=== PATIENT | male | born 1945 | race Caucasian/White ===

== ENCOUNTER 2016-10-14 11:32 | Inpatient (IN) | payer MEDICARE, OTHER ==
[~2016-10-14] VITALS: Ht 182.9 cm; Wt 143.3 kg
[~2016-10-14 11:32] MED LIST: Acetaminophen PO; CALC0.257 PO; CITA20TA11 PO; INSLIS SUBQ; INSU100V7 SUBQ; POLY17PO6 PO; SENN-133 PO; TAMS0.4C98 PO
[2016-10-14 11:48] VITALS: BP 95/34; PULSE 86; RESP 24; O2SAT 100
--- NOTE | 2016-10-14 11:58 | ED.REPORT ---
HPI-General Illness Date of Service Oct 14, 2016 ED Provider: Misael Schwartz MD Patient is a 71 year old male who presents to the ED via EMS complaining of vomiting onset a few days ago. The patient himself says he generally does not feel well but cannot localize his complaint. He denies cough, dysuria, or any other symptoms. Per caregiver, he has been sick for a number of days. He normally walks about but hasn't moved from his chair, developing sores on his buttocks. He has also been vomiting. Nursing Notes Stated Complaint: DIZZINESS Chief Complaint: General Complaint Nursing Notes Reviewed: Yes Allergies: Coded Allergies: No Known Allergies (Unverified , 03/16/16) Scheduled Ascorbic Acid (Vitamin C) 250 Mg Tab.chew 250 MG PO DAILY Citalopram (Citalopram) 20 Mg Tablet 20 MG PO DAILY Ferrous Sulfate (Iron) 325 Mg Capsule.er 325 MG PO DAILY Insulin Glargine (Lantus U100 Insulin Vial) 100 Unit/Ml Vial 10 UNIT SUBQ DAILY Insulin Human Lispro (HumaLOG U100 Insulin Vial) 100 Unit/Ml Unit 0 UNIT SUBQ WMHS Check blood sugars before meals and at bedtime. Use correction factor only before meals. Blood Sugar Lispro Correction: <151, 0 units; 151-175, 1 unit; 176-200, 2 units; 201-225, 3 units; 226-250, 4 units; 251-275, 5 units; 276-300 , 6 units; 301-325, 7 units; 326-350, 8 units; 351-375, 9 units; 376-400, 10 units; >400, 12 units. 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 Physical Exam Vital Signs Vital Signs Date Time Temp Pulse Resp B/P Pulse Ox O2 Delivery O2 Flow Rate FiO2 1/12/17 11:48 36.3 86 24 95/34 100 Room Air Initial VS: Reviewed General/Constitutional: Well-developed, Well-nourished Head / Eyes: Atraumatic, Normocephalic Neck: Full range of motion Neurologic: Alert Psychiatric: Mood/affect normal Distress / Hydration: Positive: Distress mild Small amount of brown emesis upon exam Respiratory / Chest: Atraumatic tachypneic Skin: Dry No erythema Multiple bilateral breakdowns in skin of buttocks, R more than L Interpretation & Diagnostics Lab Results Interpretation Result Diagram: 10/14/16 1045 10/14/16 1045 Test 10/14/16 10:45 10/14/16 12:03 10/14/16 12:40 10/14/16 13:29 White Blood Count 16.4th/mm3 (3.8-10.1) Red Blood Count 2.96mil/mm3 (4.40-5.80) Hemoglobin 9.0g/dL (13.8-17.2) Hematocrit 25.7% (41.0-50.0) Mean Corpuscular Volume 86.8fL (81-100) Mean Corpuscular Hemoglobin 30.4pg (27.0-35.0) Mean Corpuscular Hemoglobin Concent 35.0% (32.0-37.0) Red Cell Distribution Width 12.4% (12.3-15.4) Platelet Count 251bil/L (150-400) Neutrophils (%) (Auto) 67.7% (40-74) Lymphocytes (%) (Auto) 20.1% (14-46) Monocytes (%) (Auto) 11.0% (4-12) Eosinophils (%) (Auto) 0.1% (0-5) Basophils (%) (Auto) 0.1% (0-3) Prothrombin Time 11.5sec (8.1-12.5) Prothromb Time International Ratio 1.07ratio Sodium Level 130mEq/L (134-144) Potassium Level 5.3mEq/L (3.5-5.2) Chloride Level 93mEq/L (97-108) Carbon Dioxide Level 5mmol/L (18-29) Blood Urea Nitrogen 202mg/dL (8-27) Creatinine 14.07mg/dL (0.76-1.27) Estimat Glomerular Filtration Rate 4mL/min (>59) Glucose Level 148mg/dL (60-99) Calcium Level 7.2mg/dL (8.5-10.1) Phosphorus Level 12.4mg/dL (2.5-4.9) Magnesium Level 2.0mg/dL (1.6-2.6) Total Bilirubin 0.4mg/dL (0.0-1.2) Aspartate Amino Transf (AST/SGOT) 21U/L (0-50) Alanine Aminotransferase (ALT/SGPT) 20U/L (0-44) Alkaline Phosphatase 69U/L (25-160) Troponin T 0.192ug/L (0.0-0.011) Total Protein 8.1g/dL (6.4-8.4) Albumin 3.4g/dL (3.4-5.0) Hold Purple Top Tube Received (Received) Hold Blue Top Tube Received (Received) Hold Red Top Tube Received (Received) Hold [place] Top Tube Received (Received) Lactic Acid Level 1.7mmol/L (0.4-2.0) Urine Color Bloody (YELLOW) Urine Appearance Turbid (CLEAR,HAZY) Urine pH 6.0 (5.0-8.0) Urine Specific [place] 1.020 (1.003-1.035) Urine Protein 100mg/dL (NEG,TRACE) Urine Glucose (UA) Negativemg/dL (NEGATIVE) Urine Ketones Negativemg/dL (NEGATIVE) Urine Occult Blood Large (NEGATIVE) Urine Nitrite Negative (NEGATIVE) Urine Bilirubin Negative (NEGATIVE) Urine Urobilinogen Normalmg/dL (NORMAL) Urine Leukocyte Esterase Large (NEGATIVE) Urine RBC Packed/hpf (0-2) Urine WBC Packed/hpf (0-5) Urine Epithelial Cells Occasional/hpf (NONE-MOD) Urine Crystals None seen (NONE SEEN) Urine Bacteria Moderate/hpf (NONE-FEW) Urine Hyaline Casts None/lpf (NONE) Urine Granular Casts None seen (NONE SEEN) Urine Waxy Casts None seen (NONE SEEN) Urine Red Blood Cell Casts None seen (NONE SEEN) Urine White Blood Cell Casts None seen (NONE SEEN) Urine Mucus None seen (None Seen) Urine Trichomonas None seen (NONE SEEN) Urine Yeast None (NONE SEEN) Urinalysis Comment None Urine Culture Reflexed Indicated ECG Interpretation ECG Interpretation: sinus rate 94 RBBB and LAFB Abnormal T waves, lateral leads Time: 13:46 Interpreted by: ED physician X-Ray Chest Interpretation Chest Xray Interpretation: IMPRESSION: No acute cardiopulmonary findings. Dictated by: Nathalia Ray M.D. on 10/14/2016 at 13:45 Approved by: Nathalia Ray M.D. on 10/14/2016 at 13:45 View: Portable, 1 view Interpretation / Wet Read by: Interpret - Radiologist CT Abd / Pelvis Interpretation IMPRESSION: 1. Decreased, mild bilateral hydronephrosis. Decreased bilateral ureteral dilatation. No urinary tract calcification. 2. Moderate diffuse urinary bladder wall thickening, suggestive of cystitis. Cystoscopy is recommended to exclude underlying neoplasm. 3. Presumed transitional cell carcinoma versus renal cell carcinoma within the left interpolar kidney is unchanged. 4. Bowel containing umbilical hernia without evidence of associated strangulation, nor obstruction. Dictated by: Maria Eugenia Ball M.D. on 10/14/2016 at 14:04 Approved by: Maria Eugenia Ball M.D. on 10/14/2016 at 14:04 Study type: Abdominal CT no contrast Interpretation / Wet Read by: Interpret - Radiologist Re-Eval/Medical Decision Time of Eval: 14:00 Re-Evaluation/Progress Note: Discussed plan for admission. Patient understands and agrees with plan. All questions addressed at this time. Consultation #1: Referral / Consult Name: John Pickering MD Call Returned at: 13:50 Coil Finisher: Will see patient, Agrees with eval, Agrees with plan, Accepts admit Note: Discussed patient's case. Accepts admit. Consultation #2: Referral / Consult Name: Edgar De La Rosa MD Consulted With: Nephrology Call Returned at: 12:55 Coil Finisher: Will see patient Note: Discussed patient's case. Suggested lees. Counseled Regarding: Diagnosis, Lab results, Need for admission Discharge & Departure Primary Impression: GIGI (acute kidney injury) Additional Impressions: Obstructive uropathy Metabolic acidosis Disposition: ADMITTED TO HOSPITAL Referrals: Xiomara Clark MD (PCP) Crit Care Except Billable Proc Time Spent: 30-74 minutes Services Performed: Patient management by me, Time spent at bedside, Reviewing test results, Reviewing imaging, Discussing patient care, Documentation in record Scribe Attestation Portions of this note were transcribed by Betsey Jaime. I, Dr. Schwartz personally performed the history, physical exam and medical decision-making; I reviewed and confirmed the accuracy of the information in the transcribed note. Signed by: Betsey Jaime 10/14/16, 1433 copies to: Xiomara Clark MD, Kirk H MD Oct 14, 2016 11:58 BETSEY JAIME Oct 14, 2016 12:44
[2016-10-14] MEDS ORDERED: 0.9% Sodium Chloride 1,000 ML IV ONE ×2 (12:06→13:35)
[2016-10-14] MEDS ORDERED: Pantoprazole 4 mg/mL 10 mL Inj IVPUSH ONE (12:10)
[2016-10-14 12:27] LABS: BASOPHILS % (AUTO) 0.1 % (0-3); EOSINOPHILS % (AUTO) 0.1 % (0-5); Mean Corpuscular Hemoglobin 30.4 pg (27.0-35.0); Mean Corpuscular Volume 86.8 fL (81-100); NEUTROPHILS % (AUTO) 67.7 % (40-74); Platelet Count 251 bil/L (150-400)
[2016-10-14 12:31] LABS: INR 1.07 ratio
[2016-10-14] MEDS ORDERED: Pantoprazole Inj 80 MG, Pharmacy To Mix 1 EA in 0.9% Sodium Chloride 80 ML IV ONE ×2 (12:40)
[2016-10-14] MEDS ORDERED: Ondansetron 2 mg/mL 2 mL Inj IVPUSH PRN (12:40)
[2016-10-14 12:51] LABS: Phosphorus 12.4 mg/dL (2.5-4.9)
[2016-10-14 13:00] LABS: TROPONIN T 0.192 ug/L (0.0-0.011)
[2016-10-14] MEDS ORDERED: Piperacillin-Tazo 3.375 Gm Inj 3.375 GM in Dextrose 5% Minibag Plus 50 ML IV ONE (13:10)
[2016-10-14] MEDS ORDERED: Vancomycin Dose per Pharmacist XX ONE (13:10)
[2016-10-14] MEDS ORDERED: Lidocaine 2% 6mL Topical Jelly ONE (13:15)
--- NOTE | 2016-10-14 13:47 | DRSVH ---
PROCEDURE: X-RAY CHEST ONE VIEW, PORTABLE ([id number]) INDICATIONS: sepsis TECHNIQUE: One view of the chest was acquired. COMPARISON: None. FINDINGS: Surgical changes and devices: None. Lungs and pleura: No pleural effusions or pneumothorax. Lungs are clear. Mediastinum: Mediastinal contours appear normal. Heart size is normal. Bones and chest wall: No suspicious bony lesions. Overlying soft tissues appear unremarkable. IMPRESSION: No acute cardiopulmonary findings. Dictated by: Nathalia Ray M.D. on 10/14/2016 at 13:45 Approved by: Nathalia Ray M.D. on 10/14/2016 at 13:45
[2016-10-14] MEDS ORDERED: TAMS0.4C29 PO (13:59)
[2016-10-14] MEDS ORDERED: FERR325C PO (14:01)
[2016-10-14] MEDS ORDERED: ASCO-294 PO (14:01)
[2016-10-14] MEDS ORDERED: HYDROcodone-APAP 5-325 mg Tablet PO PRN (14:05)
[2016-10-14] MEDS ORDERED: Polyethylene Glycol (PEG) 17 Gm Powder PO PRN (14:05)
--- NOTE | 2016-10-14 14:06 | DRSVH ---
PROCEDURE: CT ABDOMEN AND PELVIS WITHOUT CONTRAST ([id number]) INDICATIONS: vomiting/sepsis TECHNIQUE: Noncontrast 5 mm thick sections acquired from the diaphragms to the symphysis. 5 mm coronal and sagi ttal reformats were then performed. For radiation dose reduction, the following was used: automated exposure control, adjustment of mA and/or kV according to patient size. COMPARISON: [facility], US, US RENAL, 03/17/2016, 17:49. [facility], CT, CT KUB, 03/16/2016, 18:44. FINDINGS: Image quality:. Degraded by motion artifact. ABDOMEN: Lung bases: Lung bases are clear. Heart size is enlarged. Solid organs: Liver and spleen are normal in size. Gallbladder is mildly distended, as before. Jamil creas is normal in contours. No adrenal nodules. Moderate renal atrophy is present, as before. Parti ally exophytic mass involving the left interpolar kidney is unchanged, measuring roughly 41 mm. No ne phrolithiasis. There is decreased, mild to moderate bilateral ureteral dilatation. Peritoneum and bowel: Unenhanced bowel loops demonstrate normal wall thickness and caliber. No free fluid or air. Nodes and vessels: No retroperitoneal or mesenteric adenopathy by size criteria. Aorta and inferior vena cava are normal in caliber. Miscellaneous: There is a 20 mm diameter umbilical hernia containing a loop of bowel, with no evidenc e of associated bowel strangulation, nor obstruction. PELVIS: Genitourinary: There is moderate diffuse urinary bladder thickening. Urinary bladder is decompressed, and demonstrates a Watts catheter within its lumen. Miscellaneous: No inguinal hernias or adenopathy. Bones: No suspicious bony lesions. No vertebral body compression fractures. IMPRESSION: 1. Decreased, mild bilateral hydronephrosis. Decreased bilateral ureteral dilatation. No urinary trac t calcification. 2. Moderate diffuse urinary bladder wall thickening, suggestive of cystitis. Cystoscopy is recommende d to exclude underlying neoplasm. 3. Presumed transitional cell carcinoma versus renal cell carcinoma within the left interpolar kidney is unchanged. 4. Bowel containing umbilical hernia without evidence of associated strangulation, nor obstruction. Dictated by: Maria Eugenia Ball M.D. on 10/14/2016 at 14:04 Approved by: Maria Eugenia Ball M.D. on 10/14/2016 at 14:04
[2016-10-14] MEDS ORDERED: ASCO250T7 PO (14:20)
[2016-10-14 14:22] LABS: APPEARANCE,URINE TURBID (CLEAR,HAZY); COLOR,URINE BLOODY (YELLOW); OCCULT BLOOD,URINE LARGE (NEGATIVE); UROBILINOGEN,URINE NORMAL (NORMAL)
[2016-10-14] MEDS ORDERED: Glucose 40% Oral Gel 15 Gm Tube PO PRN (14:25)
[2016-10-14] MEDS ORDERED: Sodium Bicarb (50 mEq) 8.4% 1 mEq/mL 50 mL Syringe IVPUSH ONE (14:30)
--- NOTE | 2016-10-14 14:35 | NUR ---
Med rec incomplete Pt. is agitated and confused but gives firm answers to medication questions indicating he takes only 4 pills daily and insulin once daily only some days. Meds he says he takes are: vitamin C, iron Otc, "a happy pill" and "another pill that's pink." "from Dr. Nicholas." Meds entered based on PCP list and [facility] history. Caregiver is unavailable to verify meds. She will bring med bottles in later. IT appears pt. is confused re: instructions on insulin use and is using it infrequently. Per [facility] (Pt.s stated only pharmacy) pt. has not filled meds since last year, 08/2016 and 04/2016. Med rec should be updated per med bottles brought in by caregiver Gill
--- NOTE | 2016-10-14 14:39 | NUR ---
Contacts Friend Grant Sevilla at pt. bedside and states "I'm his best bud." Offers assistance for pt. if needed. His phone number is: [phone].
--- NOTE | 2016-10-14 14:40 | NUR ---
Caregiver contact info. Per friend Grant, pt. lives with a private caregiver Gill Main whose number is [phone].
[2016-10-14 14:53] VITALS: BP 98/48; PULSE 101; RESP 20; O2SAT 100
[2016-10-14 14:55] VITALS: PULSE 102
--- NOTE | 2016-10-14 15:04 | NUR ---
Social work referral draw off worker/ unit rehabilitation case coordinator contacted for follow up regarding pt.'s ability to care for himself at home. Pt. is confused and agitated at the moment, unable to answer questions appropriately but per [facility] records pt. has not filled any meds but tamsulosin since 04/2016.
[2016-10-14] MEDS ORDERED: Vancomycin Serum Trough XX ONE (15:50)
[2016-10-14] MEDS ORDERED: VANCOMYCIN IV ONE ×2 (16:00)
[2016-10-14] MEDS: Sodium Bicarb 8.4% Inj 150 MEQ in Dextrose 5% 1,000 ML IV SCH (16:00)
[2016-10-14] MEDS ORDERED: DEXTROSE IV ONE ×2 (16:00)
[2016-10-14] MEDS: Sodium Chloride LOK Flush 10 mL Syringe IVFLUSH SCH (16:30)
[2016-10-14] MEDS: Insulin LISPRO 300 Unit/3 mL Inj SUBQ SCH ×2 (17:30→22:26)
[2016-10-14 17:37] LABS: Phosphorus 11.7 mg/dL (2.5-4.9)
--- NOTE | 2016-10-14 17:47 | PCM.HPMED ---
Subjective Date of Service Oct 14, 2016 Primary Provider: Admitting Physician: John Pickering MD Primary Care Physician: Xiomara Clark MD Attending Physician: John Pickering MD Admit Status: From the Emergency Department, Admit to [facility] Team Chief Complaint: 71-year-old man with history of obstructive uropathy presents with nausea, anorexia constitutional decline and acute renal failure History of Present Illness: The patient is very fatigued and not able to provide a lengthy history or significant details. He states that he has had nausea and vomiting for 3 days resulting in very poor oral intake. States he has been feeling lousy all over. This is been associated with presyncope, resulting in reduced ambulation. Denies fevers or bad chills. He denies infectious exposures. He has no pain. He has no dyspnea when queried about his urinary function he feels he has not been having a problem initiating urination. He has no suprapubic pain. Review of Systems: Complete review of systems was attempted. Patient was too fatigued to comply fully with significant findings are noted in the history of present illness and PMH. Incidental note is made of pruritus with skin lesions. He also endorses chronic lower extremity leg pain which he attributed to diabetic neuropathy. Allergies Coded Allergies: No Known Allergies (Unverified , 03/16/16) Home Medications Glargine insulin 10 units daily Lispro insulin by correctional scale Tamsulosin 0.4 mg daily Citalopram 20 mg daily Ferrous sulfate 325 mg daily Ascorbic acid 250 mg daily . PMH # Obstructive uropathy with urinary infection - admitted to [facility] and 03/18; Dr. Virk performed cystoscopy; Morganella species UTI # Chronic kidney disease - baseline creatinine at discharge and 03/18 was 4.6 # Left renal mass - 3.8 cm left superior pole by ultrasound in 03/2016 # Type II diabetes # Obesity class II Family History Patient is not aware of details. Denies family history of kidney problems. Social History Hx Alcohol Use: No Hx Substance Use: No Smoking Status: Former Smoker Living Arrangement: with Friends/Roommate (24-hour caregiver) Additional Information Minimally ambulatory. No special diet. Exam Vital Signs Vital Sign - Last Date Time Temp Pulse Resp B/P Pulse Ox O2 Delivery O2 Flow Rate FiO2 10/14/16 11:48 36.3 86 24 95/34 100 Room Air Exam General: Pale obese man with Kussmaul breathing and mild distress; uremic gallo looking. HEENT: sclerae anicteric, oral mucosa very dry Neck: no apparent JVD, supple Chest: No focal lesions or tenderness Lungs: Symmetric expansion, clear to auscultation Cardiac: S1S2, no murmur Abdomen: Protuberant abdomen. BS normal, non-tender. Watts present. No suprapubic tenderness. Extremities: No significant edema. No focal joint tenderness. Calf muscles are tender to palpate. Skin: Multiple small healed ulcerations on arms bilaterally;Chronic lower extremity stasis changes with dry ulceration. Neuro: A&O, cranial nerves appear symmetric, no flap, motor strength and coordination are grossly normal, no mild clonus, reflexes diminished Lab and Diagnostics Labs Uric acid 10.6 Total calcium 7.2 Phosphorus 12.4 Lactic acid 1.7 Troponin T 0.192 Result Diagram: 10/14/16 1045 10/14/16 1045 Microbiology UA: SG 1.020, protein 100 MG/DL, packed WBC, packed RBC, moderate bacteria Urine Culture pending Blood cultures pending X-Rays, CTs and MRIs PROCEDURE: CT ABDOMEN AND PELVIS WITHOUT CONTRAST ([id number]) IMPRESSION: 1. Decreased, mild bilateral hydronephrosis. Decreased bilateral ureteral dilatation. No urinary tract calcification. 2. Moderate diffuse urinary bladder wall thickening, suggestive of cystitis. Cystoscopy is recommended to exclude underlying neoplasm. 3. Presumed transitional cell carcinoma versus renal cell carcinoma within the left interpolar kidney is unchanged. 4. Bowel containing umbilical hernia without evidence of associated strangulation, nor obstruction. Dictated by: Maria Eugenia Ball M.D. on 10/14/2016 at 14:04 PROCEDURE: X-RAY CHEST ONE VIEW, PORTABLE ([id number]) IMPRESSION: No acute cardiopulmonary findings. Dictated by: Nathalia Ray M.D. on 10/14/2016 at 13:45 . Assessment & Plan 71-year-old man with history of obstructive uropathy, diabetes and obesity presents with probable gastroenteritis syndrome resulting in dehydration and acute renal failure. # Acute renal failure. Abdominal CT scan reveals no fixed obstruction. There is no hydronephrosis after Watts catheter was placed. Current differential is most likely dehydration related to gastroenteritis, less likely recurrent bladder outlet obstruction. Electrolytes are very disordered on presentation: metabolic acidosis, with anion gap 32, serum bicarbonate 5, Potassium 5.3, uric acid 10.6. Calcium phosphorus product approximately 90. - Aggressive isotonic hydration with sodium bicarbonate - Nephrology consult appreciated - Consider timing of placement of temporary hemodialysis catheter; will make patient nothing by mouth after midnight tonight pending this decision in the morning - Amphojel (oral aluminum hydroxide) for phosphate reduction; sevelamer with meals for phosphate binding - We will defer to nephrology for hyperuricemia treatment options - Follow daily renal panel - Renal adjustment of all medications # Urinary tract infection. Last infection in 03/2016 was a pansensitive Morganella morganii. He has not had significant antibiotic exposure since. Is not administered. - Continue ceftriaxone - Await results of urine culture # Sepsis. SIRS criteria on admission include pulse 101, respiratory rate 24, WBC 16.4. Mean arterial pressure is 65. Focal infection is urinary. Organ system dysfunction is acute renal failure. - Fluid resuscitation with sodium bicarbonate - Careful intake and output measurements with Watts catheter - We will reduce fluid rate after urine output greater than 0.5 mL per KG per hour - Monitor blood pressure - Antibiotics for urinary infection # Nausea vomiting or anorexia. Possible viral gastroenteritis, but no evidence of diarrhea. Doubt active infection at this time. Current nausea may be related to uremia. Abdomen is clinically benign. - Antiemetics as needed - Follow GI function clinically # Type II diabetes mellitus. - 4 times a day capillary blood glucose - Glucose control goals: Random less than 180, fasting less than 140, none less than 70 - Insulin as needed, divided 50-50 long-acting and nutritional/correctional # Obstructive uropathy. CT scan revealing bladder wall thickening, also chronic left renal lesion consistent with neoplasm. - Continue Watts catheter present - Urology consult Chronic stable problems: - Obesity - Depression - Anemia - current hemoglobin 9.0. Past baseline is approximately 8. No indication for transfusion at this time. Patient is admitted to inpatient service with expectation of greater than 2 midnights of inpatient therapy required for acute renal failure and urinary infection with sepsis Pain Evaluation: Adequate Pain Control VTE Prophylaxis: SCDs Resuscitation Status: CPR: Attempt Resuscitation Time spent 70 minutes John Pickering MD Oct 14, 2016 14:24
--- NOTE | 2016-10-14 19:42 | CONS ---
[address] [address] CONSULTATION REPORT PATIENT: SUMAYA VASQUEZ : 1945 MR#: [id number] ADMIT: 10/14/2016 JOB ID: [id number] DATE OF SERVICE: 10/14/2016 REQUESTING PHYSICIAN: Dr. Pickering. REASON FOR CONSULTATION: Management of severe renal insufficiency. CHIEF COMPLAINT: Not feeling well. PRESENT ILLNESS: This is a 71-year-old male with significant past medical history of chronic kidney disease, stage 4, obstructive uropathy, left renal mass, peripheral vascular disease, gout, type 2 diabetes who presented to the hospital with a complaint of weakness. The patient is a very poor historian. He was unable to provide any history. I have gathered the history from the medical record. The patient admitted previously at [facility] in March 2016 due to acute kidney injury on chronic kidney disease. He was found to have obstructive nephropathy. CAT scan of the abdomen was done. At that time showed [id number] bladder distention, severe bilateral hydroureteronephrosis and left renal mass. Urology was consulted. The patient has cystoscopy with dilatation of the urethral stricture. At that time, he came in with a serum creatinine of 9.77. After IV fluids and Watts catheter placement, his serum creatinine had gone down to 4.61 on the discharge day. Later on, the patient was seen by Dr. Santos on March 29, 2016 and a creatinine at that time came down slightly to 4.3. Watts catheter was later removed in April 2016. He was continued on Flomax 0.4 mg once a day. Last followup with urologist was seen April 2016. Moreover, he was seen by primary care physician in June 2016. Creatinine at that time was 3.11. Patient claimed that at the moment he is feeling weak, no appetite and has been vomiting for several days. When asked further questions, he refused again to provide me any further history. CT abdomen and pelvis done in the emergency department showed decreased bilateral hydronephrosis, decreased bilateral urethral dilatation, moderate diffuse urinary bladder wall thickening, presumed transitional cell carcinoma versus renal cell carcinoma within left interpolar kidney, and umbilical hernia. CHEST X-RAY: Does not show any acute infiltrates or pleural effusion. PAST MEDICAL HISTORY: 1. Chronic kidney disease, stage 4. Last serum creatinine in June was 3.1. 2. History of obstructive uropathy, status post cystoscopy with urethral dilatation. 3. History of a complicated UTI in March 2016. 4. Obesity. 5. Peripheral vascular disease. 6. Longstanding type 2 diabetes. 7. Gout. PAST SURGICAL HISTORY: Status post cystoscopy with urethral dilatation in March 2016. SOCIAL HISTORY: Denies current use of alcohol, tobacco, or illicit drugs. FAMILY HISTORY: Positive for kidney disease in the family. Father is on dialysis. REVIEW OF SYSTEMS: Unable to obtain. MEDICATIONS: 1. Vitamin C. 2. Citalopram. 3. Ferrous sulfate. 4. Insulin glargine. 5. Tamsulosin ER. PHYSICAL EXAMINATION: Vitals: Temperature 36.3, pulse 101, respiratory rate 20, blood pressure 98/48, pulse ox 100% with nasal cannula 2 L. General appearance: Chronically ill-looking, mild distress, tachypneic. HEENT: Mild pallor. No jaundice. No JVD. No lymphadenopathy. No thyroid enlargement. Dry mucosal membranes. Heart: Regular rhythm. Normal S1, S2. No murmurs, rubs, or gallops. Tachycardic. Lungs: Equal breath sounds bilaterally. No wheezing. No rhonchi. Abdomen: Soft, nontender, nondistended. No hepatosplenomegaly. Active bowel sounds. Extremity: No edema, cyanosis or clubbing. Skin: Multiple crusted papules and excoriations noted on upper extremity and lower extremities. LABORATORY: WBC 16.4, hemoglobin 9.0, sodium 130, potassium 5.3, chloride 93, bicarb 5, BUN 202, creatinine 14, calcium 7.2, phosphorus 12.4, troponin 0.192, uric acid 10.6. UA: Specific gravity 1.020, packed RBCs, packed WBCs. ASSESSMENT: 1. Severe renal insufficiency: Acute kidney injury on chronic kidney disease versus worsening chronic kidney disease and now reached end-stage renal disease. The patient presented with nausea, vomiting and weakness. Could be due to uremic symptoms or sepsis. At this point, I would like to stabilize the patient by giving IV fluids to restore intravascular volume. The patient has received normal saline in the emergency department. At this point, I will put him on D5 water plus sodium bicarb 150 mEq run at 200 cc/hour. Will repeat kidney function tests again today and tomorrow. If his clinical symptoms and kidney function do not improve, we will proceed with renal replacement therapy. 2. Electrolyte disturbance including hyponatremia, hyperkalemia, anion gap metabolic acidosis and hyperphosphatemia. At this point, I will give the patient sodium bicarbonate 100 mEq IV push followed by bicarb drip run at 200 cc/hour. Will start the patient on Amphojel 45 cc q.8 h. treating for severe hyperphosphatemia. 3. History of obstructive uropathy status post cystoscopy and urethral dilatation. We have inserted a Watts catheter. Patient now has gross hematuria. We will consult Urology for further recommendation. 4. Left renal mass. Rule out renal cell carcinoma and transitional cell carcinoma. 5. Hypotension secondary to intravascular volume depletion and sepsis. Recommend again IV fluids and broad-spectrum IV antibiotics. Thank you for the consultation. We will monitor along with you.
--- NOTE | 2016-10-14 19:54 | NUR ---
Admit to PCC/Bloody Urine/nausea Pt arrived on PCC at 1450 Cardiac: Pt denies CP, Tele: 90s-100s. IVCD Resp: Pt arrived on floor feeling short of breath and was tachypnic. Breathing seems to have eased after getting bicarb bolus. SPO2 mid 90s on RA. GI/: Pt reports mild nausea and abdominal discomfort, no emisis since arrival to floor. Watts placed in ED and draining dark red blood with clots. Dr odonnell is aware. Neuro: Pt is A&Ox3 but confused and his attention drifts.
[2016-10-14 20:16] VITALS: BP 121/71; PULSE 95; RESP 20; O2SAT 100
[2016-10-14] MEDS: cefTRIAXone Inj 2,000 MG in IV Premix 1 EACH IV SCH (20:25)
[2016-10-14] MEDS: Insulin GLARgine 100 Unit/mL Syringe SUBQ SCH (22:25)
[2016-10-14] MEDS: ALUMINUM HYDROXIDE PO SCH (22:26)
[2016-10-14 23:47] VITALS: BP 114/64; PULSE 80; RESP 20; O2SAT 100
[2016-10-15] VITALS (12 sets, daily range): BP systolic 101–112; BP diastolic 52–69; PULSE 77–85; RESP 16–28; O2SAT 99
[2016-10-15] MEDS: Sodium Chloride LOK Flush 10 mL Syringe IVFLUSH SCH ×4 (00:30→23:11)
[2016-10-15] MEDS: Sodium Bicarb 8.4% Inj 150 MEQ in Dextrose 5% 1,000 ML IV SCH ×5 (00:32→20:15)
[2016-10-15] MEDS ORDERED: 0.9% Sodium Chloride 250 ML ONE ×2 (03:13→06:22)
[2016-10-15] MEDS: ALUMINUM HYDROXIDE PO SCH ×3 (06:30→22:30)
[2016-10-15] MEDS: Ondansetron 2 mg/mL 2 mL Inj IVPUSH PRN ×3 (07:03→18:35)
--- NOTE | 2016-10-15 08:01 | NUR ---
H&H/Blood transfusion/Nausea Notified fire extinguisher charger that pt was putting out a substantial amount of what looked like just blood in lees, vitals stable but pt was rather pale. director financial systems ordered stat H&H which was critical at 6.9/19.6, notified, order given for 2 units PRBCs to transfuse. Once consent given and signed by MD and pt, these were started. Pt has completed one unit PRBC w/out complication. Second one started this morning, day nurse aware. also ordered for H&H to be drawn 3 hours post second infusion of PRBCs, day nurse aware. Pt denied pain or nausea throughout night but early this morning stated he was having nausea. No emesis noted, Zofran given, pt stated some relief with this. Vitals stable within first 15 min of second blood transfusion, continuing to monitor, day nurse aware of nausea and transfusion in progress. Addendum: 10/15/16 at 0817 by JOHN DISLA RN Lees output slowed significantly at end of shift. Bicarb infusion slowed to 100 while transfusion was also running in separate line so as not to overload.
[2016-10-15] MEDS: cefTRIAXone Inj 2,000 MG in IV Premix 1 EACH IV SCH (08:40)
[2016-10-15] MEDS: Insulin LISPRO 300 Unit/3 mL Inj SUBQ SCH ×4 (08:49→21:26)
[2016-10-15 10:12] LABS: BASOPHILS % (AUTO) 0.2 % (0-3); EOSINOPHILS % (AUTO) 0.3 % (0-5); Mean Corpuscular Hemoglobin 30.3 pg (27.0-35.0); Mean Corpuscular Volume 84.3 fL (81-100); NEUTROPHILS % (AUTO) 71.5 % (40-74); Platelet Count 174 bil/L (150-400)
[2016-10-15 10:36] LABS: Phosphorus 10.3 mg/dL (2.5-4.9)
--- NOTE | 2016-10-15 12:30 | CONS ---
[address] [address] CONSULTATION REPORT PATIENT: SUMAYA VASQUEZ : 1945 MR#: [id number] ADMIT: 10/14/2016 JOB ID: [id number] DATE OF SERVICE: 10/15/2016 INFECTIOUS DISEASE CONSULT: I thank Dr. Vihsal Pickering for this timely consult. REASON FOR CONSULTATION: Staphylococcal bacteremia and apparent staphylococcal urinary tract infection in a patient with rapidly progressive renal failure and multiple medical problems. 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 He has had a variety of problems over the past few years including obstructive uropathy, nephrolithiasis, multiple urinary tract infections, progressive renal insufficiency and a left renal mass. The left renal mass was noted originally this past summer and has been followed expectantly without biopsy or surgery to this point. He has undergone urologic procedures though to address his obstructive uropathy. More recently, his creatinine was about 3-4, and he was being followed for that as well. The patient was admitted yesterday evening through the emergency department because of persistent nausea, vomiting, weakness, decreased oral intake, anorexia, near syncope and malaise. He reports these symptoms have been fairly insidious and worsening over several days. Because of this profound weakness and GI symptoms, he has really been unable to get around or do much of anything, and for that reason, presented to the ED and was admitted. He was admitted because his creatinine was found to be 12, and he had a basically purplish, low-volume urine output. Temporary dialysis now being urgently arranged. The patient tells us in the past few days though he has been free of any fevers, chills, or sweats. He states he is always short of breath, both at rest and with exertion, and he is not sure that has changed very much. He denies urgency, frequency, or dysuria but does note that his urine production has dropped off and when asked specifically if it has been purple, he agrees that it actually has been, though he did not volunteer that as part of his history. At this point, the patient reports he is short of breath and extremely hungry. PAST MEDICAL HISTORY: 1. Obstructive uropathy. 2. Nephrolithiasis. 3. Chronic renal insufficiency. 4. History of recurrent urinary tract infections including morganella UTIs. 5. Left renal mass, which has been followed expectantly since March 2016. 6. Type 2 diabetes. 7. Gout. 8. Peripheral vascular disease. 9. Morbid obesity, with BMI greater than 40. 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 He was a rare consumer of alcohol, and does not drink at all anymore. He is an ex-cigarette smoker. FAMILY HISTORY: Negative for tuberculosis. REVIEW OF SYSTEMS: The patient has no significant headache or visual complaints. He denies sore throat or trouble swallowing. Says he is always short of breath but does not notice much of a cough. No chest pain at this time. He has had nausea and vomiting, which have been worsening for several days. No diarrhea. He denies urgency, frequency, or dysuria but notes that his urine is purple. He has just diffuse and unrelenting weakness, which has gotten so bad he cannot get out of a chair, basically. He denies focal neurologic complaint. PHYSICAL EXAMINATION: Reveals a quite ill-appearing gentleman lying supine in his hospital bed. His temperature is 36.4, and he has been afebrile during his less than 24 hours here, pulse 85, respiratory rate 28, blood pressure 108/67. He is saturating well on room air. Examination of the mental status reveals that he is somnolent at times but can be roused to give a history, which is accurate, and that he is oriented when he aroused and awake. Head without trauma. Eyes without scleral icterus or conjunctivitis. Nose normal. Oral cavity without thrush or hairy leukoplakia. His neck is without adenopathy. Lungs relatively clear. Cardiac tones: Regular rate and rhythm but distant. No rub is heard. Abdomen obese, soft, and nontender. Penis and scrotum appear normal. A Watts catheter is present draining an extraordinary thick purplish liquid, which we assume to be urine. Examination of the extremities reveals diffuse bilateral venous stasis changes with some brawny changes to the skin. There is no obvious infection. The patient has diminished pulses in his feet bilaterally. In fact, I cannot palpate them. He has slow capillary refill bilaterally. There is no obvious infection of his lower extremities at this point. Neurologically, the patient can move his extremities but otherwise formal neuro exam is really not possible due to his lethargy. He does not have peripheral stigmata of endocarditis on his hands or in his conjunctivae. LABORATORIES: Include white blood count 16,000 on admission, now 11,000. Normal diff, interestingly. He is quite anemic with hematocrit this morning of 20. Creatinine is an amazing 12.9. It was 14 yesterday in the emergency department. His most recent creatinine in the computer at least before that was 4.6, which was this summer. Albumin 2.7. Parathyroid hormone 763. Liver function tests are normal. Vancomycin trough was 25, which indicates he is going to have vancomycin on board for a long time. Urinalysis shows packed white cells. Urine culture is growing a heavy growth of a staph species, which is beta hemolytic, though not proven, that strongly suggests this is Staph aureus. A single blood culture, 10/06, done in the ED yesterday has turned positive, and we have no idea yet if this is coag-negative or positive. IMAGING: Abdominal and pelvic CT scan shows mild hydronephrosis, which is bilateral. No urinary tract calcifications are seen. There is diffuse bladder wall thickening, which could be malignant or cystitis, and a presumed malignancy in the left kidney which is unchanged from this summer and is thought to be transitional cell or renal cell. IMPRESSION: This is an interesting and unfortunate case of an older gentleman who has had fairly severe and worsening chronic renal insufficiency for some months now. He has a great deal of urinary tract pathology, having had obstructive uropathy, stones and a left renal mass previously diagnosed. He presents now basically with symptoms consistent with acute superimposed on chronic renal insufficiency with life-threatening abnormalities of his creatinine and potassium. Obviously, he will be requiring emergent dialysis. The infectious disease issue is there appears to be a complicated staphylococcal urinary tract infection. We have preliminary evidence of Staphylococcus aureus in the urine, and a single positive blood culture. The blood culture could negative turner to be coag-negative and unrelated but my concern would be that he has a bacteremic Staphylococcus aureus urinary tract infection, which would require us to, among other things, exclude the possibility of an endocarditis. RECOMMENDATIONS: 1. We await the identification of the organism in the blood. If this is indeed Staph aureus, the patient will require serial blood cultures over the next several days until we have evidence of negativity. 2. If this is indeed a Staph aureus in his blood, we will need a transthoracic echo and if there is any question about the results, we will need a transesophageal echo. 3. Choice of antibiotics in this situation is a bit difficult, I would like to avoid vancomycin, as we still, I think, have hopes that his renal function may return. Linezolid could be useful here but can cause issues with platelets, as well as metabolic acidosis. It might be best to avoid it. It is also not a great drug for bacteremia. That leaves us with daptomycin and ceftaroline. A review of the literature shows that daptomycin can be quite useful in urinary tract infections, as 50% to 70% is excreted in the urine. Ceftaroline would be an equivalent choice, I believe. 4. Based on a variety of considerations, will start with daptomycin in a dose of 1 g every 48 hours which is a renally adjusted dose. 5. Will continue to follow this interesting patient with you as the case evolves and we see what the final identification of the blood and urine isolates are.
--- NOTE | 2016-10-15 12:54 | DRSVH ---
PROCEDURE: X-RAY CHEST ONE VIEW, PORTABLE ([id number]) INDICATIONS: CXR after HD cath placement. TECHNIQUE: One view of the chest was acquired. COMPARISON: [facility], CR, XR CHEST 1VW (PORTABLE), 10/14/2016, 13:12. FINDINGS: Surgical changes and devices: Central venous catheter projects to the mid SVC via a right IJ approach . Lungs and pleura: No pleural effusions or pneumothorax. Lungs are clear. Mediastinum: Mediastinal contours appear normal. Heart size is normal. Bones and chest wall: No suspicious bony lesions. Overlying soft tissues appear unremarkable. IMPRESSION: Status post placement of central venous catheter. Dictated by: Alethea Harris MD, PhD on 10/15/2016 at 12:53 Approved by: Alethea Harris MD, PhD on 10/15/2016 at 12:53
--- NOTE | 2016-10-15 14:21 | NUR ---
Dialysis Report given to me from Korina Maravilla
--- NOTE | 2016-10-15 14:33 | DRSVH ---
[facility] [address] [place] [address] Echocardiogram Report Name: SUMAYA VASQUEZ te: 10/15/2016 Melany t: 70 in Hospital Exam Location: [facility] Weigh t: 300 lb Gender: Male BSA: 2.5 m2 : 1945 Age: 71 yrs BP: 1 10/68 mmHg Reason For Study: HYPOTENSION, SEPSIS Ordering Physician: HOSPITALIST [facility] Performed By: Maximilian Alexander Referring Physician: APRIL ACKERMAN Interpretation Summary The study quality was technically difficult. The left ventricle is moderate-severely dilated. The ejection fraction is estimated to be 30-35%. There is posterolateral wall akinesis. There is moderate to severe global hypokinesis. The best contractility is in the mid to distal anterior wall and anteroseptum. The right ventricle is not well visualized. Grossly, RV is atleast mildly dilated and function is moderately reduced. There is mild to moderate mitral regurgitation. Evaluation of regurgitation is inadequate. There is mild tricuspid regurgitation. Pulmonary artery pressures cannot be estimated because of the lack of a measurable TR jet velocity. The ascending aorta is mildly enlarged. Procedure: A two-dimensional transthoracic echocardiogram with color flow and Doppler was performed. A contrast injection of Definity was performed to improve assessment of LV function. Parasternal images are good; apical images are difficult. There is no prior echocardiogram noted for this patient. The study quality was technically difficult. The patient was in normal sinus rhythm during the exam. Left Ventricle: The left ventricle is moderate-severely dilated. There is borderline concentric left ventricular hypertrophy. The left ventricular apex is not well visualized. The ejection fraction is estimated to be 30-35%. There is moderate to severe global hypokinesis. The best contractility is in the mid to distal anterior wall and anteroseptum. There is posterolateral wall akinesis. Diastolic function could not be accurately assessed due to unobtainable data. Right Ventricle: The right ventricle is not well visualized. Grossly, RV is atleast mildly dilated and function is moderately reduced. Atria: The left atrium is not well visualized. Right atrium not well visualized. The interatrial septum is intact with no evidence for an atrial septal defect. Mitral Valve: The mitral valve is not well visualized. The mitral valve leaflets are mildly calcified. The mitral valve chordae are thickened and/or calcified. There is mild to moderate mitral regurgitation. Evaluation of regurgitation is inadequate. Aortic Valve: The aortic valve is trileaflet. The aortic valve is slightly calcified. There is no aortic valve stenosis. No aortic regurgitation is present. Tricuspid Valve: The tricuspid valve is not well visualized. Pulmonary artery pressures cannot be estimated because of the lack of a measurable TR jet velocity. There is mild tricuspid regurgitation. Pulmonic Valve: The pulmonic valve is not well seen, but is grossly normal. There is mild pulmonic regurgitation. Great Vessels: The aortic root is normal size. The ascending aorta is mildly enlarged. The pulmonary artery is normal size. The inferior vena cava was not visualized. Pericardium/ Pleura There is no pericardial effusion. There is no pleural effusion. MMode/2D Measurements & Calculations LVIDd: 7.2 cm LVOT diam EDV(MOD-sp2) LVIDs: 6.3 cm LA A2 area: 22.6 cm : 267.1 ml FS: 13.4 % LA A4 area: 20.8 cm AoV Opening IVSd: 1.1 cm LA length (vol): 5.4 cm LVPWd: 1.1 cm LA vol: 73.9 ml Ao root diam LA vol index asc Aorta : 29.2 ml/m2 Diam: 3.9 cm LV rico. diameter/BSA LV sys. diameter/BSA (cm/m^2): 2.9 (cm/m^2): 2.5 Doppler Measurements & Calculations Ao V2 max: 163.8 cm/secMV E max americo MV E/A: 0.87 PA V2 max Ao max P.7 mmHg : 87.9 cm/sec Med Peak E' Americo : 101.8 cm/sec Ao mean P.9 mmHg MV A max americo PA mean PG LVOT Max Americo : 101.6 cm/sec E/E' med: 14.9 : 2.4 mmHg : 86.8 cm/sec Lat Peak E' Americo AGA(I,D): 2.3 cm E/E' lat: 17.8 sev ratio: 0.55 MV dec time: 0.20 sec Ao V2 mean LV V1 max PG PA V2 mean : 126.4 cm/sec : 75.6 cm/sec Ao V2 VTI: 31.9 cm LV V1 VTI PA pr(Accel) AGA(V,D): 2.3 cm2 : 17.4 cm : 27.6 mmHg AGA indexed to BSA E/e' average (cm^2/m^2): 0.92 : 16.3 Reading Physician:DIAN
--- NOTE | 2016-10-15 14:46 | NUR ---
Skin Care Pt buttocks, emerald-area and pannus skin excoriated, red and painful. Pt is currently incontinant of stool. Wound care to consult but unable to see patient before dialysis. Skin care provided at this time included cleaning of area with premoistened wipes, followed by 3 in 1 barrier. The areas with significant skin breakdown were additionally treated with a thin layer of Critic-Aid Clear
--- NOTE | 2016-10-15 15:06 | NUR ---
nausea Called to room, requested by ceramic painter to give patient zofran. Lab tubes sent down. MD at bedside.
--- NOTE | 2016-10-15 15:44 | PCM.PROC ---
Procedure Note Pre Procedure Diagnosis: Severe renal insufficiency Post Procedure Diagnosis: Severe renal insufficiency Procedure: Right IJ ly cath placement. Indication for Procedure: Hemodialysis Procedural Analgesia: Local 1% lidocaine Procedure Details: Consent: Detailed explanation of the procedure, treatment options, risks including but not limited to infection and bleeding, and benefits were explained to the patient. A written informed consent was obtained. Technique: A time out was preformed identifying the correct procedure, the correct location with the nursing staff. The right neck was prepped with 2% chlorhexidine and draped with a full length sterile sheet in the usual fashion. 1% lidocaine was administered subcutaneously for local anesthesia. The right internal jugular vein was accessed under ultrasound guidance with an 18 gauge thin wall needle. A ly catheter was inserted via the seldinger technique. Blood was withdrawn from all lumens and flushed with normal saline. The catheter was sutured in place and a sterile dressing was applied over the site prior to removal of drapes. The patient tolerated the procedure well and there were no complications. Chest x ray is pending at this time. EBL: 5 ml Complication: None Edgar De La Rosa MD Oct 15, 2016 15:44
--- NOTE | 2016-10-15 15:51 | PCM.PNMED ---
Subjective Date of Service Oct 15, 2016 Subjective gross hematuria noted, low Hb s/p blood transfusion. critical value of electrolytes noted. pt agreed to proceed with ly cath placement and HD. Exam Vital Signs Vital Sign - Last Date Time Temp Pulse Resp B/P Pulse Ox O2 Delivery O2 Flow Rate FiO2 10/15/16 12:36 36.3 77 18 109/52 99 Room Air 10/14/16 14:53 2.00 Intake and Output 10/14/16 10/14/16 10/15/16 Cumulative From/Thru 15:00 23:00 07:00 10/14/16 14:53 - 10/15/16 06:04 Intake Total 439 ml 572 ml 1011 ml Output Total 750 ml 650 ml 1400 ml Balance -311 ml -78 ml -389 ml Intake Oral 200 ml 200 ml 400 ml IV Total 239 ml 72 ml 311 ml Packed Cells 300 ml 300 ml Output Urine Total 750 ml 650 ml 1400 ml Lab and Diagnostics Result Diagram: 10/15/16 1005 10/15/16 1005 Microbiology UA: SG 1.020, protein 100 MG/DL, packed WBC, packed RBC, moderate bacteria Urine Culture pending Blood cultures pending X-Rays, CTs and MRIs PROCEDURE: CT ABDOMEN AND PELVIS WITHOUT CONTRAST ([id number]) IMPRESSION: 1. Decreased, mild bilateral hydronephrosis. Decreased bilateral ureteral dilatation. No urinary tract calcification. 2. Moderate diffuse urinary bladder wall thickening, suggestive of cystitis. Cystoscopy is recommended to exclude underlying neoplasm. 3. Presumed transitional cell carcinoma versus renal cell carcinoma within the left interpolar kidney is unchanged. 4. Bowel containing umbilical hernia without evidence of associated strangulation, nor obstruction. Dictated by: Maria Eugenia Ball M.D. on 10/14/2016 at 14:04 PROCEDURE: X-RAY CHEST ONE VIEW, PORTABLE ([id number]) IMPRESSION: No acute cardiopulmonary findings. Dictated by: Nathalia Ray M.D. on 10/14/2016 at 13:45 . Assessment & Plan 1. Severe renal insufficiency: Acute kidney injury on chronic kidney disease versus worsening chronic kidney disease and now reached end-stage renal disease. - Pt with intravascular volume depletion and sepsis. - Severe electrolyte derangements noted - Will proceed with ly cath placement and HD today. 2. Electrolyte disturbance including hyponatremia, hyperkalemia, anion gap metabolic acidosis and hyperphosphatemia. continue amphojel for a couple more days. continue NaHCO3 gtt. 3. History of obstructive uropathy status post cystoscopy and urethral dilatation. Now with gross hematuria. 4. Left renal mass. Rule out renal cell carcinoma and transitional cell carcinoma. 5. Hypotension secondary to intravascular volume depletion and sepsis. 6. Sepsis, complicated UTI. Plan: daily HD x 3. continue NaHCO3 gtt 100 m/hr. repeat BMP in am. VTE Prophylaxis: SCDs VTE Mechanical Devices: Intermittant Pneumatic CD Resuscitation Status: CPR: Attempt Resuscitation Edgar De La Rosa MD Oct 15, 2016 15:51
--- NOTE | 2016-10-15 18:16 | PCM.PNMED ---
Subjective Date of Service Oct 15, 2016 Subjective 71-year-old male with history of obstructive uropathy, type II diabetes mellitus presents with acute renal failure and urinary tract infection with sepsis. No significant complaints today except desire to drink fluids and moisten dry mouth. No dyspnea. Seems overall more comfortable than yesterday. Exam Vital Signs Vital Sign - Last Date Time Temp Pulse Resp B/P Pulse Ox O2 Delivery O2 Flow Rate FiO2 10/15/16 12:36 36.3 77 18 109/52 99 Room Air 10/14/16 14:53 2.00 Intake and Output 10/14/16 10/14/16 10/15/16 Cumulative From/Thru 15:00 23:00 07:00 10/14/16 14:53 - 10/15/16 06:04 Intake Total 439 ml 572 ml 1011 ml Output Total 750 ml 650 ml 1400 ml Balance -311 ml -78 ml -389 ml Intake Oral 200 ml 200 ml 400 ml IV Total 239 ml 72 ml 311 ml Packed Cells 300 ml 300 ml Output Urine Total 750 ml 650 ml 1400 ml Exam General: Pale obese man in no acute distress. HEENT: sclerae anicteric, oral mucosa dry Neck: no apparent JVD, Lungs: clear to auscultation Cardiac: S1S2, no murmur Abdomen: Protuberant abdomen. BS normal, non-tender. Watts present. No suprapubic tenderness. Extremities: No significant edema. Skin: Multiple small healed ulcerations on arms bilaterally;Chronic lower extremity stasis changes with dry ulceration. Neuro: A&O, cranial nerves appear symmetric, motor strength and coordination are grossly normal, IVs and Medications Medications Reviewed: Medications were reviewed in detail Lab and Diagnostics Result Diagram: 10/15/16 1005 10/15/16 1005 Microbiology UA: SG 1.020, protein 100 MG/DL, packed WBC, packed RBC, moderate bacteria Urine Culture pending Blood cultures pending X-Rays, CTs and MRIs PROCEDURE: CT ABDOMEN AND PELVIS WITHOUT CONTRAST ([id number]) IMPRESSION: 1. Decreased, mild bilateral hydronephrosis. Decreased bilateral ureteral dilatation. No urinary tract calcification. 2. Moderate diffuse urinary bladder wall thickening, suggestive of cystitis. Cystoscopy is recommended to exclude underlying neoplasm. 3. Presumed transitional cell carcinoma versus renal cell carcinoma within the left interpolar kidney is unchanged. 4. Bowel containing umbilical hernia without evidence of associated strangulation, nor obstruction. Dictated by: Maria Eugenia Ball M.D. on 10/14/2016 at 14:04 PROCEDURE: X-RAY CHEST ONE VIEW, PORTABLE ([id number]) IMPRESSION: No acute cardiopulmonary findings. Dictated by: Nathalia Ray M.D. on 10/14/2016 at 13:45 . Assessment & Plan 71-year-old man with history of obstructive uropathy, diabetes and obesity presents with probable gastroenteritis syndrome resulting in dehydration and acute renal failure. Acute and/or high-risk problems: # Acute renal failure. Abdominal CT scan reveals no anatomic issue. There is no hydronephrosis after Watts catheter was placed. Most likely dehydration related to urinary infection and possibly gastroenteritis, less likely recurrent bladder outlet obstruction. On presentation: metabolic acidosis, with anion gap 32, serum bicarbonate 5, Potassium 5.3, uric acid 10.6. Calcium phosphorus product approximately 90. For hemodialysis today. - Aggressive hydration with sodium bicarbonate - Follow daily renal panel - Renal adjustment of all medications - Hemodialysis per nephrology service # Urinary tract infection. Last infection in 03/2016 was a pansensitive Morganella morganii. He has not had significant antibiotic exposure since. Now with staph in blood cultures. He received vancomycin on presentation in the emergency department - Infectious disease consult - Follow vancomycin trough - Further antibiotics per ID # Severe Sepsis. SIRS criteria on admission include pulse 101, respiratory rate 24, WBC 16.4. Mean arterial pressure is 65. Focal infection is urinary. Organ system dysfunction is acute renal failure. Blood culture showing positive staph morphology. - Fluid resuscitation with sodium bicarbonate - Careful intake and output measurements with Watts catheter - Monitor blood pressure - Antibiotics for urinary infection # Nausea vomiting or anorexia. Possible viral gastroenteritis, but no evidence of diarrhea. Doubt active infection at this time. Current nausea may be related to uremia. Abdomen is clinically benign. - Antiemetics as needed - Follow GI function clinically # Type II diabetes mellitus. Split next basal bolus insulin with reasonable glycemic control at present. - 4 times a day capillary blood glucose - Glucose control goals: Random less than 180, fasting less than 140, none less than 70 - Insulin as needed, divided 50-50 long-acting and nutritional/correctional # Obstructive uropathy. CT scan revealing bladder wall thickening, also chronic left renal lesion consistent with neoplasm. - Continue Watts catheter present - Urology consult recommends outpatient follow-up with Dr. Nicholas Chronic stable problems: - Obesity - Depression - Anemia - current hemoglobin 9.0. Past baseline is approximately 8. No indication for transfusion at this time. VTE Prophylaxis: SCDs VTE Mechanical Devices: Intermittant Pneumatic CD Resuscitation Status: CPR: Attempt Resuscitation Time spent 35 minutes John Pickering MD Oct 15, 2016 18:16
--- NOTE | 2016-10-15 18:30 | NUR ---
Dialysis note: S/P catheter placement. 3 hrs tx. Zero net UF. Right IJ catheter, dsg changed, sutures intact. Hepatitis serologies drawn. Pls see DTR for VS details, hypotensive at the start of tx, Dr Ewing notified, 200 ml NS given and BP improved. Qb 200-250 with catheter limbs reversed A-V V-A due to poor catheter function; with constant alarms in relation to patient's movements; Dr Ewing notified - repositioned and re-sutured catheter. Heparin prime given. O2 @ 2L via NC on. Pt complained of nausea, PRN Zofran 4 mg IV given. Slept at intervals. Catheter flushed, heparin dwelled and secured. Report given to Korina Lebron RN. Transferred back to patient's room in stable condition.
[2016-10-15] MEDS: Insulin GLARgine 100 Unit/mL Syringe SUBQ SCH (21:37)
[2016-10-15] MEDS: Promethazine Inj 12.5 MG in 0.9% Sodium Chloride 50 ML IV PRN (23:07)
[2016-10-16] MEDS: Ondansetron 2 mg/mL 2 mL Inj IVPUSH PRN ×3 (03:32→18:33)
[2016-10-16] MEDS: Sodium Bicarb 8.4% Inj 150 MEQ in Dextrose 5% 1,000 ML IV SCH (03:33)
[2016-10-16 03:37] VITALS: BP 100/63; PULSE 85; RESP 20; O2SAT 99
--- NOTE | 2016-10-16 04:53 | NUR ---
Nausea / Skin Pt continues to have persistent nausea and retching, no significant emesis. Obtained new order for promethazine with improved results, does not last full 6 hours; Zofran used with minimal improvement. Pt has episodes of possible confusion, at times he does not answer questions, at other times is fully alert. Able to assist with turns in bed but refuses despite education about skin issues to buttocks; skin is very excoriated. Incontinent of stool; cleaned, barrier wipes and cream used for protection. Repositioned as often as pt will allow, willingness is decreased by nausea and suffering. Frequent care and assistance offered. Hourly rounding ongoing.
[2016-10-16 05:13] VITALS: PULSE 86
[2016-10-16] MEDS: Promethazine Inj 12.5 MG in 0.9% Sodium Chloride 50 ML IV PRN ×2 (05:30→22:19)
[2016-10-16 05:44] LABS: Phosphorus 5.9 mg/dL (2.5-4.9)
[2016-10-16] MEDS: ALUMINUM HYDROXIDE PO SCH ×3 (06:30→22:30)
[2016-10-16] MEDS ORDERED: Potassium Chloride Inj 20 MEQ in Dextrose 5% 250 ML IV ONE (07:55)
[2016-10-16] MEDS: Insulin LISPRO 300 Unit/3 mL Inj SUBQ SCH ×4 (08:00→22:00)
[2016-10-16] MEDS: SODIUM CHLORIDE 0.9% IV SCH (08:30)
[2016-10-16] MEDS: DAPTOMYCIN IV SCH (08:30)
[2016-10-16] MEDS: Sodium Chloride LOK Flush 10 mL Syringe IVFLUSH SCH ×2 (08:30→16:30)
[2016-10-16 10:19] VITALS: PULSE 83
[2016-10-16 12:39] VITALS: BP 92/55; PULSE 92; RESP 22; O2SAT 99
--- NOTE | 2016-10-16 13:23 | PCM.PNMED ---
Subjective Date of Service Oct 16, 2016 Subjective 71-year-old male with history of obstructive uropathy, type II diabetes mellitus presents with acute renal failure and urinary tract infection with sepsis. No significant complaints today except continued nausea, desire to drink fluids and moisten dry mouth. No abdomen pain. No dyspnea. Exam Vital Signs Vital Sign - Last Date Time Temp Pulse Resp B/P Pulse Ox O2 Delivery O2 Flow Rate FiO2 10/16/16 12:39 36.4 92 22 92/55 99 Room Air 10/14/16 14:53 2.00 Intake and Output 10/15/16 10/15/16 10/16/16 Cumulative From/Thru 15:00 23:00 07:00 10/14/16 14:53 - 10/16/16 06:39 Intake Total 4140 ml 1715 ml 1880 ml 8746 ml Output Total 0 ml 1200 ml 750 ml 3350 ml Balance 4140 ml 515 ml 1130 ml 5396 ml Intake Oral 200 ml 175 ml 775 ml IV Total 3890 ml 1515 ml 1705 ml 7421 ml Packed Cells 250 ml 550 ml Output Urine Total 1200 ml 750 ml 3350 ml Ultrafiltrate 0 ml 0 ml # Bowel Movements 2 2 Exam General: Pale obese man slightly dysphoric appearing. HEENT: sclerae anicteric, oral mucosa dry Neck: no apparent JVD, Lungs: clear to auscultation, no rales Cardiac: S1S2, no murmur Abdomen: Protuberant abdomen. BS normal, non-tender. Watts present. No suprapubic tenderness. Extremities: No significant edema. Skin: Multiple small healed ulcerations on arms bilaterally;Chronic lower extremity stasis changes with dry ulceration. Neuro: A&O, cranial nerves appear symmetric, motor strength and coordination are grossly normal, IVs and Medications Medications Reviewed: Medications were reviewed in detail Lab and Diagnostics Result Diagram: 10/15/16 1005 10/16/16 0500 Microbiology UA: SG 1.020, protein 100 MG/DL, packed WBC, packed RBC, moderate bacteria Urine Culture pending Blood cultures pending X-Rays, CTs and MRIs PROCEDURE: CT ABDOMEN AND PELVIS WITHOUT CONTRAST ([id number]) IMPRESSION: 1. Decreased, mild bilateral hydronephrosis. Decreased bilateral ureteral dilatation. No urinary tract calcification. 2. Moderate diffuse urinary bladder wall thickening, suggestive of cystitis. Cystoscopy is recommended to exclude underlying neoplasm. 3. Presumed transitional cell carcinoma versus renal cell carcinoma within the left interpolar kidney is unchanged. 4. Bowel containing umbilical hernia without evidence of associated strangulation, nor obstruction. Dictated by: Maria Eugenia Ball M.D. on 10/14/2016 at 14:04 PROCEDURE: X-RAY CHEST ONE VIEW, PORTABLE ([id number]) IMPRESSION: No acute cardiopulmonary findings. Dictated by: Nathalia Ray M.D. on 10/14/2016 at 13:45 . Assessment & Plan 71-year-old man with history of obstructive uropathy, diabetes and obesity presents with probable gastroenteritis syndrome resulting in dehydration and acute renal failure. Acute and/or high-risk problems: # Acute renal failure. Abdominal CT scan reveals no anatomic issue. There is no hydronephrosis after Watts catheter was placed. Most likely dehydration related to urinary infection and possibly gastroenteritis, less likely recurrent bladder outlet obstruction. On presentation: metabolic acidosis, with anion gap 32, serum bicarbonate 5, Potassium 5.3, uric acid 10.6. Calcium phosphorus product approximately 90. For further hemodialysis today. - We will continue aggressive hydration with sodium bicarbonate, until advised by nephrology - Follow daily renal panel - Renal adjustment of all medications - Hemodialysis per nephrology service # Urinary tract infection. Last infection in 03/2016 was a pansensitive Morganella morganii. Urine culture now positive for MRSA. One of 2 blood cultures from 10/14 is also positive for staph, sensitivity pending.. He received vancomycin on presentation in the emergency department - Infectious disease consult -C ontinue daptomycin - Duration antibiotics per ID # Severe Sepsis. SIRS criteria on admission include pulse 101, respiratory rate 24, WBC 16.4. Mean arterial pressure is 65. Focal infection is urinary. Organ system dysfunction is acute renal failure. Blood culture showing positive staph morphology. - Fluid resuscitation with sodium bicarbonate at 200 mL per hour - Careful intake and output measurements with Watts catheter - Monitor blood pressure # Nausea vomiting or anorexia. Possible viral gastroenteritis, but no evidence of diarrhea. Doubt active infection at this time. Current nausea may be related to uremia. Abdomen is clinically benign. - Antiemetics as needed - Follow GI function clinically # Type II diabetes mellitus. Split next basal bolus insulin with reasonable glycemic control at present. - 4 times a day capillary blood glucose - Glucose control goals: Random less than 180, fasting less than 140, none less than 70 - Insulin as needed, divided 50-50 long-acting and nutritional/correctional # Obstructive uropathy. CT scan revealing bladder wall thickening, also chronic left renal lesion consistent with neoplasm. - Continue Watts catheter present - Urology consult recommends outpatient follow-up with Dr. Nicholas Chronic stable problems: - Obesity - Depression - Anemia - current hemoglobin 9.0. Past baseline is approximately 8. No indication for transfusion at this time. VTE Prophylaxis: SCDs VTE Mechanical Devices: Intermittant Pneumatic CD Resuscitation Status: CPR: Attempt Resuscitation Time spent 35 minutes John Pickering MD Oct 16, 2016 13:23
--- NOTE | 2016-10-16 13:32 | PCM.PNMED ---
Subjective Date of Service Oct 16, 2016 Subjective HD x1 yesterday, (+) hypotensive episodes, poor blood flow. confused at times overnight. Exam Vital Signs Vital Sign - Last Date Time Temp Pulse Resp B/P Pulse Ox O2 Delivery O2 Flow Rate FiO2 10/16/16 12:39 36.4 92 22 92/55 99 Room Air 10/14/16 14:53 2.00 Intake and Output 10/15/16 10/15/16 10/16/16 Cumulative From/Thru 15:00 23:00 07:00 10/14/16 14:53 - 10/16/16 06:39 Intake Total 4140 ml 1715 ml 1880 ml 8746 ml Output Total 0 ml 1200 ml 750 ml 3350 ml Balance 4140 ml 515 ml 1130 ml 5396 ml Intake Oral 200 ml 175 ml 775 ml IV Total 3890 ml 1515 ml 1705 ml 7421 ml Packed Cells 250 ml 550 ml Output Urine Total 1200 ml 750 ml 3350 ml Ultrafiltrate 0 ml 0 ml # Bowel Movements 2 2 Exam General appearance: Chronically ill-looking, drowsy but arousable, confused at times HEENT: Mild pallor. No jaundice. No JVD. No lymphadenopathy. No thyroid enlargement. Dry mucosal membranes. Heart: Regular rhythm. Normal S1, S2. No murmurs, rubs, or gallops. Tachycardic. Lungs: Equal breath sounds bilaterally. No wheezing. No rhonchi. Abdomen: Soft, nontender, nondistended. No hepatosplenomegaly. Active bowel sounds. Extremity: No edema, cyanosis or clubbing. Skin: Multiple crusted papules and excoriations noted on upper extremity and lower extremities. : lees cath in place, gross hematuria. Lab and Diagnostics Result Diagram: 10/15/16 1005 10/16/16 0500 Microbiology UA: SG 1.020, protein 100 MG/DL, packed WBC, packed RBC, moderate bacteria Urine Culture pending Blood cultures pending X-Rays, CTs and MRIs PROCEDURE: CT ABDOMEN AND PELVIS WITHOUT CONTRAST ([id number]) IMPRESSION: 1. Decreased, mild bilateral hydronephrosis. Decreased bilateral ureteral dilatation. No urinary tract calcification. 2. Moderate diffuse urinary bladder wall thickening, suggestive of cystitis. Cystoscopy is recommended to exclude underlying neoplasm. 3. Presumed transitional cell carcinoma versus renal cell carcinoma within the left interpolar kidney is unchanged. 4. Bowel containing umbilical hernia without evidence of associated strangulation, nor obstruction. Dictated by: Maria Eugenia Ball M.D. on 10/14/2016 at 14:04 PROCEDURE: X-RAY CHEST ONE VIEW, PORTABLE ([id number]) IMPRESSION: No acute cardiopulmonary findings. Dictated by: Nathalia Ray M.D. on 10/14/2016 at 13:45 . Assessment & Plan 1. Severe renal insufficiency: Acute kidney injury on chronic kidney disease versus worsening chronic kidney disease and now reached end-stage renal disease. - Pt with intravascular volume depletion and sepsis. - Severe electrolyte derangements noted 2. Electrolyte disturbance including hyponatremia, hyperkalemia, anion gap metabolic acidosis and hyperphosphatemia. 3. History of obstructive uropathy status post cystoscopy and urethral dilatation. Now with gross hematuria. 4. Left renal mass. Rule out renal cell carcinoma and transitional cell carcinoma. 5. Hypotension secondary to intravascular volume depletion and sepsis. 6. Sepsis, complicated UTI. Plan: HD today for 3.5 hr. d/c amphojel add phoslo 1334 mg TID with meals. arrange for tunneled cath next week. VTE Prophylaxis: SCDs VTE Mechanical Devices: Intermittant Pneumatic CD Resuscitation Status: CPR: Attempt Resuscitation Edgar De La Rosa MD Oct 16, 2016 13:18
--- NOTE | 2016-10-16 18:00 | NUR ---
Freq liquid incont stools/ Pt states not able to control bowel movements/ frequent skin care & barrier cream/challenging to keep buttocks excoriation cleansed. Stool spec sent for C-Diff.
[2016-10-16 18:26] VITALS: BP 92/55; PULSE 80
[2016-10-16 19:32] LABS: Magnesium 1.3 mg/dL (1.6-2.6)
[2016-10-16] MEDS ORDERED: Calcium GLUCO 10% (Gm) 1 Gm/10 mL 50 mL Inj IV ONE (19:50)
[2016-10-16] MEDS ORDERED: Calcium GLUCO 10% (Gm) Inj 2 GM in 0.9% Sodium Chloride 100 ML IV ONE (19:55)
[2016-10-16 21:56] VITALS: BP 114/63; PULSE 82; RESP 22; O2SAT 99
--- NOTE | 2016-10-16 22:22 | NUR ---
Dialysis note: 3 1/2 hr. tx, Net UF 700. Right IJ cath was used with limbs switched A/V V/A. QB 250. UF turned off for 15 min r/t BP 87/45 HR 72. BP returned to baseline and UF turned back on with goal lowered to 1000. Pt slept off and on through tx. dresg changed with CHG and chloroprep, dwelled with Heparin 1000 and secured. Pt was calm throughout tx and was left in room stable, 108/63 HR 78. Please see DTR for complete record of VS.
[2016-10-16] MEDS: Insulin GLARgine 100 Unit/mL Syringe SUBQ SCH (23:11)
[2016-10-17] VITALS (11 sets, daily range): BP systolic 89–108; BP diastolic 45–66; PULSE 75–93; RESP 12–22; O2SAT 89–99
[2016-10-17] MEDS: Ondansetron 2 mg/mL 2 mL Inj IVPUSH PRN (01:31)
[2016-10-17] MEDS: Sodium Chloride LOK Flush 10 mL Syringe IVFLUSH SCH ×3 (01:31→16:01)
[2016-10-17 05:55] LABS: BASOPHILS % (AUTO) 0 % (0-3); EOSINOPHILS % (AUTO) 0.3 % (0-5); MONOCYTES % (AUTO) 11.7 % (4-12); Mean Corpuscular Hemoglobin 29.4 pg (27.0-35.0); Mean Corpuscular Volume 87.4 fL (81-100); Platelet Count 151 bil/L (150-400)
[2016-10-17 06:17] LABS: Phosphorus 4.6 mg/dL (2.5-4.9)
[2016-10-17] MEDS: ALUMINUM HYDROXIDE PO SCH ×2 (06:30→14:17)
--- NOTE | 2016-10-17 06:35 | NUR ---
Turns/Nausea PT refusing turns at times, pt had 1 BM this shift and was able to turn self to help with cleaning. Pt c/o nausea and retching was noted but no vomiting. PRN Zofran and Phenergan given. Pt was asking for food around 0230 stating that he was starving. Pt is NPO, no food given. VSS and Tele SR IVCD and PAC's.
[2016-10-17] MEDS: Insulin LISPRO 300 Unit/3 mL Inj SUBQ SCH ×4 (08:00→20:24)
--- NOTE | 2016-10-17 11:57 | NUR ---
Dialysis note: 3 1/2 hour tx. Limbs switched A/V and V/A. Net UF 0.0 r/t NS bolus during tx of 350 mL because of hypotension. 78/53 HR 78. Post tx 95/60 HR 79. Machine would alarm when pt talked and so we limited communication however this pt was cooperative during tx. Facial hair shaved so the dresg would adhere better and new CHG dressg applied; chloroprep used. Heparin 1000 u/mL dwell and catheter limbs secured. Please see DTR for complete record of VS. Pt stable, alert, and communicating effectively post tx. Addendum: 10/17/16 at 1223 by AMINAH ADRIAN RN medium amount of clotting noted in the drip chamber. Dr. Gildardo jane and citrasate will be used next tx.
--- NOTE | 2016-10-17 12:35 | NUR ---
XIAO: Verbal consent from patient
[2016-10-17] MEDS ORDERED: 0.9% Sodium Chloride 1,000 ML IV SCH (15:05)
[2016-10-17] MEDS ORDERED: Magnesium Sulf 2 Gm/50mL Water 2 GM in IV Premix 1 EACH IV ONE (15:05)
--- NOTE | 2016-10-17 15:18 | PCM.PNMED ---
Subjective Date of Service Oct 17, 2016 Subjective HD x3, feeling better, appetite somewhat improved. urine more clear today. poor blood flow during HD, 250 ml/min. Exam Vital Signs Vital Sign - Last Date Time Temp Pulse Resp B/P Pulse Ox O2 Delivery O2 Flow Rate FiO2 10/17/16 12:00 37.0 85 14 98/49 95 Room Air 10/14/16 14:53 2.00 Intake and Output 10/16/16 10/16/16 10/17/16 Cumulative From/Thru 15:00 23:00 07:00 10/14/16 14:53 - 10/17/16 06:53 Intake Total 1625 ml 470 ml 32680 ml Output Total 1400 ml 600 ml 5350 ml Balance 225 ml -130 ml 5491 ml Intake Oral 150 ml 200 ml 1125 ml IV Total 1475 ml 270 ml 9166 ml Packed Cells 550 ml Output Urine Total 700 ml 600 ml 4650 ml Emesis 0 ml 0 ml Ultrafiltrate 700 ml 700 ml # Bowel Movements 9 1 12 Exam General appearance: AAOx3, NAD, answered questions appropriately today. HEENT: Mild pallor. No jaundice. No JVD. No lymphadenopathy. No thyroid enlargement. Dry mucosal membranes. Heart: Regular rhythm. Normal S1, S2. No murmurs, rubs, or gallops. Tachycardic. Lungs: Equal breath sounds bilaterally. No wheezing. No rhonchi. Abdomen: Soft, nontender, nondistended. No hepatosplenomegaly. Active bowel sounds. Extremity: No edema, cyanosis or clubbing. Skin: Multiple crusted papules and excoriations noted on upper extremity and lower extremities. : lees cath in place, brownish urine. Lab and Diagnostics Result Diagram: 10/17/1652210/17/16522 Microbiology UA: SG 1.020, protein 100 MG/DL, packed WBC, packed RBC, moderate bacteria Urine Culture pending Blood cultures pending X-Rays, CTs and MRIs PROCEDURE: CT ABDOMEN AND PELVIS WITHOUT CONTRAST ([id number]) IMPRESSION: 1. Decreased, mild bilateral hydronephrosis. Decreased bilateral ureteral dilatation. No urinary tract calcification. 2. Moderate diffuse urinary bladder wall thickening, suggestive of cystitis. Cystoscopy is recommended to exclude underlying neoplasm. 3. Presumed transitional cell carcinoma versus renal cell carcinoma within the left interpolar kidney is unchanged. 4. Bowel containing umbilical hernia without evidence of associated strangulation, nor obstruction. Dictated by: Maria Eugenia Ball M.D. on 10/14/2016 at 14:04 PROCEDURE: X-RAY CHEST ONE VIEW, PORTABLE ([id number]) IMPRESSION: No acute cardiopulmonary findings. Dictated by: Nathalia Ray M.D. on 10/14/2016 at 13:45 . Assessment & Plan 1. Severe renal insufficiency: Acute kidney injury on chronic kidney disease versus worsening chronic kidney disease and now reached end-stage renal disease. - Pt with intravascular volume depletion and sepsis. - Severe electrolyte derangements improved after HD x3. 2. Electrolyte disturbance including hyponatremia, hyperkalemia, anion gap metabolic acidosis and hyperphosphatemia. 3. History of obstructive uropathy status post cystoscopy and urethral dilatation. s/p lees cath placement with gross hematuria, improved. 4. Hepatitis B infection, (+) HBs Ag, and HBcore Ab. negative for HBsAb 5. Hypotension secondary to intravascular volume depletion and sepsis. 6. Sepsis 7. (+) MRSA U/cx, Staph coag neg in blood culture 8. Anemia of CKD and acute blood loss s/p blood transfusion. 9. Left renal mass. Rule out renal cell carcinoma and transitional cell carcinoma. Plan: - repeat BMP in am. - will reassess if further HD required. - recheck iron panel and ferritin. - consider checking IgM/G HBcore, HBeAg/Ab and HBV DNA, will ask Dr. Lopez for more input. VTE Prophylaxis: SCDs VTE Mechanical Devices: Intermittant Pneumatic CD Resuscitation Status: CPR: Attempt Resuscitation Edgar De La Rosa MD Oct 17, 2016 15:18
--- NOTE | 2016-10-17 15:47 | PCM.PNMED ---
Subjective Date of Service Oct 17, 2016 Subjective 71-year-old male with history of obstructive uropathy, type II diabetes mellitus presents with acute renal failure and urinary tract infection with sepsis. Less nausea today. Feeling somewhat better overall. Appetite remains reduced. No abdomen or suprapubic pain. No dyspnea. Exam Vital Signs Vital Sign - Last Date Time Temp Pulse Resp B/P Pulse Ox O2 Delivery O2 Flow Rate FiO2 10/17/16 12:00 37.0 85 14 98/49 95 Room Air 10/14/16 14:53 2.00 Intake and Output 10/16/16 10/16/16 10/17/16 Cumulative From/Thru 15:00 23:00 07:00 10/14/16 14:53 - 10/17/16 06:53 Intake Total 1625 ml 470 ml 74077 ml Output Total 1400 ml 600 ml 5350 ml Balance 225 ml -130 ml 5491 ml Intake Oral 150 ml 200 ml 1125 ml IV Total 1475 ml 270 ml 9166 ml Packed Cells 550 ml Output Urine Total 700 ml 600 ml 4650 ml Emesis 0 ml 0 ml Ultrafiltrate 700 ml 700 ml # Bowel Movements 9 1 12 Exam General: Pale obese man in no acute distress HEENT: sclerae anicteric, oral mucosa moist Lungs: clear to auscultation, no rales Cardiac: S1S2, no murmur Abdomen: Protuberant abdomen. BS normal, non-tender. Watts present. No suprapubic tenderness. Extremities: No significant edema. Skin: Multiple small healed ulcerations on arms bilaterally;Chronic lower extremity stasis changes with dry ulceration. Neuro: A&O, cranial nerves appear symmetric, motor strength and coordination are grossly normal, IVs and Medications Medications Reviewed: Medications were reviewed in detail Lab and Diagnostics Result Diagram: 10/17/1652210/17/16522 Microbiology UA: SG 1.020, protein 100 MG/DL, packed WBC, packed RBC, moderate bacteria Urine Culture pending Blood cultures pending X-Rays, CTs and MRIs PROCEDURE: CT ABDOMEN AND PELVIS WITHOUT CONTRAST ([id number]) IMPRESSION: 1. Decreased, mild bilateral hydronephrosis. Decreased bilateral ureteral dilatation. No urinary tract calcification. 2. Moderate diffuse urinary bladder wall thickening, suggestive of cystitis. Cystoscopy is recommended to exclude underlying neoplasm. 3. Presumed transitional cell carcinoma versus renal cell carcinoma within the left interpolar kidney is unchanged. 4. Bowel containing umbilical hernia without evidence of associated strangulation, nor obstruction. Dictated by: Maria Eugenia Ball M.D. on 10/14/2016 at 14:04 PROCEDURE: X-RAY CHEST ONE VIEW, PORTABLE ([id number]) IMPRESSION: No acute cardiopulmonary findings. Dictated by: Nathalia Ray M.D. on 10/14/2016 at 13:45 . Assessment & Plan 71-year-old man with history of obstructive uropathy, diabetes and obesity presents with probable gastroenteritis syndrome resulting in dehydration and acute renal failure. Acute and/or high-risk problems: # Acute renal failure. Nonoliguric. Abdominal CT scan reveals no hydronephrosis. Most likely dehydration related to urinary infection, possibly gastroenteritis, less likely recurrent bladder outlet obstruction. On presentation: metabolic acidosis, with anion gap 32, serum bicarbonate 5, Potassium 5.3, uric acid 10.6. Calcium phosphorus product approximately 90. For further hemodialysis today. - Reduce IV hydration, encourage oral intake - Follow daily renal panel - Renal adjustment of all medications - Hemodialysis per nephrology service # Urinary tract infection. Last infection in 03/2016 was a pansensitive Morganella morganii. Urine culture now positive for MRSA. Curiously 1 of 2 blood cultures from 10/14 is also positive for coag-negative staph, sensitivity pending.. He received vancomycin on presentation in the emergency department - Infectious disease consult - Continue daptomycin - Duration antibiotics per ID - Repeat blood cultures if permanent hemodialysis access is to be placed # Severe Sepsis. SIRS criteria on admission include pulse 101, respiratory rate 24, WBC 16.4. Mean arterial pressure is 65. Focal infection is urinary. Organ system dysfunction is acute renal failure. Blood culture equivocal for staph bacteremia. Her pressure remains low normal the patient clinically improved within 48 hours after dialysis. Initially received resuscitation with sodium bicarbonate at 200 mL per hour - Continue intake and output measurements with Watts catheter - Monitor blood pressure - Reduce IV hydration, encourage oral intake # Hypocalcemia. This largely corrects to normal in light of hypoalbuminemia. In light of high phosphorus, and risk of ectopic calcification, the patient should not receive IV calcium unless experiencing tetany, seizure or muscle cramping. Currently on calcium carbonate 500 mg 3 times, calcium acetate 1.3 g 3 times a day, with calcitriol 0.25 mcg daily - Monitor but avoid supplementing calcium unless symptomatic - Continue current phosphate binder vitamin D and calcium # Nausea vomiting or anorexia. Possible viral gastroenteritis, but no evidence of diarrhea. Doubt active infection at this time. Current nausea may be related to uremia. Abdomen is clinically benign. Improving with correction of his uremia - Antiemetics as needed - Follow GI function clinically # Type II diabetes mellitus. Split next basal bolus insulin with reasonable glycemic control at present. - 4 times a day capillary blood glucose - Glucose control goals: Random less than 180, fasting less than 140, none less than 70 - Insulin as needed, divided 50-50 long-acting and nutritional/correctional # Obstructive uropathy. CT scan revealing bladder wall thickening, also chronic left renal lesion consistent with neoplasm. - Continue Watts catheter present - Urology consult recommends outpatient follow-up with Dr. Nicholas Pain Evaluation: Adequate Pain Control VTE Prophylaxis: SCDs VTE Mechanical Devices: Intermittant Pneumatic CD Resuscitation Status: CPR: Attempt Resuscitation Time spent 35 minutes John Pickering MD Oct 17, 2016 15:47
--- NOTE | 2016-10-17 19:26 | NUR ---
BM/turns/medication refusal Pt had x3 fairly loose, moderate BM today. Cleaned up and put calmoseptine on backside as well as emerald area and pannus folds. Put in wound care consult for wounds on buttocks/leg. Pt on CCU YURY bed. Pt refusing most turns as well as some medications intermittently. BP has been low because of dialysis, but MAP has been greater than 60-65. Frequent rounding continues.
[2016-10-17] MEDS: Insulin GLARgine 100 Unit/mL Syringe SUBQ SCH (20:24)
[2016-10-18] VITALS (9 sets, daily range): BP systolic 84–98; BP diastolic 40–50; PULSE 76–97; RESP 16–22; O2SAT 95–99
[2016-10-18] MEDS: ALUMINUM HYDROXIDE PO SCH ×4 (00:02→22:25)
[2016-10-18] MEDS: Sodium Chloride LOK Flush 10 mL Syringe IVFLUSH SCH ×4 (00:02→22:34)
[2016-10-18 05:45] LABS: BASOPHILS % (AUTO) 0.1 % (0-3); EOSINOPHILS % (AUTO) 1.6 % (0-5); MONOCYTES % (AUTO) 15.2 % (4-12); Mean Corpuscular Hemoglobin 29.5 pg (27.0-35.0); Mean Corpuscular Volume 91.4 fL (81-100); Platelet Count 139 bil/L (150-400)
--- NOTE | 2016-10-18 06:51 | NUR ---
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 Patient has multiple brief changes due to being incontinent of BM. Plan for wound care consult today. Pt already on YURY bed. BP borderline, MAP > 60.
[2016-10-18] MEDS: Insulin LISPRO 300 Unit/3 mL Inj SUBQ SCH ×4 (08:00→22:00)
--- NOTE | 2016-10-18 09:09 | NUR ---
Social Work Initial Assessment Data & Assessment: EMR Reviewed. See Initial Assessment. Sheet Turner met with patient at bedside to complete initial assessment, discuss discharge planning, and SW role reviewed. Patient alert and oriented x3. Patient is a 71 y/o male that admitted for sepsis and renal failure. Patient has a re-admit score of three/high. Patient confirmed that his PCP is Dr. Wade Clark. Patient primary insurance is Medicare and secondary is for life. Patient lives in a single level house with a olive picker, Gill [phone]. Patient has home health, but he could not recall the name. SW called patient's caregiver and she stated that she will call SW with the name. Patient does not have any SNF history. Patient has VA benefits and no LTC insurance. Patient plans to return home with caregiver and HH via POV. SW will give HH access once the name is obtained. Patient does not have a DPOA, but SW provided patient with paperwork. Patient states that he wants Mic (friend) [phone] to be his DPOA and Grant Sevilla(friend) and first alternate [phone]. Patient will fill out DPOA completely once he has witness. Patient stated that he does not want his brother making any decisions for him. Patient likely to disharge home with HH and olive picker, Gill. SW will continue to follow. Plan: Patient likely to discharge home with olive picker and HH. SW will give HH access once the name is obtained. SW will continue to follow. Maritza Vasquez LMSW, JEROMY Addendum: 10/18/16 at 0925 by MARITZA DUARTE Amended: Links added. Addendum: 10/18/16 at 0926 by MARITZA DUARTE Late entry from 10/15/16
[2016-10-18] MEDS: DAPTOMYCIN IV SCH (09:28)
[2016-10-18] MEDS: SODIUM CHLORIDE 0.9% IV SCH (09:28)
--- NOTE | 2016-10-18 10:31 | PROG NOTE ---
[address] [address] PROGRESS NOTE PATIENT: SUMAYA VASQUEZ : 1945 MR#: [id number] ADMIT: 10/14/2016 JOB ID: [id number] DATE: 10/18/2016 REASON FOR FOLLOWUP: Complex MRSA urinary tract infection. INTERVAL HISTORY: Recall this is a patient we saw on Tuesday, the , who had Staph in his blood as well as in his urine with an obstructive uropathy and renal failure. We were concerned that he might have Staph aureus bacteremia as the preliminary read from micro was that the urine was probably beta hemolytic Staph aureus, and we had no ID from the blood. Over the weekend, it has become clear that the Staph in the blood is a coag-negative Staph, and that in the urine is of a MRSA. He has continued to improve over the weekend on daptomycin therapy which was initiated on Tuesday, the . Over the weekend, the patient says he has been feeling better. His shortness of breath has improved somewhat and he has had no significant fevers, chills or cough. He still has a Watts catheter, is still producing some urine. Recall that on Tuesday, his urine basically was the color and consistency of thick [place] grape juice. It has now thinned out quite a bit and is taking on a more normal color. PHYSICAL EXAMINATION: Reveals an afebrile, chronically ill-appearing gentleman. Temp 36.7, pulse 76, respiratory rate 17, blood pressure is low at 88/50, but he is in no acute distress. He is saturating 97% on room air. Oral cavity without change. He has a temporary dialysis catheter in the right IJ. Lungs are notable for some crackles at the bases. Abdomen is obese, soft, and nontender. Watts catheter is present. LABORATORIES: Include white count 10,000. Basically normal diff. Platelets a little low at 139. Creatinine 5, potassium is down to 3.8. LFTs are normal. Of interest, the patient's hepatitis B surface antigen and hepatitis B total core are positive, which shows that he has some degree of active hepatitis B, though how severe this is, is unclear given his normal LFTs. In talking to the patient, he has no history whatsoever of hepatitis B and denies the usual risk factors. Micro studies include the urine which grew MRSA. This is fairly susceptible, which could be treated with Bactrim, doxycycline or linezolid, as well as presumably daptomycin. The blood grew coag-negative staph, and that was in only one of three bottles, which I would assume to be a contaminant. IMPRESSION: This is a complex case of a gentleman with obstructive uropathy which has led to renal failure. This is in association with a methicillin-resistant Staphylococcus aureus urinary tract infection, but fortunately he is not bacteremic. RECOMMENDATIONS: 1. I would continue with daptomycin at least for the next day or two, but will eventually transition the patient to an oral agent, which will likely be linezolid, to finish a complete course of therapy. 2. The reason to continue with daptomycin is it is a little bit opening machine cleaner drug in terms of its affect on platelets and metabolic acidosis issues, but I think that the linezolid will be the agent we will use when it is for time for discharge. 3. Will continue with renally adjusted daptomycin at this time.
--- NOTE | 2016-10-18 13:40 | PCM.PNMED ---
Subjective Date of Service Oct 18, 2016 Subjective The patient is well-known to me from previous outpatient evaluations. He was admitted for sepsis and possible acute on chronic kidney injury versus evolution of his chronic kidney disease. He has failed conservative measures and a temporary dialysis catheter was placed and will be his third dialysis treatment. He denies any chest pain, shortness of breath, cough or wheezing. His BUN and creatinine today are 47 and 4.93 Exam Vital Signs Vital Sign - Last Date Time Temp Pulse Resp B/P Pulse Ox O2 Delivery O2 Flow Rate FiO2 10/18/16 11:23 37.0 86 20 93/49 99 Room Air 10/14/16 14:53 2.00 Intake and Output 10/17/16 10/17/16 10/18/16 Cumulative From/Thru 15:00 23:00 07:00 10/14/16 14:53 - 10/18/16 06:11 Intake Total 370 ml 400 ml 77529 ml Output Total 0 ml 200 ml 250 ml 5800 ml Balance 0 ml 170 ml 150 ml 5811 ml Intake Oral 320 ml 400 ml 1845 ml IV Total 50 ml 9216 ml Packed Cells 550 ml Output Urine Total 200 ml 250 ml 5100 ml Emesis 0 ml Ultrafiltrate 0 ml 700 ml # Bowel Movements 3 3 18 Exam Lungs were clear to auscultation heart was regular with a soft systolic murmur. Abdomen soft without any tenderness or rebound guarding masses, there was no hepatosplenomegaly noted. Extremities do not show any evidence of clubbing cyanosis or edema. Lab and Diagnostics Result Diagram: 10/18/167 10/18/16 0457 Microbiology UA: SG 1.020, protein 100 MG/DL, packed WBC, packed RBC, moderate bacteria Urine Culture pending Blood cultures pending X-Rays, CTs and MRIs PROCEDURE: CT ABDOMEN AND PELVIS WITHOUT CONTRAST ([id number]) IMPRESSION: 1. Decreased, mild bilateral hydronephrosis. Decreased bilateral ureteral dilatation. No urinary tract calcification. 2. Moderate diffuse urinary bladder wall thickening, suggestive of cystitis. Cystoscopy is recommended to exclude underlying neoplasm. 3. Presumed transitional cell carcinoma versus renal cell carcinoma within the left interpolar kidney is unchanged. 4. Bowel containing umbilical hernia without evidence of associated strangulation, nor obstruction. Dictated by: Maria Eugenia Ball M.D. on 10/14/2016 at 14:04 PROCEDURE: X-RAY CHEST ONE VIEW, PORTABLE ([id number]) IMPRESSION: No acute cardiopulmonary findings. Dictated by: Nathalia Ray M.D. on 10/14/2016 at 13:45 . Assessment & Plan Impression #1 acute on chronic kidney injury versus end-stage renal disease number to diabetic nephropathy #3 hypertension with hypertensive heart disease number for obstructive uropathy Recommendations #1 patient is dialyzed for his third dialysis treatment today. He is to be dialyzed for 3-1/2 hours on a 2K bath approximately 1-2 L will be removed. VTE Prophylaxis: SCDs VTE Mechanical Devices: Intermittant Pneumatic CD Resuscitation Status: CPR: Attempt Resuscitation Tyler Santos DO Oct 18, 2016 13:40
--- NOTE | 2016-10-18 14:57 | NUR ---
NUTRITION ASSESSMENT Assess: 71 YO M admitted with sepsis, renal failure. Pt received temporary dialysis catheter and is currently requiring dialysis. PO intake was initially poor but now appears to be improving. PMHX: Obstructive uropathy w/ urinary infection, CKD, Left renal mass, type 2 DM, obesity. DIET: Renal. PO intake 25-100%. LABS: BUN 47, Cr 4.93, Glu 132 MEDICATIONS: Reviewed. Insulin. GI: 3 BM 10/18. SKIN: Wound eval pending. WEIGHT: 137.4 kg, BMI 41.1 kg/m2, Admit wt: 133.5 kg, IBW: 80.9 kg, Adj. BW 95.0 kg. ESTIMATED NEEDS: BMI/DIALYSIS Calories: 5763-4042 kcal/day (30-35 kcal/kg Adj. BW) Protein: 114-190 g/day (1.2-2.0 g/kg Adj. BW) NUTRITION DIAGNOSIS: 1) Increased nutrient needs related to increased demand for nutrients as evidenced by GIGI on CKD, need for dialysis. INTERVENTION: 1) Will add Nepro supplement to encourage adequate nutrition while on dialysis. MONITOR/EVALUATE: PO intake, diet tolerance, labs, GI/nutrition status. Follow per moderate nutrition risk guidelines.
--- NOTE | 2016-10-18 15:42 | NUR ---
Wound Care [facility] Patient seen for wound care evaluation. Patient found with multiple areas of ulceration, none pressure related. Patient with excoriated area to right pannus fold due to moisture and 2cmL x 0.7cmW x <0.1cm D red open area to suprapubic fold. Cleaned well with soap and water, 3in1 wipes, and applied calmoseptine. Patient with multiple full-thickness open areas to buttocks bilaterally, likely due to incontinence. Patient has had multiple liquid BMs since admit. Patient reports taking anti-diarrheal approx every 2 to 3 days at home. Patient also reports long history of wounds opening up on buttocks, then healing. Patient noted with multiple areas of scarring to support reports of long history of wounds. Patient reports often wearing blue jeans will exacerbate wounds and cause them to open. Patient states caregiver applies barrier cream, and he turns frequently to resolve open areas. Area of involvement to bilateral buttocks measures 22.5cmL x 24.5cm W x 0.1cmD with multiple small open areas throughout. Wounds punched out looking with red periwound and red granulating or pale red wound beds. No bleeding or drainage identified, however patient with large liquid BM incontinence episode immediately prior to CWS arrival. Patient cleaned well with soap and water, then 3 in1 wipes, and applied calmoseptine. Unable to apply dressing due to significant and frequent bowel incontinence. Nursing staff to clean patient frequently and assist to turn side to side, avoiding supine position. Clean with 3in1 wipes and apply extra calmoseptine as needed. Wound care to follow as needed.
--- NOTE | 2016-10-18 17:44 | PCM.PNMED ---
Subjective Date of Service Oct 18, 2016 Subjective 71-year-old male with history of obstructive uropathy, type II diabetes mellitus presents with acute renal failure and urinary tract infection with sepsis. Less nausea today. Continues to feel better. Appetite remains reduced. No abdomen or suprapubic pain. No dyspnea. Exam Vital Signs Vital Sign - Last Date Time Temp Pulse Resp B/P Pulse Ox O2 Delivery O2 Flow Rate FiO2 10/18/16 16:23 37.0 84 22 92/42 99 Nasal Cannula 2.00 Intake and Output 10/17/16 10/17/16 10/18/16 Cumulative From/Thru 15:00 23:00 07:00 10/14/16 14:53 - 10/18/16 06:11 Intake Total 370 ml 400 ml 83630 ml Output Total 0 ml 200 ml 250 ml 5800 ml Balance 0 ml 170 ml 150 ml 5811 ml Intake Oral 320 ml 400 ml 1845 ml IV Total 50 ml 9216 ml Packed Cells 550 ml Output Urine Total 200 ml 250 ml 5100 ml Emesis 0 ml Ultrafiltrate 0 ml 700 ml # Bowel Movements 3 3 18 Exam General: Pale obese man in no acute distress, alert and talkative HEENT: sclerae anicteric, oral mucosa moist Lungs: clear to auscultation, no rales Cardiac: S1S2, no murmur Abdomen: Protuberant abdomen. BS normal, non-tender. Watts present. No suprapubic tenderness. Extremities: 1+ significant edema. Skin: Multiple small healed ulcerations on arms bilaterally;Chronic lower extremity stasis changes with dry ulceration. Neuro: A&O, cranial nerves appear symmetric, motor strength and coordination are grossly normal, IVs and Medications Medications Reviewed: Medications were reviewed in detail Lab and Diagnostics Result Diagram: 10/18/167 10/18/16456 Microbiology UA: SG 1.020, protein 100 MG/DL, packed WBC, packed RBC, moderate bacteria Urine Culture pending Blood cultures pending X-Rays, CTs and MRIs PROCEDURE: CT ABDOMEN AND PELVIS WITHOUT CONTRAST ([id number]) IMPRESSION: 1. Decreased, mild bilateral hydronephrosis. Decreased bilateral ureteral dilatation. No urinary tract calcification. 2. Moderate diffuse urinary bladder wall thickening, suggestive of cystitis. Cystoscopy is recommended to exclude underlying neoplasm. 3. Presumed transitional cell carcinoma versus renal cell carcinoma within the left interpolar kidney is unchanged. 4. Bowel containing umbilical hernia without evidence of associated strangulation, nor obstruction. Dictated by: Maria Eugenia Ball M.D. on 10/14/2016 at 14:04 PROCEDURE: X-RAY CHEST ONE VIEW, PORTABLE ([id number]) IMPRESSION: No acute cardiopulmonary findings. Dictated by: Nathalia Ray M.D. on 10/14/2016 at 13:45 . Assessment & Plan 71-year-old man with history of obstructive uropathy, diabetes and obesity presents with probable gastroenteritis syndrome resulting in dehydration and acute renal failure. Acute and/or high-risk problems: # Acute renal failure. Nonoliguric. Abdominal CT scan reveals no hydronephrosis. Most likely dehydration related to urinary infection, possibly gastroenteritis, less likely recurrent bladder outlet obstruction. On presentation: metabolic acidosis, with anion gap 32, serum bicarbonate 5, Potassium 5.3, uric acid 10.6. Calcium phosphorus product approximately 90. For further hemodialysis today. - Discontinue IV hydration, encourage oral intake - Follow daily renal panel - Renal adjustment of all medications - Hemodialysis per nephrology service # Urinary tract infection. Last infection in 03/2016 was a pansensitive Morganella morganii. Urine culture now positive for MRSA. Curiously 1 of 2 blood cultures from 10/14 is also positive for coag-negative staph, judged to be a nonsignificant contaminant he received vancomycin on presentation in the emergency department - Infectious disease consult - Continue daptomycin - Duration antibiotics per ID - Repeat blood cultures if permanent hemodialysis access is to be placed # Severe Sepsis. SIRS criteria on admission include pulse 101, respiratory rate 24, WBC 16.4. Mean arterial pressure is 65. Focal infection is urinary. Organ system dysfunction is acute renal failure. Blood culture equivocal for staph bacteremia. Her pressure remains low normal the patient clinically improved within 48 hours after dialysis. Initially received resuscitation with sodium bicarbonate at 200 mL per hour - Continue intake and output measurements with Watts catheter - Monitor blood pressure -Continue IV hydration, encourage oral intake # Hypocalcemia. This largely corrects to normal in light of hypoalbuminemia. In light of high phosphorus, and risk of ectopic calcification, the patient should not receive IV calcium unless experiencing tetany, seizure or muscle cramping. Currently on calcium carbonate 500 mg 3 times, calcium acetate 1.3 g 3 times a day, with calcitriol 0.25 mcg daily - Monitor but avoid supplementing calcium unless symptomatic - Continue current phosphate binder vitamin D and calcium # Nausea vomiting or anorexia. Possible viral gastroenteritis, but no evidence of diarrhea. Doubt active infection at this time. Current nausea may be related to uremia. Abdomen is clinically benign. Improving with correction of his uremia - Antiemetics as needed - Follow GI function clinically # Type II diabetes mellitus. Split next basal bolus insulin with reasonable glycemic control at present. - 4 times a day capillary blood glucose - Glucose control goals: Random less than 180, fasting less than 140, none less than 70 - Insulin as needed, divided 50-50 long-acting and nutritional/correctional # Obstructive uropathy. CT scan revealing bladder wall thickening, also chronic left renal lesion consistent with neoplasm. - Continue Watts catheter present - Urology consult recommends outpatient follow-up with Dr. Nicholas . VTE Prophylaxis: SCDs VTE Mechanical Devices: Intermittant Pneumatic CD Resuscitation Status: CPR: Attempt Resuscitation Time spent 35 minutes John Pickering MD Oct 18, 2016 17:44
--- NOTE | 2016-10-18 18:00 | NUR ---
Dialysis note: 3 1/2 hrs tx. 500 ml net UF. Right IJ catheter, dsg dry and intact. Pls see DTR for VS details. Qb 300 with catheter limbs reversed A-V V-A due to poor catheter function. No heparin given, Citrasate used instead. O2 @ 2L via NC on. Tolerated tx, slept at intervals. Catheter flushed, heparin dwelled and secured. Report given to Linda Bartlett RN.
--- NOTE | 2016-10-18 19:32 | NUR ---
Dialysis/loose stool pt tolerated in room dialysis, Per concrete tile machine operator 500cc taken off. Pt had one large loose BM in the morning, none since then. Report given to oncoming RN.
[2016-10-18] MEDS: Insulin GLARgine 100 Unit/mL Syringe SUBQ SCH (22:32)
[2016-10-19] VITALS (9 sets, daily range): BP systolic 86–107; BP diastolic 45–54; PULSE 56–89; RESP 18–22; O2SAT 93–97
--- NOTE | 2016-10-19 05:11 | NUR ---
Urine/skin Incontinent of large watery stool. Unaware that he was incontinent, although c/o some discomfort due to skin maceration to buttocks. Skin care given frequently per wound care orders. Encouraged to turn side to side frequently, as well. Denies pain.
[2016-10-19 05:42] LABS: Phosphorus 2.6 mg/dL (2.5-4.9)
[2016-10-19] MEDS: ALUMINUM HYDROXIDE PO SCH (06:37)
[2016-10-19] MEDS: Insulin LISPRO 300 Unit/3 mL Inj SUBQ SCH ×4 (07:44→21:03)
[2016-10-19] MEDS: Sodium Chloride LOK Flush 10 mL Syringe IVFLUSH SCH ×3 (08:02→21:03)
--- NOTE | 2016-10-19 10:25 | PROG NOTE ---
[address] [address] PROGRESS NOTE PATIENT: SUMAYA VASQUEZ : 1945 MR#: [id number] ADMIT: 10/14/2016 JOB ID: [id number] DATE: 10/19/2016 REASON FOR FOLLOWUP: Complicated MRSA urinary tract infection in a patient with acute renal failure and obstructive uropathy. INTERVAL HISTORY: Overnight, the patient reports he has felt reasonably well. He has no fevers or chills. No significant shortness of breath. He continues to be dialyzed on an as needed basis for his acute renal failure. He still has a Watts catheter. It is producing moderate amounts of urine. PHYSICAL EXAMINATION: Reveals an afebrile gentleman. Temperature 36.8, pulse 77, respiratory rate 18, blood pressure 91/48. He is saturating well on room air. Examination of the oral cavity is negative. Lungs are relatively clear. A few crackles at the bases. Cardiac tones regular rate and rhythm without rub. Abdomen is soft, nontender, obese. No change. He still has a Watts catheter. The urine no longer is purple as originally was, but still has an unusual purplish hue to it. LABORATORIES: Include a white count of 10,300, which is relatively stable, 15% monos, platelets slipping a bit, now 139. Creatinine 4.07. HIV negative. Hep B viral load is pending. Hep B E antigen also pending. Recall that his hepatitis B surface antigen was positive. Blood grew coag-negative Staph in one bottle. Urine grew heavy concentration of MRSA which we are treating with daptomycin. A stool for C. diff was negative. No recent chest x-ray. IMPRESSION: This is a complex case of a gentleman with obstructive uropathy, renal failure and methicillin-resistant Staphylococcus aureus urinary tract infection. He is not bacteremic and the coag-negative Staph in his blood is almost certainly a contaminant. RECOMMENDATIONS: 1. Will continue with q.48 h. dosing of daptomycin as long as he is here in the hospital. I had considered a change, but most of the reasonable alternatives have some problem. Vancomycin may exacerbate his renal function and we are hoping that will improve. Trimethoprim sulfamethoxazole is difficult to use in renal failure. Linezolid would be a good choice here, but his platelets have started to slip even before the initiation of linezolid, and there is some data in the literature that people with pre-existing thrombocytopenia are even more likely to have problems when given linezolid. At this point, I think our simplest course is to continue with daptomycin. 2. Once the patient gets closer to discharge, we may consider finishing with a short course of linezolid or doxycycline, but for now, let us keep going with daptomycin. 3. I have asked the lab to do a daptomycin susceptibility on the MRSA isolated from the urine October 14.
--- NOTE | 2016-10-19 12:27 | PCM.PNMED ---
Subjective Date of Service Oct 19, 2016 Subjective Patient is about the same as compared to yesterday. He has not had much in the way of urine output and his blood pressure still remained between the 80s and low 90s. He denies any chest pain, shortness of breath, nausea, vomiting or diarrhea. His creatinine today is 4.07. Exam Vital Signs Vital Sign - Last Date Time Temp Pulse Resp B/P Pulse Ox O2 Delivery O2 Flow Rate FiO2 10/19/16 11:16 36.8 59 22 86/47 93 Room Air 10/18/16 16:23 2.00 Intake and Output 10/18/16 10/18/16 10/19/16 Cumulative From/Thru 15:00 23:00 07:00 10/14/16 14:53 - 10/19/16 06:22 Intake Total 724 ml 400 ml 76936 ml Output Total 500 ml 250 ml 200 ml 6750 ml Balance -500 ml 474 ml 200 ml 5985 ml Intake Oral 674 ml 400 ml 2919 ml IV Total 50 ml 9266 ml Packed Cells 550 ml Output Urine Total 250 ml 200 ml 5550 ml Emesis 0 ml Ultrafiltrate 500 ml 1200 ml # Bowel Movements 1 0 19 Exam HEENT examination is remarkable for pale sclera. Neck is supple without adenopathy thyromegaly. Venous distention. Lungs are clear to auscultation. Heart was regular with mechanical soft systolic murmur. Abdomen soft without tenderness rebound guarding masses or hepatosplenomegaly. Extremities show some trivial distal lower extremity edema. Lab and Diagnostics Result Diagram: 10/18/16 0457 10/19/16 0425 Microbiology UA: SG 1.020, protein 100 MG/DL, packed WBC, packed RBC, moderate bacteria Urine Culture pending Blood cultures pending X-Rays, CTs and MRIs PROCEDURE: CT ABDOMEN AND PELVIS WITHOUT CONTRAST ([id number]) IMPRESSION: 1. Decreased, mild bilateral hydronephrosis. Decreased bilateral ureteral dilatation. No urinary tract calcification. 2. Moderate diffuse urinary bladder wall thickening, suggestive of cystitis. Cystoscopy is recommended to exclude underlying neoplasm. 3. Presumed transitional cell carcinoma versus renal cell carcinoma within the left interpolar kidney is unchanged. 4. Bowel containing umbilical hernia without evidence of associated strangulation, nor obstruction. Dictated by: Maria Eugenia Ball M.D. on 10/14/2016 at 14:04 PROCEDURE: X-RAY CHEST ONE VIEW, PORTABLE ([id number]) IMPRESSION: No acute cardiopulmonary findings. Dictated by: Nathalia Ray M.D. on 10/14/2016 at 13:45 . Assessment & Plan Impression #1 acute on chronic kidney injury versus end-stage renal disease #2 obstructive uropathy #3 hypertension with hypertensive heart disease and hypertensive nephrosclerosis #4 anemia which appears to be multifactorial. Recommendations #1 I will make arrangements for his dialysis tomorrow and continue to follow his lab and intake and output. VTE Prophylaxis: SCDs VTE Mechanical Devices: Intermittant Pneumatic CD Resuscitation Status: CPR: Attempt Resuscitation Tyler Santos DO Oct 19, 2016 12:27
--- NOTE | 2016-10-19 18:20 | NUR ---
Hypotension/BM pt Bp at 1115 was 86/47, pt denies dizziness with assessment stating feeling "fine". Upon reassessment at 1319 BP up to 96/54. Pt was incontinent of loose stool this am x2. Will report to oncoming RN.
--- NOTE | 2016-10-19 18:59 | PCM.PNMED ---
Subjective Date of Service Oct 19, 2016 Subjective 71-year-old male with history of obstructive uropathy, type II diabetes mellitus presents with acute renal failure and urinary tract infection with sepsis. Nausea is resolved. Appetite improving. No abdomen or suprapubic pain. No dyspnea. Exam Vital Signs Vital Sign - Last Date Time Temp Pulse Resp B/P Pulse Ox O2 Delivery O2 Flow Rate FiO2 10/19/16 17:06 88 10/19/16 15:54 36.8 18 91/49 95 Room Air 10/18/16 16:23 2.00 Intake and Output 10/18/16 10/18/16 10/19/16 Cumulative From/Thru 15:00 23:00 07:00 10/14/16 14:53 - 10/19/16 06:22 Intake Total 724 ml 400 ml 54375 ml Output Total 500 ml 250 ml 200 ml 6750 ml Balance -500 ml 474 ml 200 ml 5985 ml Intake Oral 674 ml 400 ml 2919 ml IV Total 50 ml 9266 ml Packed Cells 550 ml Output Urine Total 250 ml 200 ml 5550 ml Emesis 0 ml Ultrafiltrate 500 ml 1200 ml # Bowel Movements 1 0 19 Exam eneral: Pale obese man in no acute distress, alert and talkative HEENT: sclerae anicteric, oral mucosa moist Lungs: clear to auscultation, no rales Cardiac: S1S2, no murmur Abdomen: Protuberant abdomen. BS normal, non-tender. No suprapubic tenderness. Extremities: 1+ significant edema. Skin: Multiple small healed ulcerations on arms bilaterally;Chronic lower extremity stasis changes with dry ulceration. Neuro: A&O, cranial nerves appear symmetric, motor strength and coordination are grossly normal, IVs and Medications Medications Reviewed: Medications were reviewed in detail Lab and Diagnostics Result Diagram: 10/18/16 0457 10/19/16 0425 Microbiology UA: SG 1.020, protein 100 MG/DL, packed WBC, packed RBC, moderate bacteria Urine Culture pending Blood cultures pending X-Rays, CTs and MRIs PROCEDURE: CT ABDOMEN AND PELVIS WITHOUT CONTRAST ([id number]) IMPRESSION: 1. Decreased, mild bilateral hydronephrosis. Decreased bilateral ureteral dilatation. No urinary tract calcification. 2. Moderate diffuse urinary bladder wall thickening, suggestive of cystitis. Cystoscopy is recommended to exclude underlying neoplasm. 3. Presumed transitional cell carcinoma versus renal cell carcinoma within the left interpolar kidney is unchanged. 4. Bowel containing umbilical hernia without evidence of associated strangulation, nor obstruction. Dictated by: Maria Eugenia Ball M.D. on 10/14/2016 at 14:04 PROCEDURE: X-RAY CHEST ONE VIEW, PORTABLE ([id number]) IMPRESSION: No acute cardiopulmonary findings. Dictated by: Nathalia Ray M.D. on 10/14/2016 at 13:45 . Assessment & Plan 71-year-old man with history of obstructive uropathy, diabetes and obesity presents with probable gastroenteritis syndrome resulting in dehydration and acute renal failure. Acute and/or high-risk problems: # Acute renal failure. Nonoliguric. Abdominal CT scan reveals no hydronephrosis. Most likely dehydration related to urinary infection, possibly gastroenteritis, less likely recurrent bladder outlet obstruction. On presentation: metabolic acidosis, with anion gap 32, serum bicarbonate 5, Potassium 5.3, uric acid 10.6. Calcium phosphorus product approximately 90. For further hemodialysis today. - Follow daily BMP - Renal adjustment of all medications - Hemodialysis per nephrology service # Urinary tract infection. Last infection in 03/2016 was a pansensitive Morganella morganii. Urine culture now positive for MRSA. Curiously 1 of 2 blood cultures from 10/14 is also positive for coag-negative staph, judged to be a nonsignificant contaminant he received vancomycin on presentation in the emergency department - Continue daptomycin - Duration antibiotics per ID consult # Severe Sepsis. SIRS criteria on admission include pulse 101, respiratory rate 24, WBC 16.4. Mean arterial pressure is 65. Focal infection is urinary. Organ system dysfunction is acute renal failure. Blood culture equivocal for staph bacteremia. Her pressure remains low normal the patient clinically improved within 48 hours after dialysis. Initially received resuscitation with sodium bicarbonate at 200 mL per hour - Resolved # Hypocalcemia. This largely corrects to normal in light of hypoalbuminemia. In light of high phosphorus, and risk of ectopic calcification, the patient should not receive IV calcium unless experiencing tetany, seizure or muscle cramping. Currently on calcium carbonate 500 mg 3 times, calcium acetate 1.3 g 3 times a day, with calcitriol 0.25 mcg daily - Monitor, but avoid supplementing IV calcium unless symptomatic - Continue current phosphate binder vitamin D and calcium # Nausea vomiting or anorexia. Possible viral gastroenteritis, but no evidence of diarrhea. Doubt active infection at this time. Current nausea may be related to uremia. Abdomen is clinically benign. Improving with correction of his uremia - Antiemetics as needed - Follow GI function clinically # Type II diabetes mellitus. Split next basal bolus insulin with reasonable glycemic control at present. - 4 times a day capillary blood glucose - Glucose control goals: Random less than 180, fasting less than 140, none less than 70 - Insulin as needed, divided 50-50 long-acting and nutritional/correctional # Obstructive uropathy. CT scan revealing bladder wall thickening, also chronic left renal lesion consistent with neoplasm. - Continue Watts catheter present - Urology consult recommends outpatient follow-up with Dr. Nicholas VTE Prophylaxis: SCDs VTE Mechanical Devices: Intermittant Pneumatic CD Resuscitation Status: CPR: Attempt Resuscitation Time spent 25 minutes John Pikcering MD Oct 19, 2016 18:59
[2016-10-19] MEDS: Insulin GLARgine 100 Unit/mL Syringe SUBQ SCH (21:03)
[2016-10-20] VITALS (9 sets, daily range): BP systolic 87–97; BP diastolic 47–55; PULSE 59–85; RESP 16–18; O2SAT 94–98
[2016-10-20 04:48] LABS: Mean Corpuscular Hemoglobin 29.2 pg (27.0-35.0); Mean Corpuscular Volume 93.1 fL (81-100)
[2016-10-20 05:00] LABS: Phosphorus 3.6 mg/dL (2.5-4.9)
--- NOTE | 2016-10-20 05:01 | NUR ---
Skin Care Pt resting throughout shift, refused turns x3 but independent in bed mobility; lying on R side at present. Pillows applied to heels and L side. Buttock wounds healing to assessment, no ongoing drainage. Continuous rotation therapy initiated on bed, pt requested it be turned off. Pt denies dyspnea, pain, or nausea. VSS. Tele SR 80s with PVCs.
[2016-10-20] MEDS: Insulin LISPRO 300 Unit/3 mL Inj SUBQ SCH ×5 (08:00→21:21)
[2016-10-20] MEDS ORDERED: 0.9% Sodium Chloride 250 ML IV PRN (08:05)
[2016-10-20] MEDS: Sodium Chloride LOK Flush 10 mL Syringe IVFLUSH SCH ×2 (09:08→15:51)
[2016-10-20] MEDS: SODIUM CHLORIDE 0.9% IV SCH (09:08)
[2016-10-20] MEDS: DAPTOMYCIN IV SCH (09:08)
[2016-10-20] MEDS: 0.9% Sodium Chloride 250 ML IV PRN (09:08)
--- NOTE | 2016-10-20 10:08 | NUR ---
To [facility] [place] [place] Patient arrived to [facility] [place] [place] in hospital bed. Isolation continues. Report received from Elbert Franco. Patient denies complaints. Plan of care discussed with patient , aware of current plan for hemodialysis. supervisor drying at bedside.
--- NOTE | 2016-10-20 11:15 | PROG NOTE ---
[address] [address] PROGRESS NOTE PATIENT: SUMAYA VASQUEZ : 1945 MR#: [id number] ADMIT: 10/14/2016 JOB ID: [id number] DATE: 10/20/2016 INFECTIOUS DISEASE FOLLOWUP NOTE: REASON FOR FOLLOWUP: Complicated MRSA urinary tract infection. INTERVAL HISTORY: Overnight, the patient states he feels well and denies fevers, chills, cough, or shortness of breath. The patient is a man of few words and is quite gruff in his demeanor. He was angry that his breakfast was late earlier today and has not been interested in much in the way of conversation or history gathering other than the basic stated above. PHYSICAL EXAMINATION: Reveals a gentleman. His T-max the last 24 hours is 37.6. He is currently 36.8. Pulse 78, respiratory rate 18, blood pressure 95/50, saturating well on room air. Oral cavity is unremarkable. Lungs with some decreased breath sounds at the bases but no rales or rhonchi are noted. Cardiac tones without change. Abdomen distended without notable abnormality. Still has a Watts catheter in place, and he is currently being dialyzed by a temporary line in his right neck. LABORATORIES: Include white count 10,800, platelet count 153,000. Creatinine 5.84, and he is being dialyzed at this moment. LFT normal. Hepatitis B viral load is pending. Urine grew MRSA, and we are treating it with daptomycin, and we await the daptomycin susceptibilities, which I asked for yesterday. Blood grew a pansensitive coag-negative staph, which we believe to be a contaminant. IMAGING: There is no new imaging. IMPRESSION: This is a complex case of a gentleman with acute superimposed on chronic renal insufficiency. He is found to have a very significant methicillin-resistant Staphylococcus aureus urinary tract infection, which we are treating with daptomycin as an alternative agent because we wish to avoid vancomycin in this circumstance. He is not bacteremic with the methicillin-resistant Staphylococcus aureus, and the single blood culture positive for coag-negative staphylococcus is a contaminant. RECOMMENDATIONS: 1. Will continue with renally adjusted daptomycin dosing here in the hospital. 2. At the time of discharge we may consider finishing up with linezolid or doxycycline to complete about two weeks of therapy for this MRSA UTI. 3. We await the quantification of the hepatitis B viral load. At that point, we will be making a decision about whether and how to treat his hepatitis B. 4. We await the daptomycin susceptibility that was ordered yesterday.
--- NOTE | 2016-10-20 11:56 | PCM.PNMED ---
Subjective Date of Service Oct 20, 2016 Subjective The patient's hemoglobin has dropped this morning to 6.8. His blood pressures evaluation 80-100 range and he is only had approximately 400 mils of urine out. Patient is somewhat lethargic but denies any chest pain, shortness of breath, cough or wheezing. Exam Vital Signs Vital Sign - Last Date Time Temp Pulse Resp B/P Pulse Ox O2 Delivery O2 Flow Rate FiO2 10/20/16 10:49 36.7 65 18 87/47 10/20/16 09:14 98 Room Air 10/18/16 16:23 2.00 Intake and Output 10/19/16 10/19/16 10/20/16 Cumulative From/Thru 15:00 23:00 07:00 10/14/16 14:53 - 10/20/16 05:19 Intake Total 200 ml 736 ml 51877 ml Output Total 250 ml 500 ml 7500 ml Balance -50 ml 236 ml 6171 ml Intake Oral 200 ml 736 ml 3855 ml IV Total 9266 ml Packed Cells 550 ml Output Urine Total 250 ml 500 ml 6300 ml Emesis 0 ml Ultrafiltrate 1200 ml # Bowel Movements 1 10 23 Exam HEENT examination is remarkable for pale sclera. Neck is supple without adenopathy thyromegaly or jugular venous distention. Lungs were clear to auscultation. Heart is regular rhythmic with a soft systolic murmur. Abdomen is soft without any tenderness rebound guarding masses or hepatosplenomegaly. She is not sure she clubbing cyanosis or edema. Lab and Diagnostics Result Diagram: 10/20/1641410/20/16414 Microbiology UA: SG 1.020, protein 100 MG/DL, packed WBC, packed RBC, moderate bacteria Urine Culture pending Blood cultures pending X-Rays, CTs and MRIs PROCEDURE: CT ABDOMEN AND PELVIS WITHOUT CONTRAST ([id number]) IMPRESSION: 1. Decreased, mild bilateral hydronephrosis. Decreased bilateral ureteral dilatation. No urinary tract calcification. 2. Moderate diffuse urinary bladder wall thickening, suggestive of cystitis. Cystoscopy is recommended to exclude underlying neoplasm. 3. Presumed transitional cell carcinoma versus renal cell carcinoma within the left interpolar kidney is unchanged. 4. Bowel containing umbilical hernia without evidence of associated strangulation, nor obstruction. Dictated by: Maria Eugenia Ball M.D. on 10/14/2016 at 14:04 PROCEDURE: X-RAY CHEST ONE VIEW, PORTABLE ([id number]) IMPRESSION: No acute cardiopulmonary findings. Dictated by: Nathalia Ray M.D. on 10/14/2016 at 13:45 . Assessment & Plan Impression #1 acute on chronic kidney injury versus end-stage renal disease. # 2 acute anemia #3 hypertension with hypertensive heart disease and hypertensive nephrosclerosis Recommendations #1 patient who dialyzes 4 hours on a 3 potassium bath. He will be run without heparin and will give 2 units of packed red blood cells and take off approximately 1 L of fluid. VTE Prophylaxis: SCDs VTE Mechanical Devices: Intermittant Pneumatic CD Resuscitation Status: CPR: Attempt Resuscitation Tyler Santos DO Oct 20, 2016 11:56
--- NOTE | 2016-10-20 14:23 | NUR ---
Dialysis note 4 hr HD tx. R IJ catheter. Dsg changed for dried blood, no s/so of infection but pt c/o of it feeling "sore". Isolated for Hep + B. QB 400. See DTR for complete vitals. Pt received 2 U PRBC's during tx without complications. Very little verbal communication, but agreeable with care. Rested thru tx. Catheter dwelled with 1000/1 U Heparin and secured. Report given and pt returned to floor stable.
--- NOTE | 2016-10-20 14:43 | PCM.PNMED ---
Subjective Date of Service Oct 20, 2016 Subjective 71-year-old male with history of obstructive uropathy, type II diabetes mellitus presents with acute renal failure and urinary tract infection with sepsis. Nausea is resolved. Appetite improving. No pain, dyspnea or symptomatic hypotension. Exam Vital Signs Vital Sign - Last Date Time Temp Pulse Resp B/P Pulse Ox O2 Delivery O2 Flow Rate FiO2 10/20/16 13:09 36.4 60 16 96/53 10/20/16 09:14 98 Room Air 10/18/16 16:23 2.00 Intake and Output 10/19/16 10/19/16 10/20/16 Cumulative From/Thru 14:59 22:59 06:59 10/14/16 14:53 - 10/20/16 05:19 Intake Total 200 ml 736 ml 53253 ml Output Total 250 ml 500 ml 7500 ml Balance -50 ml 236 ml 6171 ml Intake Oral 200 ml 736 ml 3855 ml IV Total 9266 ml Packed Cells 550 ml Output Urine Total 250 ml 500 ml 6300 ml Emesis 0 ml Ultrafiltrate 1200 ml # Bowel Movements 1 10 23 Exam General: Slightly dysphoric affect but no acute distress HEENT: sclerae anicteric, oral mucosa moist Neck: no JVD Chest: clear to auscultation Cardiac: S1S2, no murmur Abdomen: Protuberant, BS normal, non-tender Extremities: No pitting edema Neuro: A&O, cranial nerves symmetric, motor strength and coordination normal Lab and Diagnostics Result Diagram: 10/20/1641410/20/16 041 Microbiology UA: SG 1.020, protein 100 MG/DL, packed WBC, packed RBC, moderate bacteria Urine Culture pending Blood cultures pending X-Rays, CTs and MRIs PROCEDURE: CT ABDOMEN AND PELVIS WITHOUT CONTRAST ([id number]) IMPRESSION: 1. Decreased, mild bilateral hydronephrosis. Decreased bilateral ureteral dilatation. No urinary tract calcification. 2. Moderate diffuse urinary bladder wall thickening, suggestive of cystitis. Cystoscopy is recommended to exclude underlying neoplasm. 3. Presumed transitional cell carcinoma versus renal cell carcinoma within the left interpolar kidney is unchanged. 4. Bowel containing umbilical hernia without evidence of associated strangulation, nor obstruction. Dictated by: Maria Eugenia Ball M.D. on 10/14/2016 at 14:04 PROCEDURE: X-RAY CHEST ONE VIEW, PORTABLE ([id number]) IMPRESSION: No acute cardiopulmonary findings. Dictated by: Nathalia Ray M.D. on 10/14/2016 at 13:45 . Assessment & Plan 71-year-old man with history of obstructive uropathy, diabetes and obesity presents with probable gastroenteritis syndrome resulting in dehydration and acute renal failure. Acute and/or high-risk problems: # Acute renal failure. Nonoliguric. Abdominal CT scan reveals no hydronephrosis. Most likely dehydration related to urinary infection, possibly gastroenteritis, less likely recurrent bladder outlet obstruction. On presentation: metabolic acidosis, with anion gap 32, serum bicarbonate 5, Potassium 5.3, uric acid 10.6. Calcium phosphorus product approximately 90. For further hemodialysis today. - Follow daily BMP - Renal adjustment of all medications - Hemodialysis plans per nephrology service - considerations for permanent vascular access and outpatient dialysis plans yet to be made # Urinary tract infection. Urine culture now positive for MRSA. Curiously 1 of 2 blood cultures from 10/14 is also positive for coag-negative staph, judged to be a nonsignificant contaminant he received vancomycin on presentation in the emergency department - Continue daptomycin - Duration antibiotics per ID consult # Severe Sepsis. SIRS criteria on admission include pulse 101, respiratory rate 24, WBC 16.4. Mean arterial pressure is 65. Focal infection is urinary. Organ system dysfunction is acute renal failure. Blood culture equivocal for staph bacteremia. Her pressure remains low normal the patient clinically improved within 48 hours after dialysis. Initially received resuscitation with sodium bicarbonate at 200 mL per hour - Resolved # Hypertension, blood pressure remains low but no symptoms. No ongoing sepsis. No vasoactive medications. Weight is stable over course of hospitalization - Nephrology to manage volume status # Hypocalcemia. This largely corrects to normal in light of hypoalbuminemia. In light of high phosphorus, and risk of ectopic calcification, the patient should not receive IV calcium unless experiencing tetany, seizure or muscle cramping. Currently on calcium carbonate 500 mg 3 times, calcium acetate 1.3 g 3 times a day, with calcitriol 0.25 mcg daily - Monitor, but avoid supplementing IV calcium unless symptomatic - Continue current phosphate binder vitamin D and calcium # Nausea vomiting or anorexia. Possible viral gastroenteritis, but no evidence of diarrhea. Doubt active infection at this time. Current nausea may be related to uremia. Abdomen is clinically benign. Improving with correction of his uremia - Antiemetics as needed -Resolved # Type II diabetes mellitus. Split next basal bolus insulin. Blood glucose has been at goal. - 4 times a day capillary blood glucose - Glucose control goals: Random less than 180, fasting less than 140, none less than 70 - Insulin as needed, divided 50-50 long-acting and nutritional/correctional # Obstructive uropathy. CT scan revealing bladder wall thickening, also chronic left renal lesion consistent with neoplasm. - Continue Watts catheter present - Urology consult recommends outpatient follow-up with Dr. Nicholas Pain Evaluation: Adequate Pain Control VTE Prophylaxis: SCDs VTE Mechanical Devices: Intermittant Pneumatic CD Resuscitation Status: CPR: Attempt Resuscitation Time spent 25 minutes John Pickering MD Oct 20, 2016 14:43
--- NOTE | 2016-10-20 14:48 | NUR ---
To [facility] Patient transported by bed to [facility] with staff. canvas goods fabricator gave report to primary RN. Blood glucose 111 at approximately noon.
--- NOTE | 2016-10-20 19:33 | NUR ---
Dialysis/Low Blood Pressure Pt. left for dialysis at ~1000, Pt. blood pressure low, made aware, other VS stable, blood glucose 91, no insulin needed. Report given to dialysis nurse. Pt. came back at ~1445 from dialysis, VS stable upon return. Pt. has not been OOB this shift, Pt. ornery at times when it comes to Q2 turns and wants to be left alone. Pt. blood pressure still remain low, last blood pressure 88/55.
[2016-10-20] MEDS: Insulin GLARgine 100 Unit/mL Syringe SUBQ SCH ×2 (21:16→21:20)
[2016-10-21] VITALS (7 sets, daily range): BP systolic 72–97; BP diastolic 40–58; PULSE 67–84; RESP 16–20; O2SAT 94–96
[2016-10-21] MEDS: Sodium Chloride LOK Flush 10 mL Syringe IVFLUSH SCH ×3 (00:30→18:20)
--- NOTE | 2016-10-21 00:58 | NUR ---
Wounds Pt apprehensive about allowing senior writer to wash and dress sacral wounds as per wound care orders. Distribution Designer was able to convince pt to allow for care to continue. Wound care orders followed.
[2016-10-21 06:08] LABS: Phosphorus 2.7 mg/dL (2.5-4.9)
[2016-10-21] MEDS: Insulin LISPRO 300 Unit/3 mL Inj SUBQ SCH ×4 (08:00→20:22)
--- NOTE | 2016-10-21 11:27 | PROG NOTE ---
[address] [address] PROGRESS NOTE PATIENT: SUMAYA VASQUEZ : 1945 MR#: [id number] ADMIT: 10/14/2016 JOB ID: [id number] DATE: 10/21/2016 INFECTIOUS DISEASE FOLLOW UP NOTE: REASON FOR FOLLOWUP: Complicated MRSA urinary tract infection. INTERVAL HISTORY: The patient today is much more conversant and congenial. He states that he is feeling reasonably well though tired. He notes he would like to start getting out of bed, and become more active. He denies any ongoing fevers or chills. No significant shortness of breath. No problems with his right neck temporary dialysis line. He is having no GI symptoms. PHYSICAL EXAMINATION: Reveals an afebrile gentleman, temperature 36.5. He has been as high as 37.7 during the night. Pulse 82, blood pressure 87/53. He is saturating well on room air. The patient is more conversant today as was mentioned. His oral cavity is negative. His right neck central line is benign. His lungs with some few crackles at the bases. Abdomen obese, soft, and nontender. Still has a Watts catheter present. LABORATORIES: Include white count yesterday 10,000, not repeated today. His hematocrit yesterday was 21. His creatinine 4.06, and he remains dialysis dependent with a relatively low urine output. HIV has returned negative. Recall that micro studies showed MRSA in the urine. We now have back our daptomycin susceptibility and this is exquisitely sensitive. His blood cultures are coag-negative Staph. IMPRESSION: This patient is doing reasonably well with respect to his MRSA urinary tract infection and I think it is probably reasonable to treat this complicated urinary tract infection for two weeks. Will continue to use dapto as it is treated well into the urine and we now know this organism is very susceptible. We are avoiding vancomycin because we wish to preserve whatever renal function the patient may still have and hope that he can avoid permanent dialysis. A couple unanswered questions here are persistent hypotension and failure to improve his renal function. We discussed the case today with Dr. Santos of the nephrology service who believes that at least some of his hypotension is cardiogenic, and who is not terribly helpful about recovery of renal function in this very complex patient. RECOMMENDATIONS: 1. Will continue with the dapto for a total of two weeks. 2. Will continue to follow this patient with you on an ongoing basis.
--- NOTE | 2016-10-21 13:20 | PCM.PNMED ---
Subjective Date of Service Oct 21, 2016 Subjective Patient denies chest pain, or dyspnea. No nausea, vomiting or diarrhea. He is due for dialysis from his report tomorrow. Exam Vital Signs Vital Sign - Last Date Time Temp Pulse Resp B/P Pulse Ox O2 Delivery O2 Flow Rate FiO2 10/21/16 11:31 37.0 67 20 72/46 95 Room Air 10/18/16 16:23 2.00 Intake and Output 10/20/16 10/20/16 10/21/16 Cumulative From/Thru 15:00 23:00 07:00 10/14/16 14:53 - 10/21/16 06:49 Intake Total 760 ml 1353 ml 916 ml 76730 ml Output Total 1000 ml 500 ml 300 ml 9300 ml Balance -240 ml 853 ml 616 ml 7400 ml Intake Oral 1280 ml 800 ml 5935 ml IV Total 73 ml 116 ml 9455 ml Packed Cells 760 ml 1310 ml Output Urine Total 500 ml 300 ml 7100 ml Emesis 0 ml Ultrafiltrate 1000 ml 2200 ml # Bowel Movements 0 21 Exam Alert and oriented 3, flat affect, slow and fluent speech Neck supple. Lungs are clear, normal effort and rate. Heart is regular without murmur gallop or rub Abdomen is soft nondistended. Extremities with 1+ edema. Skin is free of rash or lesions. IVs and Medications Medications Reviewed: Medications were reviewed in detail Lab and Diagnostics Result Diagram: 10/20/16 0415 10/21/16 0445 Microbiology UA: SG 1.020, protein 100 MG/DL, packed WBC, packed RBC, moderate bacteria Urine Culture pending Blood cultures pending X-Rays, CTs and MRIs PROCEDURE: CT ABDOMEN AND PELVIS WITHOUT CONTRAST ([id number]) IMPRESSION: 1. Decreased, mild bilateral hydronephrosis. Decreased bilateral ureteral dilatation. No urinary tract calcification. 2. Moderate diffuse urinary bladder wall thickening, suggestive of cystitis. Cystoscopy is recommended to exclude underlying neoplasm. 3. Presumed transitional cell carcinoma versus renal cell carcinoma within the left interpolar kidney is unchanged. 4. Bowel containing umbilical hernia without evidence of associated strangulation, nor obstruction. Dictated by: Maria Eugenia Ball M.D. on 10/14/2016 at 14:04 PROCEDURE: X-RAY CHEST ONE VIEW, PORTABLE ([id number]) IMPRESSION: No acute cardiopulmonary findings. Dictated by: Nathalia Ray M.D. on 10/14/2016 at 13:45 . Assessment & Plan 71-year-old man with history of obstructive uropathy, diabetes and obesity presents with probable gastroenteritis syndrome resulting in dehydration and acute renal failure. Acute and/or high-risk problems: # Acute renal failure. Nonoliguric. The patient shows little indication of improvement. She will continue on dialysis as noted per nephrology with his next treatment, Tuesday. # Urinary tract infection. MRSA. Curiously 1 of 2 blood cultures from 10/14 is also positive for coag-negative staph, judged to be a nonsignificant contaminant he received vancomycin on presentation in the emergency department - Continue daptomycin -For total of 2 weeks per ID. # Severe Sepsis. SIRS criteria on admission include pulse 101, respiratory rate 24, WBC 16.4. Mean arterial pressure is 65. Focal infection is urinary. Patient is improved clinically. - Resolved # Hypertension, blood pressure remains low but no symptoms. No ongoing sepsis. No vasoactive medications. Weight is stable over course of hospitalization - Today the patient appears to be slightly hypovolemic with orthostatic changes noted. # Hypocalcemia. This largely corrects to normal in light of hypoalbuminemia. In light of high phosphorus, and risk of ectopic calcification, the patient should not receive IV calcium unless experiencing tetany, seizure or muscle cramping. Currently on calcium carbonate 500 mg 3 times, calcium acetate 1.3 g 3 times a day, with calcitriol 0.25 mcg daily - Monitor, but avoid supplementing IV calcium unless symptomatic - Continue current phosphate binder vitamin D and calcium # Nausea vomiting or anorexia. Possible viral gastroenteritis, but no evidence of diarrhea. Doubt active infection at this time. Current nausea may be related to uremia. Abdomen is clinically benign. Improving with correction of his uremia - Antiemetics as needed -Resolved # Type II diabetes mellitus. Split next basal bolus insulin. Blood glucose has been at goal. - 4 times a day capillary blood glucose - Glucose control goals: Random less than 180, fasting less than 140, none less than 70 - Insulin as needed, divided 50-50 long-acting and nutritional/correctional # Obstructive uropathy. CT scan revealing bladder wall thickening, also chronic left renal lesion consistent with neoplasm. - Continue Watts catheter present - Urology consult recommends outpatient follow-up with Dr. Nicholas # Profound anemia, multifactorial. Likely likely related to kidney disease as well as iron deficiency anemia. The patient has had 2 units of packed red blood cells ordered per nephrology. We will follow daily hematocrit. Pain Evaluation: Adequate Pain Control VTE Prophylaxis: SCDs VTE Mechanical Devices: Intermittant Pneumatic CD Resuscitation Status: CPR: Attempt Resuscitation Time spent 25 minutes Oral Pineda MD Oct 21, 2016 13:20
--- NOTE | 2016-10-21 14:43 | NUR ---
Social Work: Readiness for Discharge D: Pt had discharge orders earlier in the day that were cancelled and nephrology consult. Per EMR review, pt has poor kidney functioning and is a new hemodialysis pt. Per ID notes, pt will likely require 2 weeks daptomycin abx however notes do not suggest how this is to be administered. APPLIANCE MECHANIC met with pt at bedside to discuss discharge planning. Pt states he lives at home with his in-home caregiver, Gill, whom he states does "everything" for him. Pt states he is wheelchair bound but is I with transfers. PT has yet to evaluate pt during admission due to pt's clinical course. Pt is open with [facility] per case management pass-off. APPLIANCE MECHANIC spoke with Abhinav Foster with [facility] who states that the pt is no longer current and will need a new order if he requires HH. F2F in folder for completion if recommended by PT and MD. t/c to pt's caregiver, Gill. Left message requesting return call to discuss dcp. A: Pt who lives at home with in-home caregiver. P: Anticipate pt to discharge home via POV/Private Caregiver and new [facility], New order will need to be obtained. ROSY Foster
--- NOTE | 2016-10-21 15:49 | PCM.PNMED ---
Subjective Date of Service Oct 21, 2016 Subjective Patient continues to do well however his renal function remains about the same. He has not had much urine output and his blood pressure remains in the 90s. He is much more alert and comfortable without any cough, wheezing, chest pain shortness of breath or vomiting and diarrhea. Exam Vital Signs Vital Sign - Last Date Time Temp Pulse Resp B/P Pulse Ox O2 Delivery O2 Flow Rate FiO2 10/21/16 11:31 37.0 67 20 72/46 95 Room Air 10/18/16 16:23 2.00 Intake and Output 10/20/16 10/20/16 10/21/16 Cumulative From/Thru 14:59 22:59 06:59 10/14/16 14:53 - 10/21/16 06:49 Intake Total 760 ml 1353 ml 916 ml 90843 ml Output Total 1000 ml 500 ml 300 ml 9300 ml Balance -240 ml 853 ml 616 ml 7400 ml Intake Oral 1280 ml 800 ml 5935 ml IV Total 73 ml 116 ml 9455 ml Packed Cells 760 ml 1310 ml Output Urine Total 500 ml 300 ml 7100 ml Emesis 0 ml Ultrafiltrate 1000 ml 2200 ml # Bowel Movements 0 21 Exam HEENT examination is remarkable for pale sclera. Neck is supple without adenopathy thyromegaly or jugular venous distention. Lungs are clear to auscultation. Heart is regular and rhythmical with a soft systolic murmur. Abdomen is soft without any tenderness rebound guarding masses or hepatosplenomegaly. Extremities do not show any evidence of any clubbing cyanosis or edema. Skin turgor is good and there is no evidence of any rashes. Lab and Diagnostics Result Diagram: 10/20/16 0415 10/21/16 0445 Microbiology UA: SG 1.020, protein 100 MG/DL, packed WBC, packed RBC, moderate bacteria Urine Culture pending Blood cultures pending X-Rays, CTs and MRIs PROCEDURE: CT ABDOMEN AND PELVIS WITHOUT CONTRAST ([id number]) IMPRESSION: 1. Decreased, mild bilateral hydronephrosis. Decreased bilateral ureteral dilatation. No urinary tract calcification. 2. Moderate diffuse urinary bladder wall thickening, suggestive of cystitis. Cystoscopy is recommended to exclude underlying neoplasm. 3. Presumed transitional cell carcinoma versus renal cell carcinoma within the left interpolar kidney is unchanged. 4. Bowel containing umbilical hernia without evidence of associated strangulation, nor obstruction. Dictated by: Maria Eugenia Ball M.D. on 10/14/2016 at 14:04 PROCEDURE: X-RAY CHEST ONE VIEW, PORTABLE ([id number]) IMPRESSION: No acute cardiopulmonary findings. Dictated by: Nathalia Ray M.D. on 10/14/2016 at 13:45 . 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 VTE Prophylaxis: SCDs VTE Mechanical Devices: Intermittant Pneumatic CD Resuscitation Status: CPR: Attempt Resuscitation Tyler Santos DO Oct 21, 2016 15:49
--- NOTE | 2016-10-21 20:00 | NUR ---
Blood pressure/mobility Patient blood pressure continues to be low. MD notified. Patient's BP low when PT worked with patient. MD notified. Care continues.
--- NOTE | 2016-10-21 20:03 | NUR ---
Woundcare/Repositioning Applied calmoseptine after using barrier wipes to patient's gluteus dinorah. Patient cooperative with repositioning with pillows and heel lifts.
[2016-10-21] MEDS: Insulin GLARgine 100 Unit/mL Syringe SUBQ SCH (20:34)
[2016-10-22] VITALS (8 sets, daily range): BP systolic 91–105; BP diastolic 48–61; PULSE 65–81; RESP 18–24; O2SAT 93–96
[2016-10-22] MEDS: Sodium Chloride LOK Flush 10 mL Syringe IVFLUSH SCH ×3 (00:30→16:30)
--- NOTE | 2016-10-22 03:00 | NUR ---
Mentation Pt was more alert and bright at the start of shift. Pt cooperative with care, pt washed, lotioned, and barrier cream applied to open areas on sacrum.
[2016-10-22 05:27] LABS: Phosphorus 3.2 mg/dL (2.5-4.9)
[2016-10-22] MEDS: Insulin LISPRO 300 Unit/3 mL Inj SUBQ SCH ×4 (08:00→21:46)
--- NOTE | 2016-10-22 10:45 | NUR ---
Dialysis/Hungry Breakfast still not delivered, pt stated he did not want to leave without eating. Notified Nancy FOSTERgreens keeper. RN and HYDRAULIC HAMMER OPERATOR encouraged pt HYDRAULIC HAMMER OPERATOR would bring food tray to pt once arrived. Patient off the floor to Dialysis at approximately 0935. HYDRAULIC HAMMER OPERATOR delivered tray at approximately 1000.
--- NOTE | 2016-10-22 10:48 | NUR ---
Pt arrived to [facility]: Pt arrived to [facility] for dialysis. Report given to dialysis nurse prior to arrival to [facility]. Addendum: 10/22/16 at 1534 by ELVIN RODRIGUES RN Pt returned to [facility]. Pt appears stable at time of transfer. Report called to primary nurse Melanie Lambert RN.
[2016-10-22 14:22] LABS: Mean Corpuscular Hemoglobin 29.1 pg (27.0-35.0); Mean Corpuscular Volume 93.8 fL (81-100)
--- NOTE | 2016-10-22 14:27 | NUR ---
Faxed referral to [facility] Swing bed per STRIPER SPRAY GUN and [employer] G[employer] patient registration supervisor. Patient is needing at least 2 weeks of IV dapto.
--- NOTE | 2016-10-22 14:34 | PCM.PNMED ---
Subjective Date of Service Oct 22, 2016 Subjective The patient still remains oliguric with 640 and also when necessary yesterday and 500 out today. Patient offers no new complaints and continues to show some improvement. He denies any chest pain shortness of breath vomiting or diarrhea. Exam Vital Signs Vital Sign - Last Date Time Temp Pulse Resp B/P Pulse Ox O2 Delivery O2 Flow Rate FiO2 10/22/16 09:57 68 10/22/16 09:21 37.0 18 99/58 96 Room Air 10/18/16 16:23 2.00 Intake and Output 10/21/16 10/21/16 10/22/16 Cumulative From/Thru 15:00 23:00 07:00 10/14/16 14:53 - 10/22/16 06:51 Intake Total 800 ml 712 ml 06161 ml Output Total 350 ml 500 ml 96503 ml Balance 450 ml 212 ml 8062 ml Intake Oral 800 ml 636 ml 7371 ml IV Total 76 ml 9531 ml Packed Cells 1310 ml Output Urine Total 350 ml 500 ml 7950 ml Emesis 0 ml Ultrafiltrate 2200 ml # Bowel Movements 1 Exam Neck is supple without adenopathy thyromegaly or jugular venous distention. Lungs were clear with a few bibasilar rales. Heart was regular is Merry with a soft systolic murmur. Abdomen is soft without any tenderness rebound guarding masses or hepatosplenomegaly. Extremities shows some mild bilateral lower extremity edema. Lab and Diagnostics Result Diagram: 10/22/16 1400 10/22/16 0435 Microbiology UA: SG 1.020, protein 100 MG/DL, packed WBC, packed RBC, moderate bacteria Urine Culture pending Blood cultures pending X-Rays, CTs and MRIs PROCEDURE: CT ABDOMEN AND PELVIS WITHOUT CONTRAST ([id number]) IMPRESSION: 1. Decreased, mild bilateral hydronephrosis. Decreased bilateral ureteral dilatation. No urinary tract calcification. 2. Moderate diffuse urinary bladder wall thickening, suggestive of cystitis. Cystoscopy is recommended to exclude underlying neoplasm. 3. Presumed transitional cell carcinoma versus renal cell carcinoma within the left interpolar kidney is unchanged. 4. Bowel containing umbilical hernia without evidence of associated strangulation, nor obstruction. Dictated by: Maria Eugenia Ball M.D. on 10/14/2016 at 14:04 PROCEDURE: X-RAY CHEST ONE VIEW, PORTABLE ([id number]) IMPRESSION: No acute cardiopulmonary findings. Dictated by: Nathalia Ray M.D. on 10/14/2016 at 13:45 . Assessment & Plan Impression #1 Acute on Chronic Kidney Injury Is Unchanged #2 Hypertension with Hypertensive Heart Disease Hypertensive Nephrosclerosis #3 Hypotension Recommendations #1 patient to dialyze today for 4 hours however climaxed dialyzer. He is to be dialyzed on a 2 potassium bath with 1200 units of heparin as a loading dose and 500 hour. Will attempt to take 1.5-2 L. off. Once his treatment is complete we will allow his temporary dialysis catheter. VTE Prophylaxis: SCDs VTE Mechanical Devices: Intermittant Pneumatic CD Resuscitation Status: CPR: Attempt Resuscitation Tyler Santos DO Oct 22, 2016 14:34
--- NOTE | 2016-10-22 14:45 | NUR ---
Dialysis note: 4 hrs tx. 2000 ml net UF. Right temp IJ catheter, dsg changed, cath exit site slightly reddened, Dr Santos notified. Pls see DTR for VS details. Qb 400 with catheter limbs reversed A-V V-A due to poor catheter function. Heparin given. O2 @ 2L via NC on. Tolerated tx, slept at intervals. Post tx, right temp catheter dc'd as ordered. Exit site cleaned with chloraprep. Sutures removed. Catheter pulled out intact. Pressure applied for 15 min. Sureseal dsg applied, dry and intact. Report given to Juju Smith RN. Transferred back to patient's room in stable condition.
--- NOTE | 2016-10-22 15:04 | NUR ---
NUTRITION FOLLOW-UP Assess: 71 YO M admitted with sepsis, renal failure. Pt continues to require dialysis for GIGI. Pt w/ non-pressure related wound on pannus and buttocks d/t moisture and incontinence. PMHX: Obstructive uropathy w/ urinary infection, CKD, Left renal mass, type 2 DM, obesity. DIET: Renal. PO intake 100% of most meals LABS: BUN 57, Cr 5.94, Glu 108, Ca 7.1, Albumin 2.4 MEDICATIONS: Reviewed. Insulin, Calcitrol, PhosLo, GI: BM x1 10/21 SKIN: Wounds on pannus and buttocks d/t moisture and incontinence WEIGHT: 141.9 kg, BMI 42.4 kg/m2, Admit wt: 133.5 kg, IBW: 80.9 kg, Adj. BW 95.0 kg. ESTIMATED NEEDS: BMI/DIALYSIS Calories: 6130-5270 kcal/day (30-35 kcal/kg Adj. BW) Protein: 114-190 g/day (1.2-2.0 g/kg Adj. BW) NUTRITION DIAGNOSIS: 1) Increased nutrient needs related to increased demand for nutrients as evidenced by GIGI on CKD, need for dialysis.--PERSISTS INTERVENTION: 1) Will continue Nepro. MONITOR/EVALUATE: PO intake, diet tolerance, labs, GI/nutrition status. Follow per moderate nutrition risk guidelines.
--- NOTE | 2016-10-22 15:10 | NUR ---
Dialysis to [facility] Patient arrived back to [facility] escorted by MANUFACTURING TEACHER. Patients VSS according to baseline. Patient states he is very sleepy. Patient resting at this time. Care Continues.
--- NOTE | 2016-10-22 15:30 | PROG NOTE ---
[address] [address] PROGRESS NOTE PATIENT: SUMAYA VASQUEZ : 1945 MR#: [id number] ADMIT: 10/14/2016 JOB ID: [id number] DATE: 10/22/2016 REASON FOR FOLLOWUP: Complicated MRSA urinary tract infection in a patient with acute superimposed on chronic renal failure. INTERVAL HISTORY: Today the patient is once again largely noncommunicative. It has been our experience seeing this patient the last few days that about every other day he is chatty and conversational, and about every other day he just refuses to speak. Today it seems as if he might be asleep, but he does not rouse, and he was earlier apparently speaking to the dialysis nurse. It looks like he is awake but just does not want to speak, so we cannot tell what symptoms he may or may not have today. PHYSICAL EXAMINATION: Reveals an afebrile gentleman who is lying in bed and not responding in any way. Temperature 37, pulse 75, blood pressure 99/58, respiratory rate 18, saturating well on room air. Lungs: Relatively clear anteriorly. Abdomen: Benign. The right IJ temporary dialysis line has been pulled and there are plans to leave it out over the weekend to see if he recovers enough renal function. No notable edema is present. LABORATORIES: Include a white count now normal 6400. Creatinine 2.26. Hepatitis Be antibody has returned positive, interestingly, in conjunction with a hepatitis B surface antigen and a positive hepatitis B core total. Hepatitis B quantitation is pending. HIV and hep C are negative. Micro studies include the urine growing MRSA. C. diff negative. IMAGING: No new imaging is available. IMPRESSION: This is a complex case of a gentleman who is sometimes not interested in speaking to the medical staff, which makes it a bit more difficult to evaluate him. He is being treated at this point for a complicated MRSA infection is about nursing home into a planned two weeks of therapy. We are using daptomycin to avoid renal injury. 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 We await his viral load. RECOMMENDATIONS: 1. Will continue with the daptomycin for a total of two weeks, though we could switch to linezolid to facilitate discharge if he is ready to go, before then. 2. We await the quantitative hepatitis B viral load. 3. Will continue to follow this complex patient with you. I discussed this case earlier with Dr. Santos.
--- NOTE | 2016-10-22 16:41 | PCM.PNMED ---
Subjective Date of Service Oct 22, 2016 Subjective Patient is somnolent. He tends to get quite tired after dialysis. No chest or abdominal pain. No nausea vomiting or diarrhea. Exam Vital Signs Vital Sign - Last Date Time Temp Pulse Resp B/P Pulse Ox O2 Delivery O2 Flow Rate FiO2 10/22/16 15:38 37.0 68 18 94/48 93 Room Air 10/18/16 16:23 2.00 Intake and Output 10/21/16 10/21/16 10/22/16 Cumulative From/Thru 15:00 23:00 07:00 10/14/16 14:53 - 10/22/16 06:51 Intake Total 800 ml 712 ml 76977 ml Output Total 350 ml 500 ml 83870 ml Balance 450 ml 212 ml 8062 ml Intake Oral 800 ml 636 ml 7371 ml IV Total 76 ml 9531 ml Packed Cells 1310 ml Output Urine Total 350 ml 500 ml 7950 ml Emesis 0 ml Ultrafiltrate 2200 ml # Bowel Movements 1 22 Exam Patient is lethargic but in no acute distress Anicteric sclera. Neck supple. Lungs are clear to monitor. Heart is regular without murmur. Abdomen is soft nondistended. Extremities elbow for 1+ edema. IVs and Medications Medications Reviewed: Medications were reviewed in detail Lab and Diagnostics Result Diagram: 10/22/16 1400 10/22/16 1400 Microbiology UA: SG 1.020, protein 100 MG/DL, packed WBC, packed RBC, moderate bacteria Urine Culture pending Blood cultures pending X-Rays, CTs and MRIs PROCEDURE: CT ABDOMEN AND PELVIS WITHOUT CONTRAST ([id number]) IMPRESSION: 1. Decreased, mild bilateral hydronephrosis. Decreased bilateral ureteral dilatation. No urinary tract calcification. 2. Moderate diffuse urinary bladder wall thickening, suggestive of cystitis. Cystoscopy is recommended to exclude underlying neoplasm. 3. Presumed transitional cell carcinoma versus renal cell carcinoma within the left interpolar kidney is unchanged. 4. Bowel containing umbilical hernia without evidence of associated strangulation, nor obstruction. Dictated by: Maria Eugenia Ball M.D. on 10/14/2016 at 14:04 PROCEDURE: X-RAY CHEST ONE VIEW, PORTABLE ([id number]) IMPRESSION: No acute cardiopulmonary findings. Dictated by: Nathalia Ray M.D. on 10/14/2016 at 13:45 . Assessment & Plan # Acute renal failure. Nonoliguric. The patient shows little indication of improvement. The patient continued to be dialyzed about every other day pending any evidence of clinical improvement or failure to improve. He will be in hospital through the weekend. # Urinary tract infection. MRSA. Curiously 1 of 2 blood cultures from 10/14 is also positive for coag-negative staph, judged to be a nonsignificant contaminant he received vancomycin on presentation in the emergency department - Continue daptomycin -For total of 2 weeks per ID. # Severe Sepsis. SIRS criteria on admission include pulse 101, respiratory rate 24, WBC 16.4. Mean arterial pressure is 65. Focal infection is urinary. Patient is improved clinically. - Resolved # Hypertension, blood pressure remains low but no symptoms. No ongoing sepsis. No vasoactive medications. Weight is stable over course of hospitalization - Today the patient appears to be slightly hypovolemic with orthostatic changes noted. # Nausea vomiting or anorexia. This likely was related to uremia and has improved with dialysis. # Type II diabetes mellitus. Split next basal bolus insulin. Blood glucose has been at goal. - 4 times a day capillary blood glucose - Glucose control goals: Random less than 180, fasting less than 140, none less than 70 - Insulin as needed, divided 50-50 long-acting and nutritional/correctional # Obstructive uropathy. CT scan revealing bladder wall thickening, also chronic left renal lesion consistent with neoplasm. - Continue Watts catheter present - Urology consult recommends outpatient follow-up with Dr. Nicholas # Profound anemia, multifactorial. Likely likely related to kidney disease as well as iron deficiency anemia. The patient has had 2 units of packed red blood cells ordered per nephrology. We will follow daily hematocrit. #Hepatitis B positive serology with viral titer pending. We will further discuss with ID 1 titers become available. Pain Evaluation: Adequate Pain Control VTE Prophylaxis: SCDs VTE Mechanical Devices: Intermittant Pneumatic CD Resuscitation Status: CPR: Attempt Resuscitation Time spent 30 minutes Oral Pineda MD Oct 22, 2016 16:41
[2016-10-22] MEDS: DAPTOMYCIN IV SCH (17:40)
[2016-10-22] MEDS: SODIUM CHLORIDE 0.9% IV SCH (17:40)
--- NOTE | 2016-10-22 17:43 | NUR ---
MEDICATION UNABLE TO ADMINISTER PHOSLO AT 1700 DUE TO PT BEING TOO SLEEPY/NOT ALERT ENOUGH TO TAKE HIS MEDICINE SAFELY AT THIS TIME.
--- NOTE | 2016-10-22 20:04 | NUR ---
Dinner Patient refused dinner this shift. States he is too tired to eat. Care continues.
[2016-10-22] MEDS: Insulin GLARgine 100 Unit/mL Syringe SUBQ SCH (21:00)
[2016-10-23] VITALS (8 sets, daily range): BP systolic 89–109; BP diastolic 47–59; PULSE 68–83; RESP 14–18; O2SAT 89–99
[2016-10-23] MEDS: Sodium Chloride LOK Flush 10 mL Syringe IVFLUSH SCH ×3 (00:30→16:30)
[2016-10-23 04:14] LABS: Phosphorus 3.6 mg/dL (2.5-4.9)
[2016-10-23] MEDS: 0.9% Sodium Chloride 250 ML IV PRN (05:13)
--- NOTE | 2016-10-23 06:00 | NUR ---
Agitation/ Refusing Turns/ Tele / O2 / Glucose Pt refusing Q 2 hour turns despite education. Pt is agitated and beligerent with staff when it comes to changing positions in bed. No c/o chest pain, Tele SR with IVCD HR 60-70's. No c/o SOB, RA sats 94-96%. 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
[2016-10-23] MEDS: Insulin LISPRO 300 Unit/3 mL Inj SUBQ SCH ×3 (09:06→17:06)
--- NOTE | 2016-10-23 10:25 | PCM.PNMED ---
Subjective Date of Service Oct 23, 2016 Subjective No difficulties overnight. Supple. No chest pain, or dyspnea. No cough. No abdominal pain. Exam Vital Signs Vital Sign - Last Date Time Temp Pulse Resp B/P Pulse Ox O2 Delivery O2 Flow Rate FiO2 10/23/16 10:04 76 10/23/16 09:09 37.1 14 89/50 90 Room Air 10/18/16 16:23 2.00 Intake and Output 10/22/16 10/22/16 10/23/16 Cumulative From/Thru 15:00 23:00 07:00 10/14/16 14:53 - 10/23/16 06:25 Intake Total 0 ml 800 ml 94491 ml Output Total 2000 ml 550 ml 300 ml 07442 ml Balance -2000 ml -550 ml 500 ml 6012 ml Intake Oral 0 ml 800 ml 8171 ml IV Total 9531 ml Packed Cells 1310 ml Output Urine Total 550 ml 300 ml 8800 ml Emesis 0 ml Ultrafiltrate 2000 ml 4200 ml # Bowel Movements 22 Exam Alert oriented, flat affect. Speech intermittently. Anicteric sclerae. Supple Lungs are clear, normal effort. Heart is regular without murmur Abdomen soft nondistended. Extremities are free of edema good pedal pulses. IVs and Medications Medications Reviewed: Medications were reviewed in detail Lab and Diagnostics Result Diagram: 10/22/16 1400 10/23/16 0335 Microbiology UA: SG 1.020, protein 100 MG/DL, packed WBC, packed RBC, moderate bacteria Urine Culture pending Blood cultures pending X-Rays, CTs and MRIs PROCEDURE: CT ABDOMEN AND PELVIS WITHOUT CONTRAST ([id number]) IMPRESSION: 1. Decreased, mild bilateral hydronephrosis. Decreased bilateral ureteral dilatation. No urinary tract calcification. 2. Moderate diffuse urinary bladder wall thickening, suggestive of cystitis. Cystoscopy is recommended to exclude underlying neoplasm. 3. Presumed transitional cell carcinoma versus renal cell carcinoma within the left interpolar kidney is unchanged. 4. Bowel containing umbilical hernia without evidence of associated strangulation, nor obstruction. Dictated by: Maria Eugenia Ball M.D. on 10/14/2016 at 14:04 PROCEDURE: X-RAY CHEST ONE VIEW, PORTABLE ([id number]) IMPRESSION: No acute cardiopulmonary findings. Dictated by: Nathalia Ray M.D. on 10/14/2016 at 13:45 . Assessment & Plan 1. Acute renal failure. Nonoliguric. The patient shows little indication of improvement. The patient continued to be dialyzed about every other day pending any evidence of clinical improvement or failure to improve. He will be in hospital through the weekend. We will continue to dialyze per renal. They did remove his temporary dialysis catheter yesterday so anticipate placement of a tunneled catheter in the next 1-2 days. His potassium is normal today. 2. Urinary tract infection. MRSA. Curiously 1 of 2 blood cultures from 10/14 is also positive for coag-negative staph, judged to be a nonsignificant contaminant he received vancomycin on presentation in the emergency department - Continue daptomycin -For total of 2 weeks per ID. 3. Severe Sepsis. SIRS criteria on admission include pulse 101, respiratory rate 24, WBC 16.4. Mean arterial pressure is 65. Focal infection is urinary. Patient is improved clinically. - Resolved 4. Hypertension, blood pressure remains low but no symptoms. No ongoing sepsis. No vasoactive medications. Weight is stable over course of hospitalization - Today the patient appears to be slightly hypovolemic with orthostatic changes noted. 5. Type II diabetes mellitus. Split next basal bolus insulin. Blood glucose has been at goal. He has good control on current regimen, no changes. 6. Obstructive uropathy. CT scan revealing bladder wall thickening, also chronic left renal lesion consistent with neoplasm. - Continue Watts catheter present - Urology consult recommends outpatient follow-up with Dr. Nicholas 7. Profound anemia, multifactorial. Likely likely related to kidney disease as well as iron deficiency anemia. The patient has had 2 units of packed red blood cells ordered per nephrology. We will follow daily hematocrit. This is improving. 8. Hepatitis B positive serology with viral titer pending. We will further discuss with ID when titers become available. Pain Evaluation: Adequate Pain Control VTE Prophylaxis: SCDs VTE Mechanical Devices: Intermittant Pneumatic CD Resuscitation Status: CPR: Attempt Resuscitation Time spent 25 minutes Oral Pineda MD Oct 23, 2016 10:25
[2016-10-23 10:40] LABS: Mean Corpuscular Volume 94.7 fL (81-100)
--- NOTE | 2016-10-23 11:57 | PCM.PNMED ---
Subjective Date of Service Oct 23, 2016 Subjective The patient's condition continues to improve. He had 1050 and urine output the last 24 hours. He is much more alert and interactive and denies any chest pain , shortness of breath, nausea vomiting or diarrhea. Exam Vital Signs Vital Sign - Last Date Time Temp Pulse Resp B/P Pulse Ox O2 Delivery O2 Flow Rate FiO2 10/23/16 10:04 76 10/23/16 09:09 37.1 14 89/50 90 Room Air 10/18/16 16:23 2.00 Intake and Output 10/22/16 10/22/16 10/23/16 Cumulative From/Thru 15:00 23:00 07:00 10/14/16 14:53 - 10/23/16 06:25 Intake Total 0 ml 800 ml 39266 ml Output Total 2000 ml 550 ml 300 ml 16372 ml Balance -2000 ml -550 ml 500 ml 6012 ml Intake Oral 0 ml 800 ml 8171 ml IV Total 9531 ml Packed Cells 1310 ml Output Urine Total 550 ml 300 ml 8800 ml Emesis 0 ml Ultrafiltrate 2000 ml 4200 ml # Bowel Movements 22 Exam HEENT examination is remarkable for pallor sclera. Neck is supple without adenopathy thyromegaly or jugular venous distention. Lungs were clear to auscultation though diminished in both bases. Heart is regular and rhythmic with a soft systolic murmur. Soft without any tenderness rebound guarding masses or hepatosplenomegaly. Extremities large prostate clubbing cyanosis Lab and Diagnostics Result Diagram: 10/23/16 1038 10/23/16 0335 Microbiology UA: SG 1.020, protein 100 MG/DL, packed WBC, packed RBC, moderate bacteria Urine Culture pending Blood cultures pending X-Rays, CTs and MRIs PROCEDURE: CT ABDOMEN AND PELVIS WITHOUT CONTRAST ([id number]) IMPRESSION: 1. Decreased, mild bilateral hydronephrosis. Decreased bilateral ureteral dilatation. No urinary tract calcification. 2. Moderate diffuse urinary bladder wall thickening, suggestive of cystitis. Cystoscopy is recommended to exclude underlying neoplasm. 3. Presumed transitional cell carcinoma versus renal cell carcinoma within the left interpolar kidney is unchanged. 4. Bowel containing umbilical hernia without evidence of associated strangulation, nor obstruction. Dictated by: Maria Eugenia Ball M.D. on 10/14/2016 at 14:04 PROCEDURE: X-RAY CHEST ONE VIEW, PORTABLE ([id number]) IMPRESSION: No acute cardiopulmonary findings. Dictated by: Nathalia Ray M.D. on 10/14/2016 at 13:45 . Assessment & Plan Impression #1 acute on chronic kidney injury secondary to obstructive uropathy and acute tubular necrosis which may be resolving at this time #2 chronic kidney disease stage III for a #3 hypertension with hypertensive heart disease and hypertensive nephrosclerosis. Recommendations #1 is acute temporary dialysis catheter and I would like to increase his activity to have him get out of bed with assistance. I will also like to try IV furosemide and attempt to augment his urine output. VTE Prophylaxis: SCDs VTE Mechanical Devices: Intermittant Pneumatic CD Resuscitation Status: CPR: Attempt Resuscitation Tyler Santos DO Oct 23, 2016 11:57
[2016-10-23] MEDS ORDERED: Furosemide 10 mg/mL 10 mL Inj IVPUSH ONE (12:00)
--- NOTE | 2016-10-23 13:11 | NUR ---
Social work note - Readiness for d/c CARBON FURNACE OPERATOR met with pt - pt continues to receive dialysis and IV dapto. Nephrology and Infectious disease continue to follow to identify if pt will need outpt HDU and IV abx. Pt states that he wants to return home with help from his instructional supervisor Glil. He is willing to have [facility] at d/c. Pt has DPOA paperwork that he would like notarized - CARB[employer] FURNACE OPERATOR identified that he will need to get it signed after d/c at bank. Pt verbalized understanding. identifies that pt will likely remain in the hospital through the weekend. Plan: Home with [facility] RN PT and transport from caregiver. APURVA Oconnor
--- NOTE | 2016-10-23 15:45 | NUR ---
Evaluation completed. Please go to "Notes" then click on "Assessments and Notes" (bottom left corner of screen). Then select appropriate discipline tab on top of screen.
--- NOTE | 2016-10-23 19:29 | NUR ---
Ambulation Pt. got up OOB with PT and sat in his chair in room this afternoon for ~1hr. Pt. has not shown any signs of agitation on this shift and was more compliant with care. Pt. was educated on turning more independently in bed to avoid bed sores, Pt. stated understanding. Pt. at times told me to come back when I would come in to try and do q2hr turns, Pt. would state "later, not right now".
[2016-10-24] VITALS (9 sets, daily range): BP systolic 86–108; BP diastolic 47–54; PULSE 74–83; RESP 16–24; O2SAT 91–97
[2016-10-24] MEDS: Sodium Chloride LOK Flush 10 mL Syringe IVFLUSH SCH ×3 (00:30→16:30)
[2016-10-24] MEDS: Insulin LISPRO 300 Unit/3 mL Inj SUBQ SCH ×5 (00:50→22:00)
[2016-10-24] MEDS: Insulin GLARgine 100 Unit/mL Syringe SUBQ SCH ×2 (00:50→22:16)
--- NOTE | 2016-10-24 06:37 | NUR ---
Critical Creatinine / Cooperative / Tele / Hypotension/ Creat of 5.82 this AM, Dr Willard notified, no new orders. Pt more cooperative tonight allowing staff to help him change positions in bed. No c/o chest pain or other discomfort, Tele SR with IVCD. Pt has been hypotensive tonight with SBPs in the 89s to 95s, denies dizziness or lightheadedness. Denies SOB, RA 94-95%. Blood glucoses tonight were 131 and 104.
[2016-10-24] MEDS: 0.9% Sodium Chloride 250 ML IV PRN (08:58)
[2016-10-24] MEDS: SODIUM CHLORIDE 0.9% IV SCH (09:27)
[2016-10-24] MEDS: DAPTOMYCIN IV SCH (09:27)
--- NOTE | 2016-10-24 13:16 | PCM.PNMED ---
Subjective Date of Service Oct 24, 2016 Subjective No problems with chest pain or abdominal pain. No nausea or vomiting. No abdominal pain. Had a bowel movement yesterday. Exam Vital Signs Vital Sign - Last Date Time Temp Pulse Resp B/P Pulse Ox O2 Delivery O2 Flow Rate FiO2 10/24/16 12:43 36.6 83 22 96/52 97 Room Air 10/18/16 16:23 2.00 Intake and Output 10/23/16 10/23/16 10/24/16 Cumulative From/Thru 15:00 23:00 07:00 10/14/16 14:53 - 10/24/16 06:28 Intake Total 1005 ml 603 ml 19286 ml Output Total 425 ml 500 ml 13109 ml Balance 580 ml 103 ml 6695 ml Intake Oral 660 ml 537 ml 9368 ml IV Total 345 ml 66 ml 9942 ml Packed Cells 1310 ml Output Urine Total 425 ml 500 ml 9725 ml Emesis 0 ml Ultrafiltrate 4200 ml # Bowel Movements 22 Exam Alert oriented 3. Marked talkative today. Fluent speech. Anicteric sclerae. Neck supple Lungs are clear Heart is regular without murmur. Abdomen soft nondistended. Extremities are free of edema. IVs and Medications Medications Reviewed: Medications were reviewed in detail Lab and Diagnostics Result Diagram: 10/23/16 1038 10/24/16 0315 Microbiology UA: SG 1.020, protein 100 MG/DL, packed WBC, packed RBC, moderate bacteria Urine Culture pending Blood cultures pending X-Rays, CTs and MRIs PROCEDURE: CT ABDOMEN AND PELVIS WITHOUT CONTRAST ([id number]) IMPRESSION: 1. Decreased, mild bilateral hydronephrosis. Decreased bilateral ureteral dilatation. No urinary tract calcification. 2. Moderate diffuse urinary bladder wall thickening, suggestive of cystitis. Cystoscopy is recommended to exclude underlying neoplasm. 3. Presumed transitional cell carcinoma versus renal cell carcinoma within the left interpolar kidney is unchanged. 4. Bowel containing umbilical hernia without evidence of associated strangulation, nor obstruction. Dictated by: Maria Eugenia Ball M.D. on 10/14/2016 at 14:04 PROCEDURE: X-RAY CHEST ONE VIEW, PORTABLE ([id number]) IMPRESSION: No acute cardiopulmonary findings. Dictated by: Nathalia Ray M.D. on 10/14/2016 at 13:45 . Assessment & Plan 1. Acute kidney injury. The patient again appears to be not dramatically improving. His potassium is okay today. His creatinine is up. Anticipate consideration of a tunnel catheter unless he shows improvement over the next 24 hours. 2. MRSA urinary tract infection. Continue daptomycin for 14 days. 3. Diabetes mellitus 2, good control. No change in regimen. 4. Obstructive obstructive uropathy. Follow clinically Pain Evaluation: Adequate Pain Control VTE Prophylaxis: SCDs VTE Mechanical Devices: Intermittant Pneumatic CD Resuscitation Status: CPR: Attempt Resuscitation Time spent 25 minutes Oral Pineda MD Oct 24, 2016 13:16
[2016-10-24] MEDS ORDERED: Furosemide 10 mg/mL 10 mL Inj IVPUSH ONE (13:50)
--- NOTE | 2016-10-24 13:52 | PCM.PNMED ---
Subjective Date of Service Oct 24, 2016 Subjective The patient continues to do well his creatinine has risen to 5.8. He has had 725 ML's of urine out in the last 24 hours and is currently not on any diuretics. He denies any chest pain shortness of breath cough wheezing or nausea. Exam Vital Signs Vital Sign - Last Date Time Temp Pulse Resp B/P Pulse Ox O2 Delivery O2 Flow Rate FiO2 10/24/16 12:43 36.6 83 22 96/52 97 Room Air 10/18/16 16:23 2.00 Intake and Output 10/23/16 10/23/16 10/24/16 Cumulative From/Thru 15:00 23:00 07:00 10/14/16 14:53 - 10/24/16 06:28 Intake Total 1005 ml 603 ml 96738 ml Output Total 425 ml 500 ml 19748 ml Balance 580 ml 103 ml 6695 ml Intake Oral 660 ml 537 ml 9368 ml IV Total 345 ml 66 ml 9942 ml Packed Cells 1310 ml Output Urine Total 425 ml 500 ml 9725 ml Emesis 0 ml Ultrafiltrate 4200 ml # Bowel Movements 22 Exam Sclera are pale. Neck is supple without adenopathy thyromegaly or jugular venous distention. Lungs are clear to auscultation markedly diminished bilaterally because of poor inspiratory effort and body habitus. Heart was regular with soft systolic murmur. Abdomen soft without any tenderness or rebound guarding masses or hepatosplenomegaly. Extremities are transmitted clubbing cyanosis or edema. Skin turgor is good. Lab and Diagnostics Result Diagram: 10/23/16 1038 10/24/16 0315 Microbiology UA: SG 1.020, protein 100 MG/DL, packed WBC, packed RBC, moderate bacteria Urine Culture pending Blood cultures pending X-Rays, CTs and MRIs PROCEDURE: CT ABDOMEN AND PELVIS WITHOUT CONTRAST ([id number]) IMPRESSION: 1. Decreased, mild bilateral hydronephrosis. Decreased bilateral ureteral dilatation. No urinary tract calcification. 2. Moderate diffuse urinary bladder wall thickening, suggestive of cystitis. Cystoscopy is recommended to exclude underlying neoplasm. 3. Presumed transitional cell carcinoma versus renal cell carcinoma within the left interpolar kidney is unchanged. 4. Bowel containing umbilical hernia without evidence of associated strangulation, nor obstruction. Dictated by: Maria Eugenia Ball M.D. on 10/14/2016 at 14:04 PROCEDURE: X-RAY CHEST ONE VIEW, PORTABLE ([id number]) IMPRESSION: No acute cardiopulmonary findings. Dictated by: Nathalia Ray M.D. on 10/14/2016 at 13:45 . Assessment & Plan Impression #1 acute kidney injury versus end-stage renal disease #2 hypertension with hypertensive heart disease and hypertensive nephrosclerosis Recommendation #1 tried giving him intravenous Lasix 80 mg today and daily and see if this will help his renal function will improve if not in the next 1-[address] a tunnel catheter and switch him to permanent dialysis. VTE Prophylaxis: SCDs VTE Mechanical Devices: Intermittant Pneumatic CD Resuscitation Status: CPR: Attempt Resuscitation Tyler Santos DO Oct 24, 2016 13:52
--- NOTE | 2016-10-24 19:37 | NUR ---
Ambulation Pt. was OOB for lunch and sat in the chair inside his room for about 1hr. Pt. stated feeling tired and wanted to lay back down in bed. Pt. was educated on the importance of turning and moving in bed for his health, Pt. stated he understood. Pt. bottom looking a lot better than yesterday, I put calmoceptin cream today x2.
[2016-10-25] VITALS (7 sets, daily range): BP systolic 91–116; BP diastolic 50–59; PULSE 65–84; RESP 16–20; O2SAT 93–99
[2016-10-25] MEDS: Sodium Chloride LOK Flush 10 mL Syringe IVFLUSH SCH ×3 (00:17→16:30)
--- NOTE | 2016-10-25 05:06 | NUR ---
Turns/Urine Output/Home Meds Patient moving independently in bed; refusing assistance with turns. Watts continues to drain dark monica urine with sediment. Patient noted to have a ziploc bag of home medications on his bedside table; offered to lock the medications up for safe keeping until discharge and patient took the bag and stuffed it between his legs under the bed sheets. Refused to discuss the medications with nursing staff. Situation reported to charge nurse. Continue to monitor.
[2016-10-25 05:16] LABS: INR 1.03 ratio
[2016-10-25] MEDS: Insulin LISPRO 300 Unit/3 mL Inj SUBQ SCH ×4 (08:00→22:00)
[2016-10-25] MEDS: 0.9% Sodium Chloride 250 ML IV PRN (09:57)
--- NOTE | 2016-10-25 11:19 | PCM.PNMED ---
Subjective Date of Service Oct 25, 2016 Subjective He denies any problems overnight. He slept well and has good appetite. No nausea vomiting or abdominal pain. No chest pain cough or shortness of breath. Exam Vital Signs Vital Sign - Last Date Time Temp Pulse Resp B/P Pulse Ox O2 Delivery O2 Flow Rate FiO2 10/25/16 11:10 72 10/25/16 07:58 36.5 18 91/50 95 Room Air Intake and Output 10/24/16 10/24/16 10/25/16 Cumulative From/Thru 15:00 23:00 07:00 10/14/16 14:53 - 10/25/16 06:10 Intake Total 822 ml 419 ml 52235 ml Output Total 650 ml 600 ml 69414 ml Balance 172 ml -181 ml 6686 ml Intake Oral 620 ml 300 ml 56935 ml IV Total 202 ml 119 ml 50065 ml Packed Cells 1310 ml Output Urine Total 650 ml 600 ml 33942 ml Emesis 0 ml Ultrafiltrate 4200 ml # Bowel Movements 22 Exam Alert oriented 3, no distress. Flat affect. Anicteric sclerae. Neck supple. Lungs are clear, normal effort. Heart is regular without murmur. Abdomen is soft nondistended. Extremities are free of edema. IVs and Medications Medications Reviewed: Medications were reviewed in detail Lab and Diagnostics Result Diagram: 10/23/16 1038 10/25/16 0435 Microbiology UA: SG 1.020, protein 100 MG/DL, packed WBC, packed RBC, moderate bacteria Urine Culture pending Blood cultures pending X-Rays, CTs and MRIs PROCEDURE: CT ABDOMEN AND PELVIS WITHOUT CONTRAST ([id number]) IMPRESSION: 1. Decreased, mild bilateral hydronephrosis. Decreased bilateral ureteral dilatation. No urinary tract calcification. 2. Moderate diffuse urinary bladder wall thickening, suggestive of cystitis. Cystoscopy is recommended to exclude underlying neoplasm. 3. Presumed transitional cell carcinoma versus renal cell carcinoma within the left interpolar kidney is unchanged. 4. Bowel containing umbilical hernia without evidence of associated strangulation, nor obstruction. Dictated by: Maria Eugenia Ball M.D. on 10/14/2016 at 14:04 PROCEDURE: X-RAY CHEST ONE VIEW, PORTABLE ([id number]) IMPRESSION: No acute cardiopulmonary findings. Dictated by: Nathalia Ray M.D. on 10/14/2016 at 13:45 . Assessment & Plan 1. Acute kidney injury. The patient is showing no evidence of improvement. His creatinine is up today. Discussed with nephrology and we will move to place a tunneled dialysis catheter for ongoing dialysis over the next period of time. 2. MRSA urinary tract infection. Continue daptomycin for 14 days. We will discuss ways of this data can be continued if you are able to discharge next 1- 2 days after his dialysis catheter. 3. Diabetes mellitus 2, good control. No change in regimen. 4. Obstructive obstructive uropathy. Follow clinically Disposition will be contingent upon timing of tunneled catheter and daptomycin plan Pain Evaluation: Adequate Pain Control VTE Prophylaxis: SCDs VTE Mechanical Devices: Intermittant Pneumatic CD Resuscitation Status: CPR: Attempt Resuscitation Time spent 20 minutes Oral Pineda MD Oct 25, 2016 11:19
--- NOTE | 2016-10-25 11:39 | PROG NOTE ---
[address] [address] PROGRESS NOTE PATIENT: SUMAYA VASQUEZ : 1945 MR#: [id number] ADMIT: 10/14/2016 JOB ID: [id number] DATE: 10/25/2016 REASON FOR FOLLOW UP: A complex MRSA urinary tract infection in a patient with acute superimposed on chronic renal failure. INTERVAL HISTORY: The patient is much more alert, conversational and pleasant today. He reports he "feels fine." He states he just got breakfast which was not what he ordered, but nonetheless it was pretty good. He denies fevers, chills, or sweats. He has no respiratory complaints. No GI complaints. He has a Watts catheter, so of course, he has no acute urinary complaints. PHYSICAL EXAMINATION: Reveals a comfortable gentleman, whose temperature was reported at 38 degrees by the temporal route at 9 p.m. last night. Otherwise, however, he has been completely afebrile now for going on five days. His temperature now 36.5, pulse 84, respiratory rate 18, blood pressure 91/50, saturating 95% on room air. As mentioned, is alert, oriented and in no distress today. Oral cavity negative. Lungs fairly clear anteriorly. Cardiac tones without change. Abdomen soft and nontender. Watts catheter is present. No skin rash noted. LABORATORY STUDIES: White count includes 7400, platelets 177. Creatinine 7.49. Urinalysis was packed with white cells when he came in and, of course, grew MRSA. Serologies were of interest, include a positive hep B surface antigen, as well as a positive hep B core, which is indicative of prior infection. His hepatitis B surface antibody is negative, which would indicate he has not completely resolved the infection. Hep B, E antibody was checked and was positive, and I misdictated the other day and said that E antigen was positive, and it is important to note this was an E antibody rather than an E antigen, and I have ordered an E antigen today. Hep C is negative. HIV negative. C. diff was negative. Recall that his urine grew MRSA, which we are treating with daptomycin, and it is quite a sensitive organism with respect to daptomycin. Blood cultures, just one bottle, grew coag-negative Staph on admission. IMPRESSION: This has been a complex case of a gentleman with worsening renal failure, who has been on and off dialysis throughout his now 12-day hospital stay. The asp net developer spoke to me this morning about the need for a permanent dialysis catheter and I stated that would be okay as our only positive blood culture throughout this admission was a coag-negative Staph, which was almost certainly a contaminant and he has been on daptomycin therapy for about 10 days for his methicillin-resistant Staphylococcus aureus urinary tract infection. We have avoided vancomycin for the methicillin-resistant Staphylococcus aureus for fear of worsening his renal failure. RECOMMENDATIONS: 1. Will continue daptomycin for two weeks, which he basically takes this for about four more days this week. It can be continued to be dosed on a q.48 h. basis. 2. We await the quantitative hep B viral load as well as the hepatitis B, E antigen before we make a definitive decision on as to whether or not he needs chronic treatment for hepatitis B. 3. We should repeat a CPK at some point, given the patient's now prolonged treatment with daptomycin, and I have ordered that to be added on to today's labs.
--- NOTE | 2016-10-25 12:02 | PCM.PNMED ---
Subjective Date of Service Oct 25, 2016 Subjective no new complaint. Kidney function is again getting worse without HD. Exam Vital Signs Vital Sign - Last Date Time Temp Pulse Resp B/P Pulse Ox O2 Delivery O2 Flow Rate FiO2 10/25/16 11:10 72 10/25/16 07:58 36.5 18 91/50 95 Room Air Intake and Output 10/24/16 10/24/16 10/25/16 Cumulative From/Thru 15:00 23:00 07:00 10/14/16 14:53 - 10/25/16 06:10 Intake Total 822 ml 419 ml 29065 ml Output Total 650 ml 600 ml 97067 ml Balance 172 ml -181 ml 6686 ml Intake Oral 620 ml 300 ml 06506 ml IV Total 202 ml 119 ml 89818 ml Packed Cells 1310 ml Output Urine Total 650 ml 600 ml 94715 ml Emesis 0 ml Ultrafiltrate 4200 ml # Bowel Movements 22 Exam General appearance: AAOx3, NAD, answered questions appropriately today. HEENT: Mild pallor. No jaundice. No JVD. No lymphadenopathy. No thyroid enlargement. Dry mucosal membranes. Heart: Regular rhythm. Normal S1, S2. No murmurs, rubs, or gallops. Tachycardic. Lungs: Equal breath sounds bilaterally. No wheezing. No rhonchi. Abdomen: Soft, nontender, nondistended. No hepatosplenomegaly. Active bowel sounds. Extremity: No edema, cyanosis or clubbing. Skin: Multiple crusted papules and excoriations noted on upper extremity and lower extremities. : lees cath in place. Lab and Diagnostics Result Diagram: 10/23/16 1038 10/25/16 0435 Microbiology UA: SG 1.020, protein 100 MG/DL, packed WBC, packed RBC, moderate bacteria Urine Culture pending Blood cultures pending X-Rays, CTs and MRIs PROCEDURE: CT ABDOMEN AND PELVIS WITHOUT CONTRAST ([id number]) IMPRESSION: 1. Decreased, mild bilateral hydronephrosis. Decreased bilateral ureteral dilatation. No urinary tract calcification. 2. Moderate diffuse urinary bladder wall thickening, suggestive of cystitis. Cystoscopy is recommended to exclude underlying neoplasm. 3. Presumed transitional cell carcinoma versus renal cell carcinoma within the left interpolar kidney is unchanged. 4. Bowel containing umbilical hernia without evidence of associated strangulation, nor obstruction. Dictated by: Maria Eugenia Ball M.D. on 10/14/2016 at 14:04 PROCEDURE: X-RAY CHEST ONE VIEW, PORTABLE ([id number]) IMPRESSION: No acute cardiopulmonary findings. Dictated by: Nathalia Ray M.D. on 10/14/2016 at 13:45 . Assessment & Plan 1. ESRD now declared. 2. Sepsis. 3. MRSA UTI. 4. Hep B infection: (+) HBs Ag, HBe Ab, and HBcore Ab. 5. Anemia of CKD and acute blood loss s/p blood transfusion. 6. Left renal mass. Rule out renal cell carcinoma and transitional cell carcinoma. 7. History of obstructive uropathy status post cystoscopy and urethral dilatation. 8. Renal osteodystrophy Plan: Tunneled cath placement in am. 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 SW consult for arrangement of OP HD. add nephrovite today. VTE Prophylaxis: SCDs VTE Mechanical Devices: Intermittant Pneumatic CD Resuscitation Status: CPR: Attempt Resuscitation Edgar De La Rosa MD Oct 25, 2016 12:02
[2016-10-25] MEDS: Vitamin B Complex/Vit C Tablet PO SCH (13:18)
--- NOTE | 2016-10-25 19:26 | NUR ---
Ambulation/Home Medications Pt. has been up OOB this morning in chair eating breakfast. PT came in and worked with Pt. and had him walk around the room, see PT for note. Pt. also had a BM in the bathroom and per Pt. it was large and formed. Pt. has had no c/o pain, SOB, nausea, and vomiting on shift. Pt. has home meds. in a white plastic bag and when I asked the Pt. if i could take them and store them safely away Pt. said "No I want to keep them in the room with me and I promise not to take any of them. I just wanted to show the doctor my home med."
[2016-10-25] MEDS: Insulin GLARgine 100 Unit/mL Syringe SUBQ SCH (20:58)
[2016-10-26] VITALS (7 sets, daily range): BP systolic 93–131; BP diastolic 50–71; PULSE 68–89; RESP 18–22; O2SAT 94–98
[2016-10-26] MEDS: Sodium Chloride LOK Flush 10 mL Syringe IVFLUSH SCH ×3 (00:30→16:30)
[2016-10-26 04:31] LABS: BASOPHILS % (AUTO) 0.8 % (0-3); EOSINOPHILS % (AUTO) 4.1 % (0-5); MONOCYTES % (AUTO) 9.8 % (4-12); Mean Corpuscular Volume 94.8 fL (81-100); NEUTROPHILS % (AUTO) 55.5 % (40-74); Platelet Count 198 bil/L (150-400)
[2016-10-26 04:57] LABS: Phosphorus 4.3 mg/dL (2.5-4.9)
--- NOTE | 2016-10-26 05:55 | NUR ---
Activity Pt moving somewhat in bed independently, declining help with turns. Pt denies pain, SOB or CP. Pt remains systolically in the 90's for BP, with no reports of dizziness or lightheadedness. Pt has been NPO since midnight for tunnel cath placement for dialysis today.
[2016-10-26] MEDS: Vitamin B Complex/Vit C Tablet PO SCH (07:19)
[2016-10-26] MEDS: Insulin LISPRO 300 Unit/3 mL Inj SUBQ SCH ×4 (07:48→22:00)
--- NOTE | 2016-10-26 11:13 | PROG NOTE ---
[address] [address] PROGRESS NOTE PATIENT: SUMAYA VASQUEZ : 1945 MR#: [id number] ADMIT: 10/14/2016 JOB ID: [id number] DATE: 10/26/2016 INFECTIOUS DISEASE FOLLOWUP NOTE: REASON FOR FOLLOWUP: Complicated MRSA urinary tract infection in a patient with progressive renal failure. INTERVAL HISTORY: The patient reports he is angry today because he has not had breakfast. He is scheduled for placement of a permanent dialysis catheter and that is the reason for his n.p.o. status. Aside from being hungry, he denies any other complaint including fevers, chills, sweats, cough, nausea, vomiting, or diarrhea. The patient continues to produce excellent amounts of urine through a Watts catheter. PHYSICAL EXAMINATION: Reveals a somewhat grumpy but otherwise comfortable gentleman. Temp 36.9, he is afebrile, pulse 74, respiratory rate 18, blood pressure 100/53, saturating well on room air. Oral cavity unremarkable. Lungs quite clear anteriorly. Abdomen soft and nontender. Watts catheter is present. No new skin rash noted. LABORATORIES: Include a white count of 7100. Creatinine of 8.23, which continues to increase. Micro without any new positives. Recall that his urine grew MRSA and blood grew a coag-negative staph in one bottle, likely a contaminant. IMAGING: No new chest x-rays have been done. IMPRESSION: This patient appears to be doing well from an overall point of view, even as his renal failure, unfortunately, worsens. At this point, the patient is certainly cleared to go ahead and have a dialysis catheter and any procedures he needs, as we have no evidence for ongoing infection and bacteremia. We are continuing to treat his methicillin-resistant Staphylococcus aureus urinary tract infection and nearing the end of that therapy. RECOMMENDATIONS: 1. Continue with daptomycin through this week and will discontinue. It is renally adjusted. 2. The patient also has hepatitis B, and we are awaiting the hepatitis B viral load, as well as the hepatitis B e antigen. Both of these studies should be available within the next day or so and allow us to make a decision. 3. This case discussed at the bedside with the nephrology sap solution manager consultant today.
--- NOTE | 2016-10-26 12:42 | PCM.PNMED ---
Subjective Date of Service Oct 26, 2016 Subjective NPO after tunneled cath placement. He is upset about being NPO. Refused to answer any question. Exam Vital Signs Vital Sign - Last Date Time Temp Pulse Resp B/P Pulse Ox O2 Delivery O2 Flow Rate FiO2 10/26/16 12:10 37.0 75 19 95/58 97 Room Air Intake and Output 10/25/16 10/25/16 10/26/16 Cumulative From/Thru 15:00 23:00 07:00 10/14/16 14:53 - 10/26/16 05:53 Intake Total 772 ml 355 ml 09335 ml Output Total 550 ml 600 ml 73641 ml Balance 222 ml -245 ml 6663 ml Intake Oral 655 ml 355 ml 39899 ml IV Total 117 ml 86145 ml Packed Cells 1310 ml Output Urine Total 550 ml 600 ml 42268 ml Emesis 0 ml Ultrafiltrate 4200 ml # Bowel Movements 1 0 23 Exam General appearance: NAD. Lying in bed comfortably. HEENT: Mild pallor. No jaundice. No JVD. No lymphadenopathy. No thyroid enlargement. Dry mucosal membranes. Heart: Regular rhythm. Normal S1, S2. No murmurs, rubs, or gallops. Tachycardic. Lungs: Equal breath sounds bilaterally. No wheezing. No rhonchi. Abdomen: Soft, nontender, nondistended. No hepatosplenomegaly. Active bowel sounds. Extremity: No edema, cyanosis or clubbing. : lees cath in place. Lab and Diagnostics Result Diagram: 10/26/16 0345 10/26/16 0345 Microbiology UA: SG 1.020, protein 100 MG/DL, packed WBC, packed RBC, moderate bacteria Urine Culture pending Blood cultures pending X-Rays, CTs and MRIs PROCEDURE: CT ABDOMEN AND PELVIS WITHOUT CONTRAST ([id number]) IMPRESSION: 1. Decreased, mild bilateral hydronephrosis. Decreased bilateral ureteral dilatation. No urinary tract calcification. 2. Moderate diffuse urinary bladder wall thickening, suggestive of cystitis. Cystoscopy is recommended to exclude underlying neoplasm. 3. Presumed transitional cell carcinoma versus renal cell carcinoma within the left interpolar kidney is unchanged. 4. Bowel containing umbilical hernia without evidence of associated strangulation, nor obstruction. Dictated by: Maria Eugenia Ball M.D. on 10/14/2016 at 14:04 PROCEDURE: X-RAY CHEST ONE VIEW, PORTABLE ([id number]) IMPRESSION: No acute cardiopulmonary findings. Dictated by: Nathalia Ray M.D. on 10/14/2016 at 13:45 . Assessment & Plan 1. ESRD now declared. 2. Sepsis. 3. MRSA UTI. 4. Hep B infection: (+) HBs Ag, HBe Ab, and HBcore Ab. 5. Anemia of CKD and acute blood loss s/p blood transfusion. 6. Left renal mass. Rule out renal cell carcinoma and transitional cell carcinoma. 7. History of obstructive uropathy status post cystoscopy and urethral dilatation. 8. Renal osteodystrophy Plan: Tunneled cath placement today, HD afterwards. Per renal, pt can be d/c'd once outpatient HD set up. VTE Prophylaxis: SCDs VTE Mechanical Devices: Intermittant Pneumatic CD Resuscitation Status: CPR: Attempt Resuscitation Edgar De La Rosa MD Oct 26, 2016 12:41
--- NOTE | 2016-10-26 13:16 | NUR ---
NUTRITION FOLLOW-UP Assess: 71 YO M admitted with sepsis, renal failure. Pt is NPO today for tunneled cath placement due to new ESRD. Pt is to have HD after cath placement. PO prior to NPO status was good at 100% most meals. PMHX: Obstructive uropathy w/ urinary infection, CKD, Left renal mass, type 2 DM, obesity. DIET: Renal. PO intake 100% of most meals LABS: Reviewed. K 5.3, Bun 66, Desktop Manager 8.23, Glu 117, Ca 8.1, Alb 2.5 MEDICATIONS: Reviewed. Insulin, Tums, PhosLo GI: BM x1 10/25 SKIN: Wounds on pannus and buttocks d/t moisture and incontinence WEIGHT: 143.8 kg, BMI 43 kg/m2, Admit wt: 133.5 kg, IBW: 80.9 kg, Adj. BW 94.2 kg. ESTIMATED NEEDS: BMI/DIALYSIS Calories: 3292-8333 kcal/day (30-35 kcal/kg Adj. BW) Protein: 110-185 g/day (1.2-2.0 g/kg Adj. BW) NUTRITION DIAGNOSIS: 1) Increased nutrient needs related to increased demand for nutrients as evidenced by GIGI on CKD, need for dialysis.--PERSISTS INTERVENTION: 1) Advance diet when medically appropriate 2) Continue Nepro at Breakfast MONITOR/EVALUATE: PO intake, diet tolerance, labs, GI/nutrition status. Follow per moderate nutrition risk guidelines.
[2016-10-26] MEDS ORDERED: Heparin 5,000 Units/500 mL NS Premix IV ONE (13:51)
[2016-10-26] MEDS ORDERED: Heparin 1,000 Unit/mL 10 mL Inj ONE (13:51)
[2016-10-26] MEDS ORDERED: fentaNYL-PF 50 mCg/mL 2 mL Inj ONE (13:54)
[2016-10-26] MEDS ORDERED: 0.9% Sodium Chloride 500 ML ONE (13:55)
--- NOTE | 2016-10-26 14:39 | PCM.PNMED ---
Subjective Date of Service Oct 26, 2016 Subjective He is doing well. He is hungry. He is waiting for tunnel catheter which is not going to happen until 2 PM. He denies any chest pain cough or shortness of breath. No abdominal pain. He is going to the bathroom without difficulty. Exam Vital Signs Vital Sign - Last Date Time Temp Pulse Resp B/P Pulse Ox O2 Delivery O2 Flow Rate FiO2 10/26/16 12:10 37.0 75 19 95/58 97 Room Air Intake and Output 10/25/16 10/25/16 10/26/16 Cumulative From/Thru 15:00 23:00 07:00 10/14/16 14:53 - 10/26/16 05:53 Intake Total 772 ml 355 ml 06801 ml Output Total 550 ml 600 ml 72796 ml Balance 222 ml -245 ml 6663 ml Intake Oral 655 ml 355 ml 21311 ml IV Total 117 ml 37534 ml Packed Cells 1310 ml Output Urine Total 550 ml 600 ml 74548 ml Emesis 0 ml Ultrafiltrate 4200 ml # Bowel Movements 1 0 23 Exam Alert oriented 3, flat affect. No distress. Anicteric sclerae. Lungs are clear with normal effort. Heart is regular without murmur gallop or rub Abdomen soft. Extremities are free of edema and pedal pulses. IVs and Medications Medications Reviewed: Medications were reviewed in detail Lab and Diagnostics Result Diagram: 10/26/1634410/26/16344 Microbiology UA: SG 1.020, protein 100 MG/DL, packed WBC, packed RBC, moderate bacteria Urine Culture pending Blood cultures pending X-Rays, CTs and MRIs PROCEDURE: CT ABDOMEN AND PELVIS WITHOUT CONTRAST ([id number]) IMPRESSION: 1. Decreased, mild bilateral hydronephrosis. Decreased bilateral ureteral dilatation. No urinary tract calcification. 2. Moderate diffuse urinary bladder wall thickening, suggestive of cystitis. Cystoscopy is recommended to exclude underlying neoplasm. 3. Presumed transitional cell carcinoma versus renal cell carcinoma within the left interpolar kidney is unchanged. 4. Bowel containing umbilical hernia without evidence of associated strangulation, nor obstruction. Dictated by: Maria Eugenia Ball M.D. on 10/14/2016 at 14:04 PROCEDURE: X-RAY CHEST ONE VIEW, PORTABLE ([id number]) IMPRESSION: No acute cardiopulmonary findings. Dictated by: Nathalia Ray M.D. on 10/14/2016 at 13:45 . Assessment & Plan 1. ESRD now declared. The patient will receive a tunnel catheter today. We will begin setting him up for outpatient dialysis. He has had hepatitis B which creates a difficulty in scheduling and how to deal with him with regards to the outpatient dialysis. This is further being explored by child protective services social worker. He will have tunneled catheter and then dialysis later today. 2. Sepsis. Resolved. 3. MRSA UTI. Daptomycin for a total of 14 days. 4. Hep B infection: (+) HBs Ag, HBe Ab, and HBcore Ab. We will discuss treatment plan with Dr. Lopez. 5. Anemia of CKD and acute blood loss s/p blood transfusion. 6. Left renal mass. Rule out renal cell carcinoma and transitional cell carcinoma. 7. Diabetes mellitus 2. Well controlled. No change to current regimen. 8. Hyperkalemia today. The patient will have dialysis today after catheter placement. Disposition will be contingent upon the initiation of outpatient dialysis which will be the rate limiting step for this patient given his need for dialysis. Pain Evaluation: Adequate Pain Control VTE Prophylaxis: SCDs VTE Mechanical Devices: Intermittant Pneumatic CD Resuscitation Status: CPR: Attempt Resuscitation Time spent 25 minutes Oral Pineda MD Oct 26, 2016 14:39
--- NOTE | 2016-10-26 15:06 | DRSVH ---
PROCEDURE: CV TUNNEL CATH PLCMNT 1. Sonographic guidance for venous access. 2. Conscious sedation for 48 minutes. 3. Left internal jugular vein tunneled hemodialysis catheter placement. 4. Fluoroscopic guidance for catheter placement. INDICATIONS: ESRD TECHNIQUE: The indications, alternatives, benefits, risks, and complications of the procedure were e xplained to the patient and any family members present. Informed written consent was obtained and pl aced in the chart. The patient was brought to the angiography suite, and conscious sedation was admi nistered intravenously by [facility] staff, while continuous cardiorespiratory monitoring was pe rformed. Maximum sterile barrier technique was employed per standard protocol, including hand hygiene, cap, ma sk, sterile gown and gloves, and 2% chlorhexidine. Sterile ultrasound probe cover was also utilized. 1% lidocaine was used for local anaesthesia. Under sonographic guidance, the left internal jugular v ein was accessed with a Micropuncture set. An 0.035J wire was advanced into the vena cava. Subcutan eous tunnel was created within the left anterior chest wall, through which a 14.5 Irish double lumen tunneled hemodialysis catheter was advanced. Following sequential venotomy tract dilation, the cath eter was advanced through the peel-away sheath and the tip was placed at the cavoatrial junction. Pe el-away sheath was removed. Adequate flow was obtained through both lumens of the catheter. The elies otomy was closed with Vicryl, and the catheter was fastened to the skin with Ticron. Both lumens wer e flushed with heparinized saline. The patient tolerated the procedure without difficulty and was in stable condition at the conclusion of the procedure. COMPARISON: None. FINDINGS: The left internal jugular vein is patent by ultrasound. Fluoroscopic imaging demonstrates tip of the catheter at the cavoatrial junction. IMPRESSION: Left internal jugular vein tunneled hemodialysis catheter placement using sonographic and fluoroscopi c guidance. Dictated by: Maria Eugenia Ball M.D. on 10/26/2016 at 15:04 Approved by: Maria Eugenia Ball M.D. on 10/26/2016 at 15:05
--- NOTE | 2016-10-26 16:14 | NUR ---
Social Work Note: Continued Discharge Planning Data& Assessment: SW received phone call from [facility] regarding pt being established for dialysis at their center. Due to pt medical diagnosis, pt will require isolated dialysis treatments and this will require some time to organize and set up. SW to check in with [facility] Patient Coordinator (ext. [phone]) regarding progress toward establishing pt as a pt with them tomorrow 10/26/2016. MD notified and aware that this could serve as a barrier to DC in the next 1-2 days if pt becomes medically ready. SW to continue to follow. Plan: Anticipated home with [facility] and PT when medically ready and new HD at [facility] in process of establishing pt with their center. SW to continue to follow. ROSY Renee
--- NOTE | 2016-10-26 16:18 | NUR ---
BP/Tunnel Cath Pt BPs continue in the 90s/50s, pt denies dizziness/lightheadedness. Refused turns, shifts weight in bed periodically. Off unit to manager labor relations at 1400 for dialysis cath placement, went straight to [facility] for HD afterward. Pt expected back from dialysis at aprox 1800.
--- NOTE | 2016-10-26 19:00 | NUR ---
Dialysis note: S/P catheter placement. 3 1/2 hrs tx. 600 ml net UF. Left catheter, dsg changed, sutures intact. Pls see DTR for VS details. Qb 350 with catheter limbs reversed A-V V-A due to poor catheter function. Heparin prime given. O2 @ 2L via NC on. Tolerated tx, slept at intervals. Catheter flushed, heparin dwelled and secured. Report given to Laney Navarro RN. Transferred back to patient's room in stable condition.
[2016-10-26] MEDS: Insulin GLARgine 100 Unit/mL Syringe SUBQ SCH (20:14)
[2016-10-26] MEDS: SODIUM CHLORIDE 0.9% IV SCH (21:01)
[2016-10-26] MEDS: DAPTOMYCIN IV SCH (21:01)
[2016-10-27] MEDS: Sodium Chloride LOK Flush 10 mL Syringe IVFLUSH SCH ×3 (00:30→18:03)
[2016-10-27 00:43] VITALS: BP 88/49; PULSE 77; RESP 20; O2SAT 92
[2016-10-27 04:58] VITALS: BP 94/54; PULSE 74; RESP 20; O2SAT 95
--- NOTE | 2016-10-27 06:05 | NUR ---
Skin care pt arrived to floor from dialysis at 1930. pt alert and oriented denies n/v/d and gi upset. Patient agreeable to turning and receiving skin care to bottom. No s/sx of hypo/hyperglycemia noted. VSS patient is not on tele.
[2016-10-27] MEDS: Insulin LISPRO 300 Unit/3 mL Inj SUBQ SCH ×4 (08:00→21:09)
[2016-10-27] MEDS ORDERED: Darbepoetin Alfa 60 mCg/0.3 mL Inj SUBQ ONE (08:00)
[2016-10-27 08:24] VITALS: BP 96/54; PULSE 76; RESP 16; O2SAT 98
[2016-10-27] MEDS: Vitamin B Complex/Vit C Tablet PO SCH (08:29)
[2016-10-27 11:51] VITALS: BP 94/55; PULSE 78; RESP 20; O2SAT 95
--- NOTE | 2016-10-27 12:10 | PCM.PNMED ---
Subjective Date of Service Oct 27, 2016 Subjective s/p tunneled cath placement. HD yesterday, hypotensive noted during the treatment but asymptomatic. Exam Vital Signs Vital Sign - Last Date Time Temp Pulse Resp B/P Pulse Ox O2 Delivery O2 Flow Rate FiO2 10/27/16 11:51 36.8 78 20 94/55 95 Room Air Intake and Output 10/26/16 10/26/16 10/27/16 Cumulative From/Thru 15:00 23:00 07:00 10/14/16 14:53 - 10/27/16 06:54 Intake Total 125 ml 300 ml 875 ml 11992 ml Output Total 1500 ml 300 ml 31996 ml Balance 125 ml -1200 ml 575 ml 6163 ml Intake Oral 300 ml 800 ml 35831 ml IV Total 125 ml 75 ml 35571 ml Packed Cells 1310 ml Output Urine Total 900 ml 300 ml 26164 ml Emesis 0 ml Ultrafiltrate 600 ml 4800 ml # Bowel Movements 23 Exam General appearance: NAD. Lying in bed comfortably. HEENT: Mild pallor. No jaundice. No JVD. No lymphadenopathy. No thyroid enlargement. Dry mucosal membranes. Heart: Regular rhythm. Normal S1, S2. No murmurs, rubs, or gallops. Tachycardic. Lungs: Equal breath sounds bilaterally. No wheezing. No rhonchi. Abdomen: Soft, nontender, nondistended. No hepatosplenomegaly. Active bowel sounds. Extremity: No edema, cyanosis or clubbing. : lees cath in place. Skin: left tunneled cath in place. Lab and Diagnostics Result Diagram: 10/26/1634410/26/16 034 Microbiology UA: SG 1.020, protein 100 MG/DL, packed WBC, packed RBC, moderate bacteria Urine Culture pending Blood cultures pending X-Rays, CTs and MRIs PROCEDURE: CT ABDOMEN AND PELVIS WITHOUT CONTRAST ([id number]) IMPRESSION: 1. Decreased, mild bilateral hydronephrosis. Decreased bilateral ureteral dilatation. No urinary tract calcification. 2. Moderate diffuse urinary bladder wall thickening, suggestive of cystitis. Cystoscopy is recommended to exclude underlying neoplasm. 3. Presumed transitional cell carcinoma versus renal cell carcinoma within the left interpolar kidney is unchanged. 4. Bowel containing umbilical hernia without evidence of associated strangulation, nor obstruction. Dictated by: Maria Eugenia Ball M.D. on 10/14/2016 at 14:04 PROCEDURE: X-RAY CHEST ONE VIEW, PORTABLE ([id number]) IMPRESSION: No acute cardiopulmonary findings. Dictated by: Nathalia Ray M.D. on 10/14/2016 at 13:45 . Assessment & Plan 1. ESRD now declared. s/p tunneled cath placement. 2. Sepsis. 3. MRSA UTI. 4. Hep B infection: (+) HBs Ag, HBcore Ab, HBe Ab (-) HBe Ag pending HBV DNA viral load. 5. Anemia of CKD and acute blood loss s/p blood transfusion and aranesp injection. 6. Left renal mass. Rule out renal cell carcinoma and transitional cell carcinoma. 7. History of obstructive uropathy status post cystoscopy and urethral dilatation. 8. Renal osteodystrophy Plan: HD Q TTS, 4 hr, UF as tolerated. pending HBV DNA viral load. d/c home once OP HD arranged. VTE Prophylaxis: SCDs VTE Mechanical Devices: Intermittant Pneumatic CD Resuscitation Status: CPR: Attempt Resuscitation Edgar De La Rosa MD Oct 27, 2016 12:10
--- NOTE | 2016-10-27 13:21 | PCM.PNMED ---
Subjective Date of Service Oct 27, 2016 Subjective He is doing well. He slept well. Normal appetite. No dyspnea. No chest or abdominal pain. Exam Vital Signs Vital Sign - Last Date Time Temp Pulse Resp B/P Pulse Ox O2 Delivery O2 Flow Rate FiO2 10/27/16 11:51 36.8 78 20 94/55 95 Room Air Intake and Output 10/26/16 10/26/16 10/27/16 Cumulative From/Thru 15:00 23:00 07:00 10/14/16 14:53 - 10/27/16 06:54 Intake Total 125 ml 300 ml 875 ml 98253 ml Output Total 1500 ml 300 ml 93268 ml Balance 125 ml -1200 ml 575 ml 6163 ml Intake Oral 300 ml 800 ml 86732 ml IV Total 125 ml 75 ml 14063 ml Packed Cells 1310 ml Output Urine Total 900 ml 300 ml 12358 ml Emesis 0 ml Ultrafiltrate 600 ml 4800 ml # Bowel Movements 23 Exam Neuro oriented 3, slow to speak. Anicteric sclerae. Neck supple. Lungs are clear, normal left and right. Heart is regular, no murmur. Abdomen is soft. Extremities are with 1+ edema good pedal pulses IVs and Medications Medications Reviewed: Medications were reviewed in detail Lab and Diagnostics Result Diagram: 10/26/1634410/26/16344 Microbiology UA: SG 1.020, protein 100 MG/DL, packed WBC, packed RBC, moderate bacteria Urine Culture pending Blood cultures pending X-Rays, CTs and MRIs PROCEDURE: CT ABDOMEN AND PELVIS WITHOUT CONTRAST ([id number]) IMPRESSION: 1. Decreased, mild bilateral hydronephrosis. Decreased bilateral ureteral dilatation. No urinary tract calcification. 2. Moderate diffuse urinary bladder wall thickening, suggestive of cystitis. Cystoscopy is recommended to exclude underlying neoplasm. 3. Presumed transitional cell carcinoma versus renal cell carcinoma within the left interpolar kidney is unchanged. 4. Bowel containing umbilical hernia without evidence of associated strangulation, nor obstruction. Dictated by: Maria Eugenia Ball M.D. on 10/14/2016 at 14:04 PROCEDURE: X-RAY CHEST ONE VIEW, PORTABLE ([id number]) IMPRESSION: No acute cardiopulmonary findings. Dictated by: Nathalia Ray M.D. on 10/14/2016 at 13:45 . Assessment & Plan 1. ESRD now declared. Patient had a tunneled catheter placed yesterday. He is being set up for outpatient dialysis. It requires some rearrangement because his hepatitis B status. This is the barrier to discharge. 2. Sepsis. Resolved. 3. MRSA UTI. Daptomycin for a total of 14 days. The last day should be October 30. Confirm with infectious disease. 4. Hep B infection: (+) HBs Ag, HBe Ab, and HBcore Ab. We will discuss treatment plan with Dr. Lopez. 5. Anemia of CKD and a s/p blood transfusion. 6. Left renal mass. This is being followed by nephrology. 7. Diabetes mellitus 2. Well controlled. No change to current regimen. 8. Hyperkalemia yesterday. This resolved with dialysis and will be managed with ongoing dialysis. The patient will be dischargeable to halfway facility when his outpatient dialysis plan is outlined and ready to go. Pain Evaluation: Adequate Pain Control VTE Prophylaxis: SCDs VTE Mechanical Devices: Intermittant Pneumatic CD Resuscitation Status: CPR: Attempt Resuscitation Time spent 25 minutes Oral Pineda MD Oct 27, 2016 13:21
[2016-10-27 16:19] VITALS: BP 102/58; PULSE 86; RESP 20; O2SAT 94
--- NOTE | 2016-10-27 17:32 | NUR ---
Social Work Note: Readiness for Discharge Data& Assessment: Pt is not medically ready for discharge at this time. Pt dialysis is still being arranged at [facility]. SW met with pt at bedside to confirm discharge plan and assess for any unmet needs. PT is still recommending pt return home with home health PT. SW confirmed plan for pt to discharge home via POV with [facility]. Pt denies any other needs at this time. SW to continue to follow if any needs arise. Plan: Pt to discharge home via POV with [facility] RN and his livestock trader. SW to follow up with [facility] regarding pt finalized establishment for dialysis. Pt denies any other needs at this time. SW to continue to follow if any needs arise. ROSY Renee
--- NOTE | 2016-10-27 18:31 | NUR ---
Skin/Q2 turns/Mentation Patient alert and oriented x3 throughout shift, RIOS, however he is forgetful and frequently asks RN to repeat question. Per WET PLANT OPERATOR who has worked with this patient since his admit, his skin looks to be improving with a decrease in open areas and redness -- 3 in 1 barrier wipes with karen applied per wound care instructions. Patient can boost self in bed and does have some bed mobility -- will turn on side for care but refuses to remain on side despite education and encouragement. Per PT, he has also refused PT. Tolerating PO intake well, no pain, no n/v/d/c, RA.
[2016-10-27 21:02] VITALS: BP 101/61; PULSE 89; RESP 24; O2SAT 96
[2016-10-27] MEDS: Insulin GLARgine 100 Unit/mL Syringe SUBQ SCH (21:08)
[2016-10-28] VITALS (9 sets, daily range): BP systolic 84–104; BP diastolic 45–56; PULSE 71–82; RESP 16–20; O2SAT 94–98
[2016-10-28] MEDS: Sodium Chloride LOK Flush 10 mL Syringe IVFLUSH SCH ×4 (00:50→20:38)
[2016-10-28 03:54] LABS: BASOPHILS % (AUTO) 0.7 % (0-3); EOSINOPHILS % (AUTO) 4.4 % (0-5); Mean Corpuscular Hemoglobin 30.2 pg (27.0-35.0); Mean Corpuscular Volume 96.5 fL (81-100); NEUTROPHILS % (AUTO) 43.8 % (40-74); Platelet Count 188 bil/L (150-400)
[2016-10-28 04:21] LABS: Phosphorus 3.2 mg/dL (2.5-4.9)
--- NOTE | 2016-10-28 06:12 | NUR ---
Skin care/Turns Applied calmoseptine to bottom with continued monitoring of skin tears. No drainage noted. Open areas appearing red in color. Bottom discolored without redness. Pt refused Q2 turns, but agreeable to turns x 3 this shift for skin integrity and comfort. VSS Pt no longer on tele.
[2016-10-28] MEDS: Insulin LISPRO 300 Unit/3 mL Inj SUBQ SCH ×4 (08:00→20:31)
[2016-10-28] MEDS: Vitamin B Complex/Vit C Tablet PO SCH (08:14)
[2016-10-28] MEDS: 0.9% Sodium Chloride 250 ML IV SCH (08:22)
[2016-10-28] MEDS: DAPTOMYCIN IV SCH ×2 (08:30→15:01)
[2016-10-28] MEDS: SODIUM CHLORIDE 0.9% IV SCH ×2 (08:30→15:01)
--- NOTE | 2016-10-28 09:49 | NUR ---
Dialysis Pt. left room 2028 PCC to room 244 MO for dialysis. Pt. VS stable and no insulin was given due to blood glucose level 90. Pt. ate his breakfast on the sofa in the room. Pt. compliant with care, transfer report give to RN on MOC. Addendum: 10/28/16 at 1816 by DUNG DUMONT RN Pt. returned back from dialysis to room 2028 PCC. Pt. does not c/o pain, SOB, or CP. Pt. has been bed rest since his arrival and has chosen no to get up this afternoon. Pt. had his nabeel DC'd this afternoon as well per doctor order. Pt. has not voided yet but is reminded to use call light for assistance onto BSC to void. Pt. is talking to a visitor at this time.
--- NOTE | 2016-10-28 10:47 | NUR ---
pt arrived to [facility] for DIALYSIS at 0945 report received from primary PCC RN (FILEMON) tele manager monitoring informed of temp room location pt alert, cooperative and appropriate prep person at bedside
--- NOTE | 2016-10-28 12:14 | PROG NOTE ---
[address] [address] PROGRESS NOTE PATIENT: SUMAYA VASQUEZ : 1945 MR#: [id number] ADMIT: 10/14/2016 JOB ID: [id number] DATE: 10/28/2016 INFECTIOUS DISEASE FOLLOWUP NOTE: REASON FOR FOLLOWUP: Hepatitis B plus severe complicated MRSA UTI. INTERVAL HISTORY: The patient is on dialysis today when I saw him, and he is quite comfortable. He denies any fevers, chills, and sweats. There are no problems with his new dialysis catheter. He denies cough or shortness of breath. No belly pain. He reports he is about ready to go home, he thinks, once his dialysis situation is stabilized. PHYSICAL EXAMINATION: Reveals an afebrile gentleman, 36.8 temp, pulse 75, blood pressure 89/50, saturating 96% on room air. Mental status: Sharp. Oral cavity negative. Lungs: Relatively clear. A few crackles at the base. Abdomen benign. The dialysis catheter appears uninfected. LABORATORIES: Include a white count of 5700. Creatinine 7.05. The hepatitis B profile is finally completely done. Recall this patient's hepatitis B surface antigen positive, his hepatitis B e antigen is negative and his hepatitis B e antibody is positive. His hepatitis B viral load has come back at 200, which is extremely low. HIV is negative. Hep C is negative. Micro studies include the MRSA which grew in the urine which was daptomycin susceptible. We used daptomycin instead of vancomycin to try and preserve his renal function but that has apparently failed, as he appears to be a long-term dialysis patient at this point. IMPRESSION: This patient is now being established on long-term dialysis, as his kidneys failed to improve after a period of longstanding decline and then a sudden worsening here at the end. He had a high-grade methicillin-resistant Staphylococcus aureus urinary tract infection, which was quite complex, and he was very toxic when he first was admitted but at this point, that infection has essentially resolved. His hepatitis B does not need treatment, as he has a very low viral load, but he will continue to need a separate hepatitis B dialysis designated machine. Should he receive chemotherapy or high-dose steroids or tumor necrosis factor inhibitors, it would be prudent to place him on hepatitis B therapy. Right now, there is no indication for treatment. PLAN: 1. Will continue the daptomycin over the next 48 hours on a q.48 h. dosing and then it can be stopped, and I would consider his MRSA UTI resolved. 2. He does not need any treatment for hepatitis B at this time, though if he were to become more immunosuppressed that might be indicated. 3. This case was discussed with nephrology consultant nurse today. 4. Infectious Disease will go ahead and sign off at this time. Thank you very much for this consult.
--- NOTE | 2016-10-28 12:47 | PCM.PNMED ---
Subjective Date of Service Oct 28, 2016 Subjective Pt is seen during HD, no new complaints. Exam Vital Signs Vital Sign - Last Date Time Temp Pulse Resp B/P Pulse Ox O2 Delivery O2 Flow Rate FiO2 10/28/16 11:15 36.0 75 20 86/51 10/28/16 08:05 96 Room Air Intake and Output 10/27/16 10/27/16 10/28/16 Cumulative From/Thru 15:00 23:00 07:00 10/14/16 14:53 - 10/28/16 06:59 Intake Total 1680 ml 400 ml 07276 ml Output Total 750 ml 700 ml 85343 ml Balance 930 ml -300 ml 6793 ml Intake Oral 1680 ml 400 ml 45497 ml IV Total 92435 ml Packed Cells 1310 ml Output Urine Total 750 ml 700 ml 07286 ml Emesis 0 ml Ultrafiltrate 4800 ml # Bowel Movements 23 Exam General appearance: NAD. Lying in bed comfortably. HEENT: Mild pallor. No jaundice. No JVD. No lymphadenopathy. No thyroid enlargement. Dry mucosal membranes. Heart: Regular rhythm. Normal S1, S2. No murmurs, rubs, or gallops. Tachycardic. Lungs: Equal breath sounds bilaterally. No wheezing. No rhonchi. Abdomen: Soft, nontender, nondistended. No hepatosplenomegaly. Active bowel sounds. Extremity: No edema, cyanosis or clubbing. : lees cath in place. Skin: left tunneled cath in place. Lab and Diagnostics Result Diagram: 10/28/16 0330 10/28/16 0330 Microbiology UA: SG 1.020, protein 100 MG/DL, packed WBC, packed RBC, moderate bacteria Urine Culture pending Blood cultures pending X-Rays, CTs and MRIs PROCEDURE: CT ABDOMEN AND PELVIS WITHOUT CONTRAST ([id number]) IMPRESSION: 1. Decreased, mild bilateral hydronephrosis. Decreased bilateral ureteral dilatation. No urinary tract calcification. 2. Moderate diffuse urinary bladder wall thickening, suggestive of cystitis. Cystoscopy is recommended to exclude underlying neoplasm. 3. Presumed transitional cell carcinoma versus renal cell carcinoma within the left interpolar kidney is unchanged. 4. Bowel containing umbilical hernia without evidence of associated strangulation, nor obstruction. Dictated by: Maria Eugenia Ball M.D. on 10/14/2016 at 14:04 PROCEDURE: X-RAY CHEST ONE VIEW, PORTABLE ([id number]) IMPRESSION: No acute cardiopulmonary findings. Dictated by: Nathalia Ray M.D. on 10/14/2016 at 13:45 . Assessment & Plan 1. ESRD now declared. s/p tunneled cath placement. 2. Sepsis, resolved. 3. MRSA UTI. 4. Hep B infection: (+) HBs Ag, HBcore Ab, HBe Ab (-) HBe Ag HBV DNA viral load 200. no further treatment per as of now unless he became more immunosuppressed (i.e. on immunosuppressive treatment) that might be indicated. 5. Anemia of CKD and acute blood loss s/p blood transfusion and aranesp injection. 6. Left renal mass. Rule out renal cell carcinoma and transitional cell carcinoma. 7. History of obstructive uropathy status post cystoscopy and urethral dilatation. 8. Renal osteodystrophy Plan: HD Q TTS, 4 hr, UF as tolerated. d/c home once OP HD arranged. need f/u with urologist. d/c lees cath VTE Prophylaxis: SCDs VTE Mechanical Devices: Intermittant Pneumatic CD Resuscitation Status: CPR: Attempt Resuscitation Edgar De La Rosa MD Oct 28, 2016 12:46
--- NOTE | 2016-10-28 12:50 | NUR ---
Social Work: Readiness for Discharge D: Pt discussed in morning rounds. Pt is awaiting final disposition about dialysis setup and where this will occur. Pt requires isolation for dialysis. t/c to [facility] to discuss if pt's dialysis has been setup. Left message requesting return phone call. If pt is unable to dialyze at the kidney center, AUTOMATION TEST DEVELOPER to inquire about regular dialysis at [facility]. A: pt who is I at baseline and lives at home with a CG; no other needs identified at this time. P: Anticipate discharge home via POV once HD is setup. AUTOMATION TEST DEVELOPER to continue to help facilitate pt's HD appointments ROSY Foster
--- NOTE | 2016-10-28 14:40 | NUR ---
Dialysis note: 4 hrs tx. 1000 ml net UF. Left catheter, dsg changed, no s/s of infection noted. Pls see DTR for VS details. Qb 225-350 with catheter limbs reversed A-V V-A due to poor catheter function, Dr Ewing made aware. Heparin prime given. O2 @ 2L via NC on. 1 unit PRBC given with no problems. Tolerated tx, slept at intervals. Catheter flushed, heparin dwelled and secured. Report given to Bailee Mcgowan RN. Transferred back to patient's room in stable condition.
--- NOTE | 2016-10-28 14:49 | NUR ---
pt returned to [facility] post DIALYSIS at 1445 via bed escorted by CNAs report returned to primary nurse EZ RN (PCC) tele monitoring engineer informed of return to unit see signal constructor note, interventions, and/or graphic flow chart for treatment details pt received 1 unit PRBC during treatement; vss and BG = 111 @ 1330
--- NOTE | 2016-10-28 15:53 | PCM.PNMED ---
Subjective Date of Service Oct 28, 2016 Subjective No complaints of chest pain, dyspnea, nausea vomiting Exam Vital Signs Vital Sign - Last Date Time Temp Pulse Resp B/P Pulse Ox O2 Delivery O2 Flow Rate FiO2 10/28/16 11:15 36.0 75 20 86/51 10/28/16 08:05 96 Room Air Intake and Output 10/27/16 10/27/16 10/28/16 Cumulative From/Thru 15:00 23:00 07:00 10/14/16 14:53 - 10/28/16 06:59 Intake Total 1680 ml 400 ml 42381 ml Output Total 750 ml 700 ml 50260 ml Balance 930 ml -300 ml 6793 ml Intake Oral 1680 ml 400 ml 35297 ml IV Total 08446 ml Packed Cells 1310 ml Output Urine Total 750 ml 700 ml 93847 ml Emesis 0 ml Ultrafiltrate 4800 ml # Bowel Movements 23 Exam Gen.- A+ O 3 no apparent distress. Sitting up in bed watching television Eyes- open conjunctiva clear, pupils equal nonicteric Mouth- oral mucosa moist, no exudate ENT- ears normal, nose normal Neck- supple/trach midline CVS-normal rate Lungs normal rate, nonlabored no accessory muscle usage GI-slightly generous Musc- moving 4 no obvious deformity Neuro- cranial nerves II through XII intact to gross examination, nonfocal Skin- warm and dry, no rashes, bruises/fragile skin, her arms Psych- pleasant and appropriate, Lab and Diagnostics Result Diagram: 10/28/16 03310/28/16 033 Microbiology UA: SG 1.020, protein 100 MG/DL, packed WBC, packed RBC, moderate bacteria Urine Culture pending Blood cultures pending X-Rays, CTs and MRIs PROCEDURE: CT ABDOMEN AND PELVIS WITHOUT CONTRAST ([id number]) IMPRESSION: 1. Decreased, mild bilateral hydronephrosis. Decreased bilateral ureteral dilatation. No urinary tract calcification. 2. Moderate diffuse urinary bladder wall thickening, suggestive of cystitis. Cystoscopy is recommended to exclude underlying neoplasm. 3. Presumed transitional cell carcinoma versus renal cell carcinoma within the left interpolar kidney is unchanged. 4. Bowel containing umbilical hernia without evidence of associated strangulation, nor obstruction. Dictated by: Maria Eugenia Ball M.D. on 10/14/2016 at 14:04 PROCEDURE: X-RAY CHEST ONE VIEW, PORTABLE ([id number]) IMPRESSION: No acute cardiopulmonary findings. Dictated by: Nathalia Ray M.D. on 10/14/2016 at 13:45 . Assessment & Plan 71-year-old male admitted 10/14 with GIGI now CKD 6 on HD secondary to obstructive /reflux uropathy. 1. ESRD now declared. s/p tunneled cath placement. Renal arranging outpatient dialysis 2. Sepsis, resolved. 3. MRSA UTI. On daptomycin through [address] roy was 4. Hep B infection: (+) HBs Ag, HBcore Ab, HBe Ab (-) HBe Ag HBV DNA viral load 200 10/26. no further treatment per as of now unless he became more immunosuppressed (i.e. on immunosuppressive treatment) that might be indicated. Patient is cleared for regular dialysis 10/28 5. Anemia of CKD and acute blood loss s/p blood transfusion and aranesp injection. Per renal, Hg 7.7 10/28 6. Left renal mass. Rule out renal cell carcinoma and transitional cell carcinoma. 7. History of obstructive uropathy status post cystoscopy and urethral dilatation. 8. Renal osteodystrophy Plan: HD Q TTS, 4 hr, UF as tolerated. d/c home once OP HD arranged. need f/u with urologist. d/c lees cath Medically complex patient first-day meeting 10/28 VTE Prophylaxis: SCDs VTE Mechanical Devices: Intermittant Pneumatic CD Resuscitation Status: CPR: Attempt Resuscitation Jh Barillas MD Oct 28, 2016 15:53 Resuscitation Status: CPR: Attempt Resuscitation Jh Barillas MD Oct 28, 2016 15:53
[2016-10-28] MEDS: Insulin GLARgine 100 Unit/mL Syringe SUBQ SCH (20:30)
[2016-10-29 04:02] VITALS: BP 102/52; PULSE 77; RESP 20; O2SAT 93
[2016-10-29 07:27] VITALS: BP 110/64; PULSE 78; RESP 18; O2SAT 95
[2016-10-29] MEDS: Vitamin B Complex/Vit C Tablet PO SCH (07:35)
[2016-10-29] MEDS: Sodium Chloride LOK Flush 10 mL Syringe IVFLUSH SCH ×2 (07:35→15:57)
[2016-10-29] MEDS: Insulin LISPRO 300 Unit/3 mL Inj SUBQ SCH ×4 (07:35→22:00)
[2016-10-29] MEDS: 0.9% Sodium Chloride 250 ML IV SCH (07:40)
[2016-10-29 11:48] VITALS: BP 114/67; PULSE 78; RESP 20; O2SAT 99
--- NOTE | 2016-10-29 12:09 | PCM.PNMED ---
Subjective Date of Service Oct 29, 2016 Subjective no new issue overnight. HD yesterday without complications, s/p PRBC x 1 with HD. Exam Vital Signs Vital Sign - Last Date Time Temp Pulse Resp B/P Pulse Ox O2 Delivery O2 Flow Rate FiO2 10/29/16 11:48 36.5 78 20 114/67 99 Room Air Intake and Output 10/28/16 10/28/16 10/29/16 Cumulative From/Thru 15:00 23:00 07:00 10/14/16 14:53 - 10/29/16 06:08 Intake Total 1303 ml 400 ml 62207 ml Output Total 1000 ml 500 ml 37499 ml Balance -1000 ml 803 ml 400 ml 6996 ml Intake Oral 1160 ml 400 ml 61102 ml IV Total 143 ml 05429 ml Packed Cells 1310 ml Output Urine Total 500 ml 57770 ml Emesis 0 ml Ultrafiltrate 1000 ml 5800 ml # Voids 2 2 # Bowel Movements 10 03 24 Exam General appearance: NAD. Lying in bed comfortably. HEENT: Mild pallor. No jaundice. No JVD. No lymphadenopathy. No thyroid enlargement. Dry mucosal membranes. Heart: Regular rhythm. Normal S1, S2. No murmurs, rubs, or gallops. Tachycardic. Lungs: Equal breath sounds bilaterally. No wheezing. No rhonchi. Abdomen: Soft, nontender, nondistended. No hepatosplenomegaly. Active bowel sounds. Extremity: No edema, cyanosis or clubbing. Skin: left tunneled cath in place. Lab and Diagnostics Result Diagram: 10/28/16 0330 10/28/16 0330 Microbiology UA: SG 1.020, protein 100 MG/DL, packed WBC, packed RBC, moderate bacteria Urine Culture pending Blood cultures pending X-Rays, CTs and MRIs PROCEDURE: CT ABDOMEN AND PELVIS WITHOUT CONTRAST ([id number]) IMPRESSION: 1. Decreased, mild bilateral hydronephrosis. Decreased bilateral ureteral dilatation. No urinary tract calcification. 2. Moderate diffuse urinary bladder wall thickening, suggestive of cystitis. Cystoscopy is recommended to exclude underlying neoplasm. 3. Presumed transitional cell carcinoma versus renal cell carcinoma within the left interpolar kidney is unchanged. 4. Bowel containing umbilical hernia without evidence of associated strangulation, nor obstruction. Dictated by: Maria Eugenia Ball M.D. on 10/14/2016 at 14:04 PROCEDURE: X-RAY CHEST ONE VIEW, PORTABLE ([id number]) IMPRESSION: No acute cardiopulmonary findings. Dictated by: Nathalia Ray M.D. on 10/14/2016 at 13:45 . Assessment & Plan 1. ESRD now declared. s/p tunneled cath placement. 2. Sepsis, resolved. 3. MRSA UTI. 4. Hep B infection: (+) HBs Ag, HBcore Ab, HBe Ab (-) HBe Ag HBV DNA viral load 200. no further treatment per as of now unless he became more immunosuppressed (i.e. on immunosuppressive treatment) that might be indicated. 5. Anemia of CKD and acute blood loss s/p blood transfusion and aranesp injection. 6. Left renal mass. Rule out renal cell carcinoma and transitional cell carcinoma. 7. History of obstructive uropathy status post cystoscopy and urethral dilatation. 8. Renal osteodystrophy Plan: I talked to ELAINE Correa at [facility]. Since isolation is required, we are still pending for a dialysis slot for him. If he is medically cleared for d/c, we can release him. Meantime, he will have to return to [facility] for HD until HD slot at [facility] becomes available. VTE Prophylaxis: SCDs VTE Mechanical Devices: Intermittant Pneumatic CD Resuscitation Status: CPR: Attempt Resuscitation Edgar D eLa Rosa MD Oct 29, 2016 12:09
--- NOTE | 2016-10-29 13:23 | PCM.DIMED ---
Discharge Instructions Date of Service Oct 29, 2016 Dates of Hospitalization Oct 14, 2016 at 14:06 Discharge Diagnosis Discharge Diagnosis Acute kidney injury resulting in permanent renal failure and dialysis Diet Renal Diet Activity No restrictions Call your provider Fever or Chills, Shortness of breath, Chest pain Patient Instructions He will need to come to the medical observation care unit for dialysis until further notice Tuesday, Tuesday, Follow-up plan He should see his primary care provider Dr. Newman within the next week or 2, and Dr. Santos call his primary plastic duplicator. Follow-up Provider: Xiomara Clark MD Follow-up with PCP in: 5 weeks Provider: Tyler Santos DO Follow-up in: Other (call for appointment) Jh Barillas MD Oct 29, 2016 13:23
[2016-10-29] MEDS ORDERED: INSU100V7 SUBQ (13:33)
[2016-10-29] MEDS ORDERED: INSLIS SUBQ (13:33)
[2016-10-29] MEDS ORDERED: CALC667T5 PO (13:33)
[2016-10-29] MEDS ORDERED: FOLI0.8T2 PO (13:33)
[2016-10-29] MEDS ORDERED: CALC0.257 PO (13:33)
--- NOTE | 2016-10-29 16:11 | NUR ---
Social Work: Discharge D: Pt discussed in am rounds. pt is medically stable for discharge home pending outpatient HD schedule. GAS CUTTING MACHINE OPERATOR received t/c from Nancy at [facility] who states that they will see the pt tomorrow at 0800 for dialysis. GAS CUTTING MACHINE OPERATOR met with pt at bedside to confirm dcp. Pt agrees with plan for d/c home with his live-in caregiver and Signature for RN, PT. t/c to Abhinav Foster with [facility]. Left message notifying of pt's discharge home today. F2F signed and faxed to [facility] ([phone]) A: Pt who is I at baseline and lives with caregiver P: Pt to discharge home today with [facility] for RN, PT. ROSY Foster
[2016-10-29 17:19] VITALS: BP 116/64; PULSE 84; O2SAT 95
--- NOTE | 2016-10-29 18:15 | PCM.DC.MED ---
Discharge Summary Date of Service Oct 29, 2016 Dates of Hospitalization Date of Hospital Admission Oct 14, 2016 at 14:06 Date of Discharge: Oct 29, 2016 Providers: Admitting Physician: John Pickering MD Primary Care Physician: Xiomara Clark MD Attending Physician: John Pickering MD Diagnosis at Time of Discharge Diagnosis at Time of Discharge Acute kidney injury resulting in permanent renal failure and dialysis Consultations Infectious disease Dr. Lopez, Nephrology Dr. Chacon Procedures XRay, CTs & MRIs PROCEDURE: CT ABDOMEN AND PELVIS WITHOUT CONTRAST ([id number]) IMPRESSION: 1. Decreased, mild bilateral hydronephrosis. Decreased bilateral ureteral dilatation. No urinary tract calcification. 2. Moderate diffuse urinary bladder wall thickening, suggestive of cystitis. Cystoscopy is recommended to exclude underlying neoplasm. 3. Presumed transitional cell carcinoma versus renal cell carcinoma within the left interpolar kidney is unchanged. 4. Bowel containing umbilical hernia without evidence of associated strangulation, nor obstruction. Dictated by: Maria Eugenia Ball M.D. on 10/14/2016 at 14:04 PROCEDURE: X-RAY CHEST ONE VIEW, PORTABLE ([id number]) IMPRESSION: No acute cardiopulmonary findings. Dictated by: Nathalia Ray M.D. on 10/14/2016 at 13:45 . Cardiac Echo Impression 10/15 [facility] Interpretation Summary The study quality was technically difficult. The left ventricle is moderate-severely dilated. The ejection fraction is estimated to be 30-35%. There is posterolateral wall akinesis. There is moderate to severe global hypokinesis. The best contractility is in the mid to distal anterior wall and anteroseptum. The right ventricle is not well visualized. Grossly, RV is atleast mildly dilated and function is moderately reduced. There is mild to moderate mitral regurgitation. Evaluation of regurgitation is inadequate. There is mild tricuspid regurgitation. Pulmonary artery pressures cannot be estimated because of the lack of a measurable TR jet velocity. The ascending aorta is mildly enlarged. Invasive Procedures Maria Eugenia Ball 10/26 PROCEDURE: CV TUNNEL CATH PLCMNT 1. Sonographic guidance for venous access. 2. Conscious sedation for 48 minutes. 3. Left internal jugular vein tunneled hemodialysis catheter placement. 4. Fluoroscopic guidance for catheter placement. Brief History Patient presented 10/14 nausea and vomiting for 3 days resulting in very poor oral intake. States he has been feeling lousy all over. This is been associated with presyncope, resulting in reduced ambulation. Hospital Course 71-year-old male admitted 10/14 with GIGI now CKD 6 on HD secondary to obstructive /reflux uropathy. I met this patient 10/28 just prior to discharge. At this point in time he was clinically stable ambulating up and down the hallway. Labs stabilized and it was felt that his end-stage renal disease had declared itself and he is being set up for long-term dialysis. 1. ESRD now declared. s/p tunneled cath placement. Outpatient dialysis to be done at [facility] Tuesday/Tuesday/ until regular spot can be arranged secondary to issues with hep B 2. Sepsis, resolved. 3. MRSA UTI. On daptomycin through 10/29 . 4. Hep B infection: (+) HBs Ag, HBcore Ab, HBe Ab (-) HBe Ag HBV DNA viral load 200 10/26. no further treatment per as of now unless he became more immunosuppressed (i.e. on immunosuppressive treatment) that might be indicated. Patient does not require treatment 10/28, he is contagious for the purposes of dialysis. 5. Anemia of CKD and acute blood loss s/p blood transfusion and aranesp injection. Per renal, Hg 7.7 10/28 6. Left renal mass. Rule out renal cell carcinoma and transitional cell carcinoma. 7. History of obstructive uropathy status post cystoscopy and urethral dilatation. 8. Renal osteodystrophy Patient being discharged home with some home health as well as dialysis here at the hospital of the [facility]. Exam Vital Signs (Last) Date Time Temp Pulse Resp B/P Pulse Ox O2 Delivery O2 Flow Rate FiO2 10/29/16 17:19 36.7 84 116/64 95 Room Air 10/29/16 11:48 20 Exam Gen.- A+ O 3 no apparent distress. Sitting up in bed watching television Eyes- open conjunctiva clear, pupils equal nonicteric ENT- ears normal, nose normal Neck- supple/trach midline CVS-normal rate Lungs normal rate, nonlabored no accessory muscle usage GI-slightly generous Musc- moving 4 no obvious deformity Neuro- cranial nerves II through XII intact to gross examination, nonfocal Skin- warm and dry, no rashes, bruises/fr Test 10/14/16 10:45 10/14/16 12:03 10/14/16 12:40 10/14/16 13:29 Hemoglobin A1c 6.2% (4.8-5.6) Uric Acid 10.6mg/dL (2.6-7.2) Troponin T 0.192ug/L (0.0-0.011) Hold Purple Top Tube Received (Received) Hold Blue Top Tube Received (Received) Hold Red Top Tube Received (Received) Hold [place] Top Tube Received (Received) Lactic Acid Level 1.7mmol/L (0.4-2.0) Urine Color Bloody (YELLOW) Urine Appearance Turbid (CLEAR,HAZY) Urine pH 6.0 (5.0-8.0) Urine Specific [place] 1.020 (1.003-1.035) Urine Protein 100mg/dL (NEG,TRACE) Urine Glucose (UA) Negativemg/dL (NEGATIVE) Urine Ketones Negativemg/dL (NEGATIVE) Urine Occult Blood Large (NEGATIVE) Urine Nitrite Negative (NEGATIVE) Urine Bilirubin Negative (NEGATIVE) Urine Urobilinogen Normalmg/dL (NORMAL) Urine Leukocyte Esterase Large (NEGATIVE) Urine RBC Packed/hpf (0-2) Urine WBC Packed/hpf (0-5) Urine Epithelial Cells Occasional/hpf (NONE-MOD) Urine Crystals None seen (NONE SEEN) Urine Bacteria Moderate/hpf (NONE-FEW) Urine Hyaline Casts None/lpf (NONE) Urine Granular Casts None seen (NONE SEEN) Urine Waxy Casts None seen (NONE SEEN) Urine Red Blood Cell Casts None seen (NONE SEEN) Urine White Blood Cell Casts None seen (NONE SEEN) Urine Mucus None seen (None Seen) Urine Trichomonas None seen (NONE SEEN) Urine Yeast None (NONE SEEN) Urinalysis Comment None Urine Culture Reflexed Indicated Test 10/15/16 10:05 10/15/16 14:30 10/16/16 18:30 10/17/16 17:50 Parathyroid Hormone (Intact) 763pg/mL (15-65) Vancomycin Level Trough 25.1mcg/mL Hepatitis B Surface Antigen Positive (Negative) Hepatitis B Surface Antibody Non reactive (.) Hepatitis B Core Total Antibody Positive (Negative) Hepatitis C Antibody 0.1s/co ratio (0.0-0.9) Magnesium Level 1.3mg/dL (1.6-2.6) Hepatitis Be Antibody Positive (Negative) Test 10/18/16 04:57 10/18/16 10:20 10/24/16 03:15 10/25/16 04:35 Iron Level 85ug/dL (35-150) Total Iron Binding Capacity 120ug/dL (250-450) Percent Iron Saturation 71%sat (15-50) Unsaturated Iron Binding 35.0ug/dL Ferritin 857ng/mL (30-400) Vitamin B12 Level 570pg/mL (211-946) Folate 3.6ng/mL (>3.0) Hepatitis B Virus Quantitation 200Copies/mL (.) Hepatitis B DNA Test Information Comment (.) HIV (1&2) Ag and Ab, 4th Generation Non reactive (Non Reactive) Total Bilirubin 0.3mg/dL (0.0-1.2) Aspartate Amino Transf (AST/SGOT) 25U/L (0-50) Alanine Aminotransferase (ALT/SGPT) 27U/L (0-44) Alkaline Phosphatase 51U/L (25-160) Total Protein 5.7g/dL (6.4-8.4) Estimat Glomerular Filtration Rate 8mL/min (>59) Total Creatine Kinase 58U/L (21-232) Test 10/25/16 10:35 10/26/16 03:45 10/28/16 03:30 Hepatitis Be Antigen Negative (Negative) Prothrombin Time 10.7sec (8.1-12.5) Prothromb Time International Ratio 1.00ratio Activated Partial Thromboplast Time 25.5sec (22.8-33.0) White Blood Count 5.7th/mm3 (3.8-10.1) Red Blood Count 2.55mil/mm3 (4.40-5.80) Hemoglobin 7.7g/dL (13.8-17.2) Hematocrit 24.6% (41.0-50.0) Mean Corpuscular Volume 96.5fL (81-100) Mean Corpuscular Hemoglobin 30.2pg (27.0-35.0) Mean Corpuscular Hemoglobin Concent 31.3% (32.0-37.0) Red Cell Distribution Width 12.9% (12.3-15.4) Platelet Count 188bil/L (150-400) Neutrophils (%) (Auto) 43.8% (40-74) Lymphocytes (%) (Auto) 38.7% (14-46) Monocytes (%) (Auto) 12.0% (4-12) Eosinophils (%) (Auto) 4.4% (0-5) Basophils (%) (Auto) 0.7% (0-3) Sodium Level 139mEq/L (134-144) Potassium Level 4.6mEq/L (3.5-5.2) Chloride Level 102mEq/L (97-108) Carbon Dioxide Level 24mmol/L (18-29) Blood Urea Nitrogen 46mg/dL (8-27) Creatinine 7.05mg/dL (0.76-1.27) Glucose Level 88mg/dL (60-99) Calcium Level 7.9mg/dL (8.5-10.1) Phosphorus Level 3.2mg/dL (2.5-4.9) Albumin 2.5g/dL (3.4-5.0) Microbiology Results UA: SG 1.020, protein 100 MG/DL, packed WBC, packed RBC, moderate bacteria Urine Culture pending Blood cultures pending Discharge Medications Discharge Medications Ascorbic Acid (Vitamin C) 250 Mg Tab.chew 250 MG PO DAILY (Reported) Calcitriol (Rocaltrol) 0.25 Mcg Capsule 0.25 MCG PO DAILY Prescribed by: KAZ MARQUEZ MD Calcium Acetate (Calcium Acetate) 667 Mg Tablet 1,334 MG PO TIDWM Prescribed by: KAZ MARQUEZ MD Citalopram (Citalopram) 20 Mg Tablet 20 MG PO DAILY (Reported) Ferrous Sulfate (Iron) 325 Mg Capsule.er 325 MG PO DAILY (Reported) Folic Acid/Vitamin B Comp W-C (Nephro-Amira Tablet) 0.8 Mg Tablet 1 TABLET PO DAILY Prescribed by: KAZ MARQUEZ MD Insulin Glargine (Lantus U100 Insulin Vial) 100 Unit/Ml Vial 8 UNIT SUBQ HS Prescribed by: KAZ MARQUEZ MD Insulin Human Lispro (HumaLOG U100 Insulin Vial) 100 Unit/Ml Unit 0 UNIT SUBQ WMHS Check blood sugars before meals and at bedtime. Use correction factor only before meals. Blood Sugar Lispro Correction: <151, 0 units; 151-175, 1 unit; 176-200, 2 units; 201-225, 3 units; 226-250, 4 units; 251-275, 5 units; 276-300 , 6 units; 301-325, 7 units; 326-350, 8 units; 351-375, 9 units; 376-400, 10 units; >400, 12 units. Prescribed by: KAZ MARQUEZ MD Tamsulosin ER (Tamsulosin ER) 0.4 Mg Cap.er.24h 0.4 MG PO DAILY (Reported) Followup Plan Disposition: Patient home with home health Follow-up plan He should see his primary care provider Dr. Newman within the next week or 2, and Dr. Santos call his primary supervisor char house. Discharge Diet: Renal Diet Discharge Activity: No restrictions Patient Instructions He will need to come to the medical observation care unit for dialysis until further notice Tuesday, Tuesday, Follow-up Provider: Xiomara Clark MD Follow-up with PCP in: Other (as soon as possible) Provider: Tyler Santos DO Follow-up in: Other (call for appointment) Time spent 31 minutes copies to: Tyler Santos DO; Xiomara Clark MD, Andris E MD Oct 29, 2016 18:15
--- NOTE | 2016-10-29 19:27 | NUR ---
Discharge Pt. discharge pending final signature from MD DEVONTE made aware of this. Pt. is also aware of this and states he understands he needs MDs final signature. Daughter called and asked if we could keep him over night at this point during the day because she cannot see well in the night. Passed this on to RANDY RN. Pt, is in bed resting comfortably and is content and eager to go home.
[2016-10-29 19:52] VITALS: BP 112/62; PULSE 80; RESP 16; O2SAT 92
[2016-10-29] MEDS: Insulin GLARgine 100 Unit/mL Syringe SUBQ SCH (22:03)
[2016-10-30 00:11] VITALS: BP 126/70; PULSE 73; RESP 18; O2SAT 90
[2016-10-30] MEDS: Sodium Chloride LOK Flush 10 mL Syringe IVFLUSH SCH ×2 (01:57→08:30)
[2016-10-30 04:02] VITALS: BP 111/65; PULSE 71; RESP 18; O2SAT 92
--- NOTE | 2016-10-30 05:17 | NUR ---
Rest Patient sleeping well overnight. Mild aches and pains, which resolved with PO tylenol. Patient looking forward to discharge later this morning. Continue to monitor.
[2016-10-30 05:46] LABS: BASOPHILS % (AUTO) 0.7 % (0-3); EOSINOPHILS % (AUTO) 6.1 % (0-5); MONOCYTES % (AUTO) 14.4 % (4-12); Mean Corpuscular Hemoglobin 30.3 pg (27.0-35.0); Mean Corpuscular Volume 95.2 fL (81-100); NEUTROPHILS % (AUTO) 36.7 % (40-74); Platelet Count 216 bil/L (150-400)
[2016-10-30] MEDS: Insulin LISPRO 300 Unit/3 mL Inj SUBQ SCH (07:55)
[2016-10-30 07:58] VITALS: BP 117/65; PULSE 78; RESP 18; O2SAT 99
[2016-10-30] MEDS: Vitamin B Complex/Vit C Tablet PO SCH (08:30)
--- NOTE | 2016-10-30 08:34 | NUR ---
[facility] for dialysis: Patient transferred via bed to [facility] room 244-2 for ordered dialysis per caustic room attendantRossy. Patient awake and alert. Report received from primary RN.
[2016-10-30] MEDS ORDERED: Alteplase (Cathflo) 1 mg/mL 2 mL Inj INTRACATH ONE ×2 (10:05)
--- NOTE | 2016-10-30 12:07 | PCM.PNMED ---
Subjective Date of Service Oct 30, 2016 Subjective Pt was seen during HD. Poor blood flow and clotted system after 3rd hr of HD treatment. Blood returned. altepase administered thru tunneled cath. Exam Vital Signs Vital Sign - Last Date Time Temp Pulse Resp B/P Pulse Ox O2 Delivery O2 Flow Rate FiO2 10/30/16 07:58 36.3 78 18 117/65 99 Room Air Intake and Output 10/29/16 10/29/16 10/30/16 Cumulative From/Thru 15:00 23:00 07:00 10/14/16 14:53 - 10/30/16 05:17 Intake Total 430 ml 30 ml 06747 ml Output Total 50 ml 66281 ml Balance 380 ml 30 ml 7406 ml Intake Oral 430 ml 39631 ml IV Total 30 ml 99120 ml Packed Cells 1310 ml Output Urine Total 50 ml 66832 ml Emesis 0 ml Ultrafiltrate 5800 ml # Voids 1 3 # Bowel Movements 25 Exam General appearance: NAD. Lying in bed comfortably. HEENT: Mild pallor. No jaundice. No JVD. No lymphadenopathy. No thyroid enlargement. Dry mucosal membranes. Heart: Regular rhythm. Normal S1, S2. No murmurs, rubs, or gallops. Tachycardic. Lungs: Equal breath sounds bilaterally. No wheezing. No rhonchi. Abdomen: Soft, nontender, nondistended. No hepatosplenomegaly. Active bowel sounds. Extremity: No edema, cyanosis or clubbing. Skin: left tunneled cath in place. Lab and Diagnostics Result Diagram: 10/30/16 0500 10/30/16 0500 Microbiology UA: SG 1.020, protein 100 MG/DL, packed WBC, packed RBC, moderate bacteria Urine Culture pending Blood cultures pending X-Rays, CTs and MRIs PROCEDURE: CT ABDOMEN AND PELVIS WITHOUT CONTRAST ([id number]) IMPRESSION: 1. Decreased, mild bilateral hydronephrosis. Decreased bilateral ureteral dilatation. No urinary tract calcification. 2. Moderate diffuse urinary bladder wall thickening, suggestive of cystitis. Cystoscopy is recommended to exclude underlying neoplasm. 3. Presumed transitional cell carcinoma versus renal cell carcinoma within the left interpolar kidney is unchanged. 4. Bowel containing umbilical hernia without evidence of associated strangulation, nor obstruction. Dictated by: Maria Eugenia Ball M.D. on 10/14/2016 at 14:04 PROCEDURE: X-RAY CHEST ONE VIEW, PORTABLE ([id number]) IMPRESSION: No acute cardiopulmonary findings. Dictated by: Nathalia Ray M.D. on 10/14/2016 at 13:45 . Cardiac Echo Impressions 10/15 [facility] Interpretation Summary The study quality was technically difficult. The left ventricle is moderate-severely dilated. The ejection fraction is estimated to be 30-35%. There is posterolateral wall akinesis. There is moderate to severe global hypokinesis. The best contractility is in the mid to distal anterior wall and anteroseptum. The right ventricle is not well visualized. Grossly, RV is atleast mildly dilated and function is moderately reduced. There is mild to moderate mitral regurgitation. Evaluation of regurgitation is inadequate. There is mild tricuspid regurgitation. Pulmonary artery pressures cannot be estimated because of the lack of a measurable TR jet velocity. The ascending aorta is mildly enlarged. Assessment & Plan 1. ESRD due to chronic obstruction s/p tunneled cath placement. on HD Q TTS. 2. Sepsis, resolved. 3. MRSA UTI. 4. Hep B infection: HBV DNA viral load 200. 5. Anemia of CKD and acute blood loss s/p blood transfusion and aranesp injection. 6. Left renal mass. pending urology eval. 7. History of obstructive uropathy status post cystoscopy and urethral dilatation. 8. Renal osteodystrophy Plan: Next HD on Tuesday. Since isolation is required, we are still pending for a dialysis slot for him. If he is medically cleared for d/c, we can release him. Meantime, he will have to return [facility] until [facility] available. VTE Prophylaxis: SCDs VTE Mechanical Devices: Intermittant Pneumatic CD Resuscitation Status: CPR: Attempt Resuscitation Edgar De La Rosa MD Oct 30, 2016 12:07
--- NOTE | 2016-10-30 13:52 | NUR ---
Dialysis note 3 hrs HD completed. Poor catheter function (only allowing a QB 200) despite reversal either limb. Eventually system showing signs of clotting after qian 3 hrs. and then quickly clotted. Most of system blood return. EBL 100 ml. Cath Flow instilled at end of tx. Dr. Ewing aware. VSS thru tx. Qian 1000ml net UF achieved. See DTR for complete vitals. Report given and pt returned to floor stable. Will HD in [facility] as an outpt unless otherwise told we can admit to [facility] because of isolation issues with HEP B status.
--- NOTE | 2016-10-30 14:15 | NUR ---
discharge of patient Reviewed discharge instructions with patient. Pt verbalized understanding. However stating "they can call me if they want me to see them!!" in regards to follow up with pcp and Dr Santos. Pt discharge via wheelchair with prescriptions and instructions. IV and pt was nontele at discharge. Pt left hospital with friend to home self care.
[2017-02-02] MEDS ORDERED: POLY17PO2 PO (15:06)
== END 2016-10-30 14:15 | disposition home or self-care (01) | DRG 871 ==
LOC: SED 11:32 → EDUNIT# 11:32 → EDBD 11:32 → PCC 14:06
PROVIDERS: ADMIT Internal Medicine; ATTEND Internal Medicine
PROC: 02HV33Z Insertion of Infusion Device into Superior Vena Cava, Percutaneous Approach (ICD-10-PCS; principal; 2016-10-15)
PROC: 30233N1 Transfusion of Nonautologous Red Blood Cells into Peripheral Vein, Percutaneous Approach (ICD-10-PCS; 2016-10-15)
PROC: 5A1D60Z (ICD-10-PCS; 2016-10-15)
PROC: 5A1D60Z (ICD-10-PCS; 2016-10-16)
PROC: 5A1D60Z (ICD-10-PCS; 2016-10-17)
PROC: 5A1D60Z (ICD-10-PCS; 2016-10-18)
PROC: 30233N1 Transfusion of Nonautologous Red Blood Cells into Peripheral Vein, Percutaneous Approach (ICD-10-PCS; 2016-10-20)
PROC: 5A1D60Z (ICD-10-PCS; 2016-10-20)
PROC: 5A1D60Z (ICD-10-PCS; 2016-10-22)
PROC: 02HV33Z Insertion of Infusion Device into Superior Vena Cava, Percutaneous Approach (ICD-10-PCS; 2016-10-26)
PROC: 5A1D60Z (ICD-10-PCS; 2016-10-26)
PROC: 30233N1 Transfusion of Nonautologous Red Blood Cells into Peripheral Vein, Percutaneous Approach (ICD-10-PCS; 2016-10-28)
PROC: 5A1D60Z (ICD-10-PCS; 2016-10-28)
PROC: 3E033PZ Introduction of Platelet Inhibitor into Peripheral Vein, Percutaneous Approach (ICD-10-PCS; 2016-10-30)
PROC: 3E04317 Introduction of Other Thrombolytic into Central Vein, Percutaneous Approach (ICD-10-PCS; 2016-10-30)
PROC: 5A1D60Z (ICD-10-PCS; 2016-10-30)
DX: A41.1 Sepsis due to other specified staphylococcus (principal); N18.6 End stage renal disease; N39.0 Urinary tract infection, site not specified; N17.9 Acute kidney failure, unspecified; E87.2 Acidosis; E87.1 Hypo-osmolality and hyponatremia; Z68.41 Body mass index [BMI] 40.0-44.9, adult; D62 Acute posthemorrhagic anemia; B19.10 Unspecified viral hepatitis B without hepatic coma; I12.0 Hypertensive chronic kidney disease with stage 5 chronic kidney disease or end stage renal disease; E11.22 Type 2 diabetes mellitus with diabetic chronic kidney disease; Z87.891 Personal history of nicotine dependence; Z79.4 Long term (current) use of insulin; N13.9 Obstructive and reflux uropathy, unspecified; F32.9 Major depressive disorder, single episode, unspecified; N28.89 Other specified disorders of kidney and ureter; I73.9 Peripheral vascular disease, unspecified; M10.9 Gout, unspecified; E87.5 Hyperkalemia; E83.39 Other disorders of phosphorus metabolism; R31.0 Gross hematuria; R65.20 Severe sepsis without septic shock; B95.62 Methicillin resistant Staphylococcus aureus infection as the cause of diseases classified elsewhere; E66.01 Morbid (severe) obesity due to excess calories; D63.1 Anemia in chronic kidney disease; E83.51 Hypocalcemia

== ENCOUNTER 2016-11-09 00:12 | Day surgery (SDC) | payer MEDICARE, OTHER ==
[2016-11-09] VITALS (7 sets, daily range): BP systolic 96–131; BP diastolic 54–98; PULSE 77–87; RESP 12–20; O2SAT 95
[~2016-11-09] VITALS: Ht 180.3 cm; Wt 138.0 kg
[~2016-11-09 00:12] MED LIST changes: +ASCO250T7 PO; -Acetaminophen PO; +CALC667T5 PO; +FERR325C PO; +FOLI0.8T2 PO; -POLY17PO6 PO; -SENN-133 PO; +TAMS0.4C29 PO; -TAMS0.4C98 PO
--- NOTE | 2016-11-09 09:02 | NUR ---
Admitted for a tunnel catheter this AM - current tunnel catheter is not functioning - even post TPA at dialysis center - catheter is to be replaced by IR Radiologist. Case has been postponed to 1200 - that is when IR Radiologist will be available.
[2016-11-09 09:47] LABS: INR 1.02 ratio
[2016-11-09] MEDS ORDERED: 0.9% Sodium Chloride 250 ML ONE (11:08)
[2016-11-09] MEDS ORDERED: Heparin 5,000 Units/500 mL NS Premix IV ONE (11:24)
[2016-11-09] MEDS ORDERED: Heparin 1,000 Unit/mL 10 mL Inj ONE (11:24)
[2016-11-09] MEDS ORDERED: fentaNYL-PF 50 mCg/mL 2 mL Inj ONE (11:54)
--- NOTE | 2016-11-09 14:05 | NUR ---
Recovery post tunnel catheter exchange completed in [place]. Pt is discharged under the care of his caregiver, "Gill". Plan is to go to dialysis 11/10/16 as usually scheduled check-in at 12:30 and on dialysis at 1300. Pt has no pain - light serous - at tunnel access site, but no hematoma and no pain.
--- NOTE | 2016-11-09 17:13 | DRSVH ---
PROCEDURE: CV REPLACE CATH TUNLD 1. Conscious sedation for 30 minutes. 2. Right internal jugular vein tunneled hemodialysis catheter replacement 3. Fluoroscopic guidance for catheter placement. INDICATIONS: POOR FUNCTION TECHNIQUE: The indications, alternatives, benefits, risks, and complications of the procedure were e xplained to the patient and any family members present. Informed written consent was obtained and pl aced in the chart. The patient was brought to the angiography suite, and conscious sedation was admi nistered intravenously by [facility] staff, while continuous cardiorespiratory monitoring was pe rformed. Maximum sterile barrier technique was employed per standard protocol, including hand hygiene, cap, ma sk, sterile gown and gloves, and 2% chlorhexidine. 1% lidocaine was used for local anaesthesia. 2 guidewires were advanced down the lumens of the existi ng hemodialysis catheter. The catheter was removed, and a new dual-lumen tunneled hemodialysis cathet er was advanced with the tip in the right atrium. The catheter was sutured to the chest wall with non absorbable suture. The patient tolerated the procedure without difficulty and was in stable condition at the conclusion of the procedure. COMPARISON: [facility], XA, CV TUNNEL CATH PLCMNT, 10/26/2016, 14:11. FINDINGS: Fluoroscopic imaging demonstrates tip of the catheter the right atrium. IMPRESSION: Right internal jugular vein tunneled hemodialysis catheter replacement using sonographic guidance. Dictated by: Nathalia Ray M.D. on 11/09/2016 at 17:05 Approved by: Nathalia Ray M.D. on 11/09/2016 at 17:07
[2017-02-02] MEDS ORDERED: POLY17PO2 PO (15:06)
== END 2016-11-09 23:59 | disposition home or self-care (01) ==
LOC: SOUO 00:12
PROVIDERS: ATTEND Radiology Vascular & Interventional Radiology
DX: T82.41XA Breakdown (mechanical) of vascular dialysis catheter, initial encounter (principal); N19 Unspecified kidney failure
CPT/HCPCS: 36415; 36581; 77001; 85610; 85730; 99152; C1750; C1769; J1644; J2250; J3010

== ENCOUNTER 2017-02-03 01:38 | Day surgery (SDC) | payer MEDICARE, OTHER ==
[~2017-02-03] VITALS: Ht 182.9 cm; Wt 143.0 kg
[~2017-02-03 01:38] MED LIST changes: +POLY17PO2 PO
[2017-02-03 09:25] VITALS: BP 113/69; PULSE 88; RESP 18; O2SAT 97
[2017-02-03] MEDS ORDERED: CeFAZolin Inj 2 GM in IV Premix 1 EACH IV ONE (10:02)
[2017-02-03] MEDS ORDERED: Heparin 1,000 Unit/mL 10 mL Inj ONE (10:27)
[2017-02-03] MEDS ORDERED: Heparin 5,000 Units/500 mL NS Premix IV ONE (10:27)
--- NOTE | 2017-02-03 11:29 | DRSVH ---
PROCEDURE: 1. left internal jugular vein dialysis cathether exchange 2. Conscious sedation x 31 minutes TECHNIQUE: Informed, written consent from the patient was obtained prior to the procedure. The patien t was brought to the angiography suite, and conscious sedation was administered intravenously by skil led nursing staff, while continuous cardiorespiratory monitoring was performed. Maximal sterile bryant ier technique, hand hygiene, and skin preparation were followed. A mask, sterile gown, sterile gloves , a large sterile sheet, hand hygiene, and 2% chlorhexidine or iodine was utilized for skin antisepsi s. The existing dialysis catheter and surrounding skin were prepped and draped sterilely and infused with lidocaine. A stiff shaft Glidewire was advanced through each lumen of the hemodialysis catheter into the inferior vena cava. The existing hemodialysis catheter was exchanged for a new 28 cm double -lumen hemodialysis catheter, tip of which was placed at the cavoatrial junction. Adequate flow was o btained through both lumens of the catheter, which was then fastened to the skin surface. FINDINGS: After replacement of the dialysis catheter, the tip of the catheter is at the cavoatrial j unction. IMPRESSION: Exchange of dialysis catheter for new double lumen hemodialysis catheter as above. Dictated by: Maria Eugenia Ball M.D. on 02/03/2017 at 11:27 Approved by: Maria Eugenia Ball M.D. on 02/03/2017 at 11:27
[2017-02-03 11:30] VITALS: BP 107/68; PULSE 72; RESP 18; O2SAT 98
[2017-02-03 11:35] VITALS: BP 105/62; PULSE 68; RESP 16; O2SAT 98
[2017-02-03 11:40] VITALS: BP 103/59; PULSE 74; RESP 16; O2SAT 99
[2017-02-03 11:45] VITALS: BP 103/62; PULSE 74; RESP 16; O2SAT 99
[2017-02-03 11:58] VITALS: BP 101/62; PULSE 74; RESP 18; O2SAT 98
--- NOTE | 2017-02-03 12:00 | NUR ---
Discharge instructions reviewed with patient. No bleeding or hematoma at dialysis catheter site.Pt is ambulatory but long distances is difficult for him.Pt wheeled to cafeteria for lunch.
== END 2017-02-03 23:59 | disposition home or self-care (01) ==
LOC: SOUO 01:38
PROVIDERS: ATTEND Radiology Diagnostic Radiology
DX: Z49.01 Encounter for fitting and adjustment of extracorporeal dialysis catheter (principal); E11.22 Type 2 diabetes mellitus with diabetic chronic kidney disease; I13.11 Hypertensive heart and chronic kidney disease without heart failure, with stage 5 chronic kidney disease, or end stage renal disease; N18.6 End stage renal disease; Z99.2 Dependence on renal dialysis; Z87.891 Personal history of nicotine dependence
CPT/HCPCS: 36581; 77001; C1750; C1769; J1644

== ENCOUNTER 2017-03-08 09:08 | Day surgery (SDC) | payer MEDICARE, OTHER ==
[~2017-03-08] VITALS: Ht 182.9 cm; Wt 144.0 kg
[~2017-03-08 09:08] MED LIST changes: +0.9% Sodium Chloride 500 ML IV SCH; +CeFAZolin Inj 3 GM in IV Premix 1 EACH IV SCH
[2017-03-08] MEDS ORDERED: fentaNYL-PF 50 mCg/mL 2 mL Inj ONE (09:09)
[2017-03-08] MEDS ORDERED: Propofol 10,000 mCg/mL 20 mL Inj ONE (09:09)
[2017-03-08] MEDS ORDERED: EPHEDrine/NS 5 mg/mL 5 mL Syringe ONE (09:09)
[2017-03-08 09:23] VITALS: BP 127/64; PULSE 82; RESP 18; O2SAT 99
[2017-03-08] MEDS ORDERED: 0.9% Sodium Chloride 1,000 ML IV ONE (09:45)
[2017-03-08] MEDS ORDERED: 0.9% Sodium Chloride 250 ML IV PRN (13:17)
[2017-03-08] MEDS ORDERED: Lidocaine PF 1% 30 mL Inj INFILTRATE ONE (13:18)
[2017-03-08] MEDS ORDERED: Bupivacaine-MPF 0.5% 30 mL Inj INFILTRATE ONE (13:18)
[2017-03-08] MEDS ORDERED: Heparin 5,000 Unit/mL Inj IR ONE (13:18)
[2017-03-08] MEDS ORDERED: Atropine 0.4 mg/mL Inj IVPUSH PRN (13:20)
[2017-03-08] MEDS ORDERED: Phenylephrine 10,000 mCg/mL Inj IVPUSH PRN (13:20)
[2017-03-08] MEDS ORDERED: fentaNYL-PF 50 mCg/mL 2 mL Inj IVPUSH PRN (13:20)
[2017-03-08] MEDS ORDERED: Labetalol 5 mg/mL 4 mL Inj IV PRN (13:20)
[2017-03-08] MEDS ORDERED: EPHEDrine Sulfate 50 mg/mL Inj IVPUSH PRN (13:20)
[2017-03-08] MEDS ORDERED: Ondansetron 2 mg/mL 2 mL Inj IVPUSH PRN (13:20)
--- NOTE | 2017-03-08 13:21 | PCM.HPANE ---
Patient Data Surgeon Admitting Provider: Attending Provider:Deon Pineda MD Primary Care Physician:Xiomara Clark MD Other Provider:Andrade Felix Anesthesia Reason for Visit End-Stage Renal Failure Ht/WT & BMI Height (Feet): 6 Height (Inches): 0.00 Weight (Kilograms): 144.000 Body Mass Index 42.00 Allergies Coded Allergies: No Known Allergies (Unverified , 11/09/16) Past Anesthesia History Anesthesia History: Denies:: Abnormal Airway, Anesthesia Reactions, Difficult Intubation, Fam Anesthesia Reaction, Fam Malignant Hypertherm, Malignant Hyperthermia Diabetes History Hx Diabetes?: Yes Type of Diabetes: Type II Glycemic Control: Insulin Dependent Current Bedside Blood Glucose: 155 MRSA MRSA: No Medications Home Meds Incl Beta Neymar: No Active Scripts Folic Acid/Vitamin B Comp W-C (Nephro-Amira Tablet)0.8 Mg Tablet1 Tablet PO DAILY #30 TABLET Ref 6 Prov:Jh Barillas MD 10/29/16 Calcitriol (Rocaltrol)0.25 Mcg Capsule0.25 Mcg PO DAILY #30 CAPSULE Ref 6 Prov:Jh Barillas MD 10/29/16 Insulin Human Lispro (HumaLOG U100 Insulin Vial)100 Unit/Ml Unit SUBQ WMHS #60 UNIT Ref 3 Check blood sugars before meals and at bedtime. Use correction factor only before meals. Blood Sugar Lispro Correction: <151, 0 units; 151-175, 1 unit; 176-200, 2 units; 201-225, 3 units; 226-250, 4 units; 251-275, 5 units; 276-300, 6 units; 301-325, 7 units; 326-350, 8 units; 351-375, 9 units; 376-400, 10 units; >400, 12 units. Prov:Jh Barillas MD 10/29/16 Insulin Glargine (Lantus U100 Insulin Vial)100 Unit/Ml Vial8 Unit SUBQ HS #240 VIAL Ref 3 Prov:Jh Barillas MD 10/29/16 Calcium Acetate 667 Mg Tablet1,334 Mg PO TIDWM #90 TABLET Ref 6 Prov:Jh Barillas MD 10/29/16 Reported Medications Polyethylene Glycol 3350 17 Gm Powd.pack17 Gm PO 02/02/17 Ascorbic Acid (Vitamin C)250 Mg Tab.xpnh556 Mg PO DAILY #30 TABLET Ref 0 10/14/16 Ferrous Sulfate (Iron)325 Mg Capsule.er325 Mg PO DAILY 10/14/16 Tamsulosin ER 0.4 Mg Cap.er.24h0.4 Mg PO DAILY #90 10/14/16 Citalopram 20 Mg Wbgjzm37 Mg PO DAILY MOOD #90 03/16/16 History History of ENT Problems?: Yes HEENT History: Positive for:: Cataracts (Right eye) Sinus Problem (seasonal) Denies:: Dysphagia Denture Type: None Teeth Condition: Within Normal Limits Hx of Heart Problems?: Yes Cardiovascular History: Positive for:: Edema Hypertension Denies:: AICD Abdominal Aortic Aneurism Atrial Fibrillation Cardiac Surgery Chest Pain Congestive Heart Failure Coronary Artery Disease Heart Murmur Irregular Heartbeat Pacemaker Peripheral Vascular Rheumatic Fever Thrombophlebitis Valvular Heart Disease Hx of Respiratory Problem?: No Respiratory History: Denies:: Asthma COPD Chest Surgery Cough Dyspnea Emphysema Hemoptysis Oxygen Administration Pneumonia Pulmonary Embolism Tuberculosis Use of C-PAP Machine Use of Inhalers / NEBS Hx Neurologic Problems?: No Neurological History: Positive for:: Headaches Denies:: Alzheimer's Disease CVA Dementia Dizziness Multiple Sclerosis Parkinson's Disease Peripheral Neuropathy Seizures TIA Hx of GI Problems?: Yes Gastrointestinal History: Denies:: Cirrhosis Diverticulitis Gall Bladder Disease Gastroesphageal Reflux Gastrointestinal Bleeding Heartburn Hepatitis Hiatal Hernia Liver Disease Rectal Bleeding Hx of Problems?: Yes Genitourinary History: Positive for:: HX of Hemodialysis (Mon/Tue/Tue thru tunnel cath) Denies:: Kidney Stones Urinary Tract Infection HX of Peritoneal Dialysis: No Male Hx: Positive for:: Prostate Problems (BPH) Denies:: Scrotal Mass Testicular Surgery Skin History: Positive for:: History Skin Disorders? (itching skin) Denies:: Pressure Ulcers (stage 1 pressure ulcer buttocks wound clinic 01/2017) Hx Musculoskeletal Problems?: Yes Musculoskeletal History: Denies:: Back Injury Degenerative Joint Fibromyalgia Joint Replacement Musculoskeletal Trauma Myasthenia Gravis Osteoarthritis Rheumatoid Arthritis Systemic Lupus Hx of Psycho/Social Problems?: No Psycho Social History: Positive for:: Hx Depression Denies:: Anxiety Bipolar Disorder Suicide Attempt Hx Surgeries?: Yes (Tunnel catheter) Hx Any Other Health Problems?: Yes Other History: Positive for:: Hospitalization Denies:: Cancer Endocrine Disease Thyroid Disease History Blood Transfusions: Denies:: Blood Transfuse Reaction Blood Transfusions Hx Diabetes: YesBedside Blood Glucose: 155 Hx Alcohol Use: NoHx Substance Use: No Smoking Status: Former Smoker Have You Smoked inLast 12 mo: No Stop/Bang P-Blood Pressure: treated: No B- Body Mass Index > 35 kg/m2: Yes A- Age over 50: Yes N- Neck Large Circumference: Yes G- Gender Male: Yes Risk Assessment Category Category 1A: Patient has history of documented sleep apnea, and HAS NOT received any narcotic, sedative or anesthesia administration during this stay. Category 1B: Patient has history of documented sleep apnea, and HAS received any narcotic , sedative or anesthesia administration during this stay Category 2: Patient has SUSPECTED Obstructive Sleep Apnea, and HAS received any narcotic , sedative or anesthesia administration during this stay. Category 3: Patient has SUSPECTED Obstructive Sleep Apnea and HAS NOT received narcotic, sedative or anesthesia administration during this stay. Category 4: Outpatient in Procedural Areas with known sleep apnea or who screen positive for High Risk via the STOP/BANG questionnaire. Exam Exam Vital Signs Vital Signs Date Time Temp Pulse Resp B/P Pulse Ox O2 Delivery O2 Flow Rate FiO2 03/08/17 09:23 35.9 82 18 127/64 99 Room Air General Appearance: Alert, Oriented X3, Cooperative, No Acute Distress HEENT/AIRWAY: MP 2, Neck Movement (FROM, large neck circumference) Lungs: Clear to Auscultation, Diminished Heart: Exam Unremarkable, Regular Rate/Rhythm, No Murmurs/Rubs/Gallops Meds/Labs/Diagnostics Admission Meds Current Medications Sodium Chloride (Normal Saline) 1,000 ml @ ud STK-MED ONCE IV Last administered on 03/08/17t 09:45; Start 03/08/17 at 09:45; Stop 03/08/17 at 09:46; Status DC Bedside Blood Glucose: 155 Labs Test 03/08/17 10:05 Potassium Level 3.5mEq/L (3.5-5.2) Plan Impression Patient chart reviewed, patient interviewed and anesthestic plan with risks, benefits, and alternatives discussed, and informed consent obtained. NPO per Anesth. Guidelines: Yes ASA Physical Status: ASA4 Life Threatening (ESRD on dialysis) Anesthetic Plan: GA, MAC Bene/Risks/Altern/Consents: Yes HP Complete Prior to Induction: Yes Enrique Farias MD Mar 08, 2017 11:41
[2017-03-08] MEDS ORDERED: HYDROcodone-APAP 5-325 mg Tablet PO PRN (14:50)
[2017-03-08 15:00] VITALS: BP 120/66; PULSE 76; RESP 16; O2SAT 98
--- NOTE | 2017-03-08 15:42 | PCM.ANEP1 ---
Post Anesthesia PACU Phase 1 Assessment Vital Signs Vital Signs Date Time Temp Pulse Resp B/P Pulse Ox O2 Delivery O2 Flow Rate FiO2 03/08/17 09:23 35.9 82 18 127/64 99 Room Air Anesthetic Administered: GA, MAC Level of Alertness: Awake, talking RIOS's with Equal Strength: Yes Pain: No Nausea or Vomiting: No CV Function & Hydration Stable: Yes Airway Device: Oxygen Delivery: Room Air Lungs: Clear to Auscultation, Diminished Dermatome Level: Full Sensation PACU Phase 2 Assessment Complications: No Follow up Care: N/A Patient Instructions Provided: N/A Enrique Farias MD Mar 08, 2017 15:42
--- NOTE | 2017-03-08 23:16 | OP ---
[address] [address] OPERATIVE REPORT PATIENT: SUMAYA VASQUEZ : 1945 MR#: [id number] ADMIT: 03/08/2017 JOB ID: [id number] DATE OF SURGERY: 03/08/2017 PREOPERATIVE DIAGNOSIS(ES): End-stage renal failure. POSTOPERATIVE DIAGNOSIS(ES): End-stage renal failure. PROCEDURE: Right brachiocephalic arteriovenous fistula. SURGEON: Deon Pineda MD. OPEN HEARTH HELPER: Eileen Saunders MD. INDICATIONS: The patient is a 71-year-old man who has had progressive renal failure. He delayed coming for surgical access and ultimately required placement of a tunneled catheter and has been initiated on hemodialysis. He is now scheduled for a right brachiocephalic arteriovenous fistula. FINDINGS: At the conclusion of the procedure, he had an easily palpable thrill in the fistula and a palpable right radial pulse. DESCRIPTION OF PROCEDURE: At the beginning and end of the operation, SCOAP checklist was completed. He received deep sedation and local anesthesia with 1% lidocaine 0.5% bupivacaine. His right antecubital incision was made. The cephalic vein was identified. It was exposed down to a bifurcation. The brachial artery was then exposed and controlled proximally and distally with vessel loops. The bifurcation of the vein was ligated distally with 3-0 silk suture ligatures. I opened up the vein, but then there was significant venous bleeding and it was ultimately due to a lateral branch and then a posterior branch. The lateral branch was suture ligated and the deep branch clipped. The vein was flushed with heparinized saline. The artery was opened and flushed proximally and distally with heparinized saline. The anastomosis was done with a running 6-0 Prolene. After completing the anastomosis and the vein was backflushed to eliminate air within the vein, the artery was first backflushed into the vein followed by forward flushing into the vein and then forward flow to the hand with results as stated above. But, then the side branch that had been previously ligated with 3-0 silk was bleeding. The artery was reoccluded. With running 6-0 Prolene the side branch was closed. I then repeated the back-flushing and forward flushing maneuvers and then flow resumed up the fistula and into the hand and there was no bleeding from the anastomosis. The wound was closed with running subcutaneous 3-0 Vicryl and running subcuticular 4-0 Vicryl and Dermabond. The estimated blood loss was 30 cc. There were no apparent complications. The final sponge, needle and instrument counts were announced as correct. He was returned to the recovery room in stable condition. Critical assistance provided by Eileen Saunders MD.
== END 2017-03-08 23:59 | disposition home or self-care (01) ==
LOC: SAS 09:08
PROVIDERS: ATTEND Surgery
DX: I12.0 Hypertensive chronic kidney disease with stage 5 chronic kidney disease or end stage renal disease (principal); E11.22 Type 2 diabetes mellitus with diabetic chronic kidney disease; N18.6 End stage renal disease; I73.9 Peripheral vascular disease, unspecified; D63.1 Anemia in chronic kidney disease; F32.9 Major depressive disorder, single episode, unspecified; N40.0 Benign prostatic hyperplasia without lower urinary tract symptoms; E66.01 Morbid (severe) obesity due to excess calories; Z79.4 Long term (current) use of insulin; Z87.891 Personal history of nicotine dependence; Z68.41 Body mass index [BMI] 40.0-44.9, adult
CPT/HCPCS: 36415; 36818; 84132; J0131; J0690; J1644; J3010; J7030

== ENCOUNTER 2017-04-14 01:02 | Day surgery (SDC) | payer MEDICARE, OTHER ==
[~2017-04-14] VITALS: Ht 182.9 cm; Wt 145.0 kg
[~2017-04-14 01:02] MED LIST changes: -0.9% Sodium Chloride 500 ML IV SCH; -CeFAZolin Inj 3 GM in IV Premix 1 EACH IV SCH; +SENN-133 PO
[2017-04-14 11:40] VITALS: BP 93/53; PULSE 72; RESP 18; O2SAT 99
[2017-04-14] MEDS ORDERED: CALC667C9 PO (12:00)
[2017-04-14] MEDS ORDERED: INSU100I18 SUBQ (12:00)
[2017-04-14] MEDS ORDERED: Heparin 10,000 Unit/1,000 mL NS Premix IV ONE (13:15)
[2017-04-14] MEDS ORDERED: Heparin 1,000 Unit/mL 10 mL Inj ONE (15:23)
[2017-04-14 15:47] VITALS: BP 113/62; PULSE 78; O2SAT 100
[2017-04-14 15:50] VITALS: BP 101/48; PULSE 89; O2SAT 100
[2017-04-14 16:00] VITALS: BP 106/82; PULSE 85; O2SAT 99
--- NOTE | 2017-04-14 16:38 | NUR ---
[facility] DISCHARGE ASSUMED CARE OF PT AT 1550 UPON RETURN FROM [facility]. PT RECEIVED NO SEDATION AND DENIES ANY PAIN. LEFT UPPER CHEST TUNNEL CATH WITH OPSITE IS C/D/I AND REINFORCED WITH ADDITIONAL OPSITE. PT IS TAKING MEAL AND FLUIDS WITHOUT DIFFICULTY. DISCHARGE INSTRUCTIONS WERE REVIEWED AND PT VERBALIZED UNDERSTANDING. HE WAS TAKEN BY W/C TO HIS VEHICLE BY RN AT 1615 IN STABLE CONDITION.
--- NOTE | 2017-04-14 17:16 | DRSVH ---
PROCEDURE: CV REPLACE CATH TUNLD 1. Conscious sedation was not administered 2. Left internal jugular vein tunneled hemodialysis catheter exchange. 3. Fluoroscopic guidance for catheter placement. INDICATIONS: ESRD TECHNIQUE: The indications, alternatives, benefits, risks, and complications of the procedure were e xplained to the patient and any family members present. Informed written consent was obtained and pl aced in the chart. The patient was brought to the angiography suite, and conscious sedation was not administered. Maximum sterile barrier technique was employed per standard protocol, including hand hygiene, cap, ma sk, sterile gown and gloves, and 2% chlorhexidine. Sterile ultrasound probe cover was also utilized. 1% lidocaine was used for local anaesthesia. Under sonographic guidance, stiff shaft glide wires wer e advanced into the current coronal catheter ports. Catheter was removed over the wires and exchange for a new 28 [place] double lumen catheter. Adequate flow was obtained through both lumens of the cath eter. The venotomy was closed with Vicryl, and the catheter was fastened to the skin with Ticron. B oth lumens were flushed with heparinized saline. The patient tolerated the procedure without difficulty and was in stable condition at the conclusion of the procedure. COMPARISON: [facility], [facility], 11:06. FINDINGS: Fluoroscopic imaging demonstrates tip of the catheter at the cavoatrial junction. IMPRESSION: Left internal jugular vein tunneled hemodialysis catheter exchange. Dictated by: Clau Rico M.D. on 04/14/2017 at 17:12 Approved by: Clau Rico M.D. on 04/14/2017 at 17:14
== END 2017-04-14 23:59 | disposition home or self-care (01) ==
LOC: SOUO 01:02
PROVIDERS: ATTEND Radiology Neuroradiology
DX: Z49.01 Encounter for fitting and adjustment of extracorporeal dialysis catheter (principal); N18.6 End stage renal disease; I12.0 Hypertensive chronic kidney disease with stage 5 chronic kidney disease or end stage renal disease; E11.22 Type 2 diabetes mellitus with diabetic chronic kidney disease; D63.1 Anemia in chronic kidney disease; Z79.4 Long term (current) use of insulin
CPT/HCPCS: 36581; 77001; C1750; C1769; J1644